=== PATIENT | male | born 1960 | race African-American/Black ===

== ENCOUNTER 2019-10-29 17:43 | Inpatient (IN) | payer OTHER ==
--- NOTE | 2019-10-29 20:21 | HP ---
COWS - Scale Resting Pulse: 1= [place] 81-100 Sweatin= Chills/Flushing Restless Observation: 5= Unable to Sit Still Bone or Joint Aches: 4=Acute Joint/Muscle Pain Runny Nose/ Eye Tearin= Constantly Teary/Runny (runny nose) GI Upset > 30mins: 3= Vomiting/Diarrhea Tremor Observation: 2= Slight Tremor Visible Yawning Observation: 1= 1-2x During Session Anxiety or Irritability: 2=Irritable/Anxious Goose Flesh Skin: 0=Smooth Skin CIWA Score - Admission Criteria OAS Guidelines: Admission for Medically Managed Detox: Requires at least one of the followin. CIWA greater than 12 2. Seizures within the past 24 hours 3. Delirium tremens within the past 24 hours 4. Hallucinations within the past 24 hours 5. Acute intervention needed for co occurring medical disorder 6. Acute intervention needed for co occurring psychiatric disorder 7. Severe withdrawal that cannot be handled at a lower level of care (continued vomiting, continued diarrhea, abnormal vital signs) requiring intravenous medication and/or fluids 8. Admission ROS [facility] Chief Complaint: c/o withdrawal sx's. seeking heroin detox History of Present Illness: HERE FOR HEROIN DETOX. CLIENT IS REFERRED BY HIS HOUSING PROGRAM. FIRST ADMISSION. PRESENTS WITH C/O WITHDRAWAL SX'S. CLIENT REPORTS DAILY HEROIN USE VIA NASAL. HE DENIES IVDU, DRUG OVERDOSE. HE ALSO ABUSES MARIJUANA AND COCAINE. DENIES HX/O SEIZURES, SI/HI/AVH. LONGEST CLEAN TIME 5 YEARS RELAPSING 10 YEARS AGO. DENIES ANY SIGNIFICANT CLEAN TIME IN THE PAST YEAR. THIS IS HIS FIRST TIME SEEKING INPATIENT DRUG TXMENT. HOMELESS- LIVES IN JAIL, UNEMPLOYED, DENIES LEGALS Exam Limitations: No Limitations - Ebola screening Have you traveled outside of the country in the last 21 days: No Have you had contact with anyone from an Ebola affected area: No Have you been sick,other than usual withdrawal symptoms: No Do you have a fever: No - Review of Systems Constitutional: Chills, Loss of Appetite, Malaise, Night Sweats, Changes in sleep, Unintentional Wgt. Loss EENT: reports: Dental Problems (MISSING TEETH), Other (RUNNY NOSE) Respiratory: reports: No Symptoms reported Cardiac: reports: No Symptoms Reported, Edema (FEET) GI: reports: Nausea, Poor Appetite, Poor Fluid Intake, Vomiting : reports: Other (R INGUINAL HERNIA) Musculoskeletal: reports: Back Pain, Joint Pain, Neck Pain Integumentary: reports: Sweating Neuro: reports: Tremors, Unsteady Gait Endocrine: reports: No Symptoms Reported Hematology: reports: No Symptoms Reported Psychiatric: reports: Agitated (IRRITABLE), Anxious, Disorientated (TO DATE) Other Systems: Reviewed and Negative Patient History - Patient Medical History Hx Anemia: No Hx Asthma: No Hx Chronic Obstructive Pulmonary Disease (COPD): No Hx Cancer: No Hx Cardiac Disorders: No Hx Congestive Heart Failure: No Hx Hypertension: No Hx Hypercholesterolemia: No Hx Pacemaker: No HX Cerebrovascular Accident: Yes (STROKE 1.5 YEARS AGO R SIDE WEAKNESS) Hx Seizures: No Hx Dementia: No Hx Diabetes: No Hx Gastrointestinal Disorders: No Hx Liver Disease: No Hx Genitourinary Disorders: No Hx Sexually Transmitted Disorders: No Hx Renal Disease (ESRD): No Hx Thyroid Disease: No Hx Human Immunodeficiency Virus (HIV): Yes (NON COMPLIANT W MEDS/ DX 1984) Hx Hepatitis C: No Hx Depression: No Hx Suicide Attempt: No Hx Bipolar Disorder: No Hx Schizophrenia: No Other Medical History: DENIES - Patient Surgical History Past Surgical History: No Hx Orthopedic Surgery: Yes (1969 R ARM FX) Anesthesia Reaction: No - PPD History Previous Implant?: Yes Documented Results: Negative w/o proof Implanted On Prior [facility] Admission?: No PPD to be Administered?: Yes - Smoking Cessation Smoking history: Current every day smoker Have you smoked in the past 12 months: Yes Aproximately how many cigarettes per day: 10 Cigars Per Day: 0 Hx Chewing Tobacco Use: No Initiated information on smoking cessation: Yes 'Breaking Loose' booklet given: 10/29/19 - Substance & Tx. History Hx Alcohol Use: No Hx Substance Use: Yes Substance Use Type: Cocaine, Heroin, Marijuana Hx Substance Use Treatment: No - Substances abused Heroin Substance route: Inhalation Amount used: 10 BAGS Age of first use: 50 Date of last use: 10/28/19 Cocaine Substance route: Smoking Frequency: Daily Amount used: 2 GMS Age of first use: 18 Date of last use: 10/28/19 Marijuana/Hashish Substance route: Smoking Frequency: 3-6 times per week (5X) Amount used: 4 JOINTS Age of first use: 10 Date of last use: 10/28/19 Admission Physical Exam [facility] - Physical General Appearance: Yes: Cachetic, Tremorous (FELT), Irritable, Anxious, Other (UNKEPT) HEENTM: Yes: EOMI, Normocephalic, Normal Voice, PAUL, Pharynx Normal, Thrush, Other (DENTURES) Respiratory: Yes: Chest Non-Tender, Lungs Clear, Normal Breath Sounds, No Respiratory Distress, No Accessory Muscle Use Neck: Yes: No masses,lesions,Nodules, Supple, Trachea in good position Breast: Yes: Breasts Symetrical Cardiology: Yes: Regular Rhythm, S1, S2, Tachycardia Abdominal: Yes: Non Tender, Flat, Soft, Increased Bowel Sounds Genitourinary: Yes: Within Normal Limits Back: Yes: Normal Inspection Musculoskeletal: Yes: full range of Motion, Muscle weakness (RIGHT SIDE), Other (UNSTEADY AGIT) Extremities: Yes: Normal Capillary Refill, Normal Range of Motion, Non-Tender, Tremors (FELT) Neurological: Yes: Fully Oriented, Alert, Motor Strength 5/5, Depressed Affect Integumentary: Yes: Dry, Warm, Other (ONYCHOMICOSIS OF TOE NAILS) Lymphatic: Yes: Within Normal Limits - Diagnostic (1) Opioid dependence with withdrawal Current Visit: Yes Status: Acute (2) Cocaine dependence, uncomplicated Current Visit: Yes Status: Acute (3) Cannabis dependence, uncomplicated Current Visit: Yes Status: Acute (4) Lives in homeless fpc Current Visit: Yes Status: Chronic (5) HIV (human immunodeficiency virus infection) Current Visit: Yes Status: Chronic Qualifiers: HIV symptom status: unspecified Qualified Code(s): B20 - Human immunodeficiency virus [HIV] disease (6) History of CVA with residual deficit Current Visit: Yes Status: Resolved (7) Right sided weakness Current Visit: Yes Status: Chronic (8) Non compliance w medication regimen Current Visit: Yes Status: Chronic (9) Cachexia associated with AIDS Current Visit: Yes Status: Chronic (10) Candidiasis of mouth Current Visit: Yes Status: Chronic (11) Onychomycosis Current Visit: Yes Status: Chronic Cleared for Admission [facility] - Detox or Rehab [facility] Level of Care: Medically Managed Detox Regimen/Protocol: Methadone Claeared for Rehab Admission: No Inpatient Rehab Admission - Rehab Decision to Admit Inpatient rehab admission?: No
[2019-10-29] MEDS ORDERED: ONDANSETRON *ODT* 4 MG TABLET SL PRN (20:34)
[2019-10-29] MEDS ORDERED: IBUPROFEN 400 MG TABLET (FP) PO PRN (20:34)
[2019-10-29] MEDS ORDERED: MAGNESIUM HYDROX 2400MG/30ML ORAL SUSPENSION 30 ML CUP PO PRN (20:34)
[2019-10-29] MEDS ORDERED: BISMUTH SUBSALICYLATE 524 MG/30 ML UD PO PRN (20:34)
[2019-10-29] MEDS ORDERED: MAGNESIUM CITRATE 300 ML BOTTLE PO PRN (20:34)
[2019-10-29] MEDS ORDERED: NALOXONE HCL 0.4 MG/ML VIAL IM PRN (20:34)
[2019-10-29] MEDS ORDERED: METHOCARBAMOL 500 MG TABLET PO PRN (20:34)
[2019-10-29] MEDS ORDERED: ACETAMINOPHEN 325 MG TABLET (FP) PO PRN ×2 (20:34)
[2019-10-29] MEDS ORDERED: MENTHOL/PHENOL 1 EACH UD MM PRN (20:34)
[2019-10-29] MEDS ORDERED: cloNIDine HCL 0.1 MG TABLET PO PRN (20:34)
[2019-10-29] MEDS ORDERED: P-EPHED 60MG/TRIPROLIDI 2.5MG TABLET PO PRN (20:34)
[2019-10-29] MEDS ORDERED: DICYCLOMINE HCL 10 MG CAPSULE PO PRN (20:34)
[2019-10-29] MEDS ORDERED: NICOTINE POLACRILEX 2 MG GUM BUC PRN (20:34)
[2019-10-29] MEDS ORDERED: MAG HYDROX/AL HYDROX/SIMETH 30 ML UNIT-DOSE CUP PO PRN (20:34)
[2019-10-29 21:52] VITALS: BMI 19.0
[2019-10-29] MEDS ORDERED: METHADONE HCL 10 MG TABLET (FOR DETOX USE ONLY) PO ONE (22:00)
[2019-10-29] MEDS: MELATONIN 5 MG TABLETS PO SCH (22:35)
[2019-10-29] MEDS: THIAMINE HCL 100 MG TABLET (FP) PO SCH (22:35)
[2019-10-29] MEDS: NYSTATIN 500,000 UNITS/5 ML SUSPENSION PO SCH (23:18)
[2019-10-30] MEDS: NYSTATIN 500,000 UNITS/5 ML SUSPENSION PO SCH ×4 (05:18→23:04)
[2019-10-30] MEDS ORDERED: METHADONE HCL 10 MG TABLET (FOR DETOX USE ONLY) PO ONE (10:00)
[2019-10-30 10:11] LABS: HEMATOCRIT 32.4 % (35.4-49); HEMOGLOBIN 10.8 GM/dL (11.7-16.9); MCH 28.7 pg (25.7-33.7); MCHC 33.4 g/dl (32.0-35.9); MEAN CELL VOLUME 85.7 fl (80-96); MEAN PLT VOLUME 8.1 fl (7.5-11.1); PLATELET COUNT 219 K/MM3 (134-434); RBC 3.78 M/mm3 (4.00-5.60); RDW 14.3 % (11.9-15.9); WHITE BLOOD COUNT 7.9 K/mm3 (4.0-10.0)
[2019-10-30 10:27] LABS: ALBUMIN 1.6 g/dl (3.4-5.0); BILIRUBIN,TOTAL 1.1 mg/dL (0.2-1); BLOOD UREA NITROGEN 16.6 mg/dL (7-18); CALCIUM 8.1 mg/dL (8.5-10.1); CREATININE 0.9 mg/dL (0.55-1.3); POTASSIUM 3.6 mmol/L (3.5-5.1)
[2019-10-30] MEDS: PRENATAL VITAMINS W/ FOLIC ACID TABLET (FP) PO SCH (10:52)
[2019-10-30] MEDS: NICOTINE 14 MG/24 HOURS TOPICAL PATCH TD SCH (10:56)
--- NOTE | 2019-10-30 11:56 | PN ---
S COWS - Scale Resting Pulse: 2= [place] 101-120 Sweatin= Beads of Sweat on Face Restless Observation: 1= Difficult to Sit Still Pupil Size: 0= Normal to Room Light Bone or Joint Aches: 2= Severe Diffuse Aches Runny Nose/ Eye Tearin= None GI Upset > 30mins: 0= None Tremor Observation of Outstretched Hands: 0= None Yawning Observation: 1= 1-2x During Session Anxiety or Irritability: 2=Irritable/Anxious Goose Flesh Skin: 0=Smooth Skin COWS Score: 11 [facility] Progress Note (SOAP) Subjective: c/o anxiety, muscle aches, sweats, and irritability. Objective: 10/30/19 11:55 Vital Signs 10/30/19 10/30/19 06:23 09:05 Temperature 98.6 F 98.0 F Pulse Rate 90 102 H Respiratory 16 20 Rate Blood Pressure 106/62 96/53 L O2 Sat by Pulse 96 Oximetry (%) Laboratory Last Values WBC 7.9 K/mm3 (4.0-10.0) 10/30/19 07:25 RBC 3.78 M/mm3 (4.00-5.60) L 10/30/19 07:25 Hgb 10.8 GM/dL (11.7-16.9) L 10/30/19 07:25 Hct 32.4 % (35.4-49) L 10/30/19 07:25 MCV 85.7 fl (80-96) 10/30/19 07:25 MCH 28.7 pg (25.7-33.7) 10/30/19 07:25 MCHC 33.4 g/dl (32.0-35.9) 10/30/19 07:25 RDW 14.3 % (11.9-15.9) 10/30/19 07:25 Plt Count 219 K/MM3 (134-434) 10/30/19 07:25 MPV 8.1 fl (7.5-11.1) 10/30/19 07:25 Sodium 136 mmol/L (136-145) 10/30/19 07:25 Potassium 3.6 mmol/L (3.5-5.1) 10/30/19 07:25 Chloride 102 mmol/L (98-107) 10/30/19 07:25 Carbon Dioxide 27 mmol/L (21-32) 10/30/19 07:25 Anion Gap 7 MMOL/L (8-16) L 10/30/19 07:25 BUN 16.6 mg/dL (7-18) 10/30/19 07:25 Creatinine 0.9 mg/dL (0.55-1.3) 10/30/19 07:25 Est GFR (CKD-EPI)AfAm 107.22 10/30/19 07:25 Est GFR (CKD-EPI)NonAf 92.51 10/30/19 07:25 Random Glucose 90 mg/dL (74-106) 10/30/19 07:25 Calcium 8.1 mg/dL (8.5-10.1) L 10/30/19 07:25 Total Bilirubin 1.1 mg/dL (0.2-1) H 10/30/19 07:25 AST 17 U/L (15-37) 10/30/19 07:25 ALT 7 U/L (13-61) L 10/30/19 07:25 Alkaline Phosphatase 71 U/L (45-117) 10/30/19 07:25 Total Protein 7.0 g/dl (6.4-8.2) 10/30/19 07:25 Albumin 1.6 g/dl (3.4-5.0) L 10/30/19 07:25 Syphilis Serology Reactive (NONREACTIVE) A* 10/30/19 07:25 Labs noted. Assessment: 10/30/19 11:55 AOX3, in no acute respiratory distress. Full ROM, ambulating in the unit. Withdrawal symptoms. Plan: continue detox.
--- NOTE | 2019-10-30 15:00 | EKG ---
Test Reason : Blood Pressure : / mmHG Vent. Rate : 100 BPM Atrial Rate : 100 BPM P-R Int : 160 ms QRS Dur : 082 ms QT Int : 372 ms P-R-T Axes : 081 084 077 degrees QTc Int : 479 ms NORMAL SINUS RHYTHM NORMAL ECG NO PREVIOUS ECGS AVAILABLE Confirmed by Neal Bruner ([id number]) on 10/30/2019 2:59:58 PM Referred By: Confirmed By:Neal Bruner
--- NOTE | 2019-10-30 16:12 | CONSULT ---
[facility] Psychiatric Consult - Data Date of interview: 10/30/19 Admission source: [facility] Identifying data: First visit to [facility] and admission to [address] [place] [address] for this 58 y/o AA male, self-referred for detoxification treatment. CHRISTIE issues : heroin, cocaine, cannabis, nicotine. Patient is , father of five, domiciled (O setting), unemployed and supported on welfare. Substance Abuse History: Discussed with the patient. CHRISTIE profile as follows : Smoking history: Current every day smoker. Have you smoked in the past 12 months: Yes. Approximately how many cigarettes per day: 10. Cigars Per Day: 0. Hx Chewing Tobacco Use: No. Initiated information on smoking cessation: Yes. 'Breaking Loose' booklet given: 10/29/19. - Substance & Tx. History. Hx Alcohol Use: No. Hx Substance Use: Yes. Substance Use Type: Cocaine, Heroin, Marijuana. Hx Substance Use Treatment: No. - Substances abused. Heroin. Substance route: Inhalation. Amount used: 10 BAGS. Age of first use: 50. Date of last use: 10/28/19. Cocaine. Substance route: Smoking. Frequency: Daily. Amount used: 2 GMS. Age of first use: 18. Date of last use: 10/28/19. Marijuana/Hashish. Substance route: Smoking. Frequency: 3-6 times per week (5X). Amount used: 4 JOINTS. Age of first use: 10. Date of last use: 10/28/19. History of multiple CHRISTIE treatment failures. Medical History: Medical profile is remarkable for HIV infection since 1985 (non-adherent to ART medications), cachexia, CVA with right sided weakness since 2019 (uses a walker or cane for ambulation), onychomcosis (toe nails) and history of orthosurgery (fracture of right arm in 1970). Psychiatric History: Patient denies history of psychiatric hospitalizations, OPD care or suicide attempts. Physical/Sexual Abuse/Trauma History: Patient denies history of abuse. Additional Comment: Toxicology results not found for review. Mental Status Exam - Mental Status Exam Alert and Oriented to: Time, Place, Person Cognitive Function: Good Patient Appearance: Unkempt, Disheveled (thin habitus, cachectic frame; tall stature; patient appears much older than his stated age) Mood: Withdrawn, Hopeful Affect: Mood Congruent, Constricted Patient Behavior: Fatigued, Talkative (friendly on approach), Appropriate, Cooperative Speech Pattern: Clear, Appropriate Voice Loudness: Normal Thought Process: Intact, Goal Oriented Thought Disorder: Not Present Hallucinations: Denies Suicidal Ideation: Denies Homicidal Ideation: Denies Insight/Judgement: Poor Sleep: Fair Appetite: Poor, Weight loss Gait/Station: Other (unsteady gait; uses a wheelchair to move around the unit) Psychiatric Findings - Problem List ([place] 1, 2,3) (1) Opioid dependence with withdrawal Current Visit: Yes Status: Acute (2) Cannabis dependence, uncomplicated Current Visit: Yes Status: Chronic (3) Cocaine dependence, uncomplicated Current Visit: Yes Status: Chronic (4) Nicotine dependence Current Visit: Yes Status: Chronic - Initial Treatment Plan Initial Treatment Plan: Psychoeducation. Falls precautions. Sleep hygiene. Support. Motivational counseling. Detoxification in progress. Observation.
[2019-10-30] MEDS ORDERED: PNEUMOC 13-VAL CONJ-DIP CRM/PF 0.5 ML DISP.SYRIN IM ONE ×2 (17:00→18:15)
[2019-10-30 19:33] LABS: EPI CELLS 7 /uL (0-25.1); HYALINE CASTS 0 /uL (0-3.1); URINE APPEARANCE CLEAR; URINE BACTERIA 48 /uL (0-1359); URINE BILIRUBIN NEGATIVE (NEGATIVE); URINE COLOR DK YELLOW; URINE GLUCOSE (UA) NEGATIVE (NEGATIVE); URINE KETONE NEGATIVE (NEGATIVE); URINE LEUK ESTERASE NEGATIVE (NEGATIVE); URINE NITRITE NEGATIVE (NEGATIVE); URINE PROTEIN 1+ (NEGATIVE); URINE RBC 20 /uL (0-23.9); URINE UROBILINOGEN 4.0 E.U/dl mg/dL (0.2-1.0); URINE WBC 4 /uL (0-25.8)
[2019-10-30] MEDS: THIAMINE HCL 100 MG TABLET (FP) PO SCH (23:04)
[2019-10-30] MEDS: MELATONIN 5 MG TABLETS PO SCH (23:04)
[2019-10-31] MEDS: NYSTATIN 500,000 UNITS/5 ML SUSPENSION PO SCH ×4 (05:27→23:24)
--- NOTE | 2019-10-31 09:40 | PN ---
[facility] COWS - Scale Resting Pulse: 2= [place] 101-120 Sweatin= Chills/Flushing Restless Observation: 0= Sits Still Pupil Size: 1= Pupils >than Normal Bone or Joint Aches: 1= Mild Discomfort Runny Nose/ Eye Tearin= None GI Upset > 30mins: 2= Nausea/Diarrhea Tremor Observation of Outstretched Hands: 1= Tremor [place], Not Seen Yawning Observation: 0= None Anxiety or Irritability: 1=Feels Anxious/Irritable Goose Flesh Skin: 0=Smooth Skin COWS Score: 9 S Progress Note (SOAP) Subjective: 58 years old male was admitted on 10/29/19 for opiate withdrawal sx management treating with methadone detox regiment mr lebron states that he lost his walker and use wheelchair assisting ambulation when "I am here" ate breakfast tolerated well continue ensure supplement Objective: 10/31/19 09:39 Vital Signs - 24 hr 10/30/19 10/30/19 10/30/19 12:53 14:39 16:40 Temperature 97.7 F 98 F Pulse Rate 90 95 H Respiratory 20 16 Rate Blood Pressure 96/52 L 96/60 O2 Sat by Pulse 92 L 96 96 Oximetry (%) 10/30/19 10/31/19 10/31/19 20:56 06:13 08:58 Temperature 98.0 F 98.1 F 99.1 F Pulse Rate 92 H 84 102 H Respiratory 16 18 20 Rate Blood Pressure 97/56 L 105/58 L 112/56 L O2 Sat by Pulse 98 96 Oximetry (%) Laboratory Tests 10/29/19 10/30/19 10/30/19 22:15 07:25 07:25 WBC 7.9 RBC 3.78 L Hgb 10.8 L Hct 32.4 L MCV 85.7 MCH 28.7 MCHC 33.4 RDW 14.3 Plt Count 219 MPV 8.1 Sodium Potassium Chloride Carbon Dioxide Anion Gap BUN Creatinine Est GFR (CKD-EPI)AfAm Est GFR (CKD-EPI)NonAf Random Glucose Calcium Total Bilirubin AST ALT Alkaline Phosphatase Total Protein Albumin Urine Color Urine Appearance Urine pH Ur Specific [place] Urine Protein Urine Glucose (UA) Urine Ketones Urine Blood Urine Nitrite Urine Bilirubin Urine Urobilinogen Ur Leukocyte Esterase Urine WBC (Auto) Urine RBC (Auto) Urine Casts (Auto) U Epithel Cells (Auto) Urine Bacteria (Auto) Syphilis Serology Reactive A* RPR Titer COVID-19 (LARY) Not detected 10/30/19 10/30/19 10/30/19 07:25 07:25 17:24 WBC RBC Hgb Hct MCV MCH MCHC RDW Plt Count MPV Sodium 136 Potassium 3.6 Chloride 102 Carbon Dioxide 27 Anion Gap 7 L BUN 16.6 Creatinine 0.9 Est GFR (CKD-EPI)AfAm 107.22 Est GFR (CKD-EPI)NonAf 92.51 Random Glucose 90 Calcium 8.1 L Total Bilirubin 1.1 H AST 17 ALT 7 L Alkaline Phosphatase 71 Total Protein 7.0 Albumin 1.6 L Urine Color Dk yellow Urine Appearance Clear Urine pH 7.0 Ur Specific [place] 1.020 Urine Protein 1+ H Urine Glucose (UA) Negative Urine Ketones Negative Urine Blood Negative Urine Nitrite Negative Urine Bilirubin Negative Urine Urobilinogen 4.0 e.u/dl Ur Leukocyte Esterase Negative Urine WBC (Auto) 4 Urine RBC (Auto) 20 Urine Casts (Auto) 0 U Epithel Cells (Auto) 7 Urine Bacteria (Auto) 48 Syphilis Serology RPR Titer Reactive 1:1 H COVID-19 (LARY) 10/31/19 09:41 syphilis contacted treated Assessment: 10/31/19 09:41 opiate withdrawal Plan: methadone regiment
[2019-10-31] MEDS ORDERED: METHADONE HCL 5 MG TABLET (FOR DETOX USE ONLY) PO ONE (10:00)
[2019-10-31] MEDS: NICOTINE 14 MG/24 HOURS TOPICAL PATCH TD SCH (10:46)
[2019-10-31] MEDS: PRENATAL VITAMINS W/ FOLIC ACID TABLET (FP) PO SCH (10:46)
[2019-10-31] MEDS: guaiFENesin 200 MG/10 ML 10 ML UNIT-DOSE CUPS PO PRN (17:00)
[2019-10-31] MEDS: THIAMINE HCL 100 MG TABLET (FP) PO SCH (22:33)
[2019-10-31] MEDS: MELATONIN 5 MG TABLETS PO SCH (22:34)
[2019-11-01] MEDS: NYSTATIN 500,000 UNITS/5 ML SUSPENSION PO SCH ×4 (06:23→23:03)
[2019-11-01] MEDS ORDERED: METHADONE HCL 5 MG TABLET (FOR DETOX USE ONLY) ONE (09:42)
[2019-11-01] MEDS ORDERED: METHADONE HCL 10 MG TABLET (FOR DETOX USE ONLY) ONE (09:42)
[2019-11-01] MEDS ORDERED: METHADONE (DETOX) 10 MG, METHADONE (DETOX) 5 MG PO ONE (10:00)
[2019-11-01] MEDS: PRENATAL VITAMINS W/ FOLIC ACID TABLET (FP) PO SCH (10:50)
[2019-11-01] MEDS: NICOTINE 14 MG/24 HOURS TOPICAL PATCH TD SCH (11:12)
--- NOTE | 2019-11-01 14:36 | PN ---
BHS COWS - Scale Resting Pulse: 2= [place] 101-120 Sweatin= No chills or Flushing Restless Observation: 0= Sits Still Pupil Size: 0= Normal to Room Light Bone or Joint Aches: 1= Mild Discomfort Runny Nose/ Eye Tearin= Nasal Congestion GI Upset > 30mins: 1= Stomach Cramp Tremor Observation of Outstretched Hands: 1= Tremor [place], Not Seen Yawning Observation: 1= 1-2x During Session Anxiety or Irritability: 1=Feels Anxious/Irritable Goose Flesh Skin: 0=Smooth Skin COWS Score: 8 [facility] Progress Note (SOAP) Subjective: alert,irritable,anxious,interrupted sleep,aching pain Objective: 11/01/19 14:35 Vital Signs Temperature 97.2 F L 11/01/19 12:45 Pulse Rate 101 H 11/01/19 12:45 Respiratory Rate 115 H 11/01/19 12:45 Blood Pressure 92/58 L 11/01/19 08:42 O2 Sat by Pulse Oximetry (%) 95 11/01/19 12:45 Assessment: 11/01/19 14:35 withdrawal symptom Plan: continue detox methadone regimen,fluid
[2019-11-01] MEDS: guaiFENesin 200 MG/10 ML 10 ML UNIT-DOSE CUPS PO PRN ×2 (17:00→22:51)
[2019-11-01] MEDS: MELATONIN 5 MG TABLETS PO SCH (22:51)
[2019-11-01] MEDS: THIAMINE HCL 100 MG TABLET (FP) PO SCH (22:51)
[2019-11-02] MEDS: NYSTATIN 500,000 UNITS/5 ML SUSPENSION PO SCH ×3 (06:28→18:56)
[2019-11-02] MEDS: NICOTINE 14 MG/24 HOURS TOPICAL PATCH TD SCH (09:12)
[2019-11-02] MEDS: PRENATAL VITAMINS W/ FOLIC ACID TABLET (FP) PO SCH (09:12)
[2019-11-02] MEDS ORDERED: METHADONE HCL 10 MG TABLET (FOR DETOX USE ONLY) PO ONE (10:00)
--- NOTE | 2019-11-02 11:13 | PN ---
BHS COWS - Scale Resting Pulse: 1= [place] 81-100 Sweatin= No chills or Flushing Restless Observation: 0= Sits Still Pupil Size: 0= Normal to Room Light Bone or Joint Aches: 1= Mild Discomfort Runny Nose/ Eye Tearin= Nasal Congestion GI Upset > 30mins: 1= Stomach Cramp Tremor Observation of Outstretched Hands: 1= Tremor [place], Not Seen Yawning Observation: 0= None Anxiety or Irritability: 1=Feels Anxious/Irritable Goose Flesh Skin: 0=Smooth Skin COWS Score: 6 BHS Progress Note (SOAP) Subjective: alert,irritable,interrupted sleep,constipation,feel weak,using the wheelchair Objective: 11/02/19 11:11 Vital Signs Temperature 97.3 F L 11/02/19 08:50 Pulse Rate 100 H 11/02/19 08:50 Respiratory Rate 20 11/02/19 08:50 Blood Pressure 83/53 L 11/02/19 08:50 O2 Sat by Pulse Oximetry (%) 95 11/02/19 05:10 Assessment: 11/02/19 11:12 withdrawal symptom but much less Plan: continue detox methadone regimen,discharge in am
[2019-11-02] MEDS: THIAMINE HCL 100 MG TABLET (FP) PO SCH (22:56)
[2019-11-02] MEDS: MELATONIN 5 MG TABLETS PO SCH (22:56)
[2019-11-03] MEDS: NYSTATIN 500,000 UNITS/5 ML SUSPENSION PO SCH ×3 (03:42→11:22)
[2019-11-03] MEDS ORDERED: METHADONE HCL 5 MG TABLET (FOR DETOX USE ONLY) PO ONE (06:00)
--- NOTE | 2019-11-03 09:19 | PN ---
[facility] CIWA - CIWA Score Nausea/Vomitin-No Nausea/No Vomiting Muscle Tremors: None Anxiety: 1-Mildly Anxious Agitation: 0-Normal Activity Paroxysmal Sweats: No Perspiration Orientation: 0-Oriented Tacttile Disturbances: 0-None Auditory Disturbances: 0-None Visual Disturbances: 0-None Headache: 0-None Present CIWA-Ar Total Score: 1 S Progress Note (SOAP) Subjective: alert,no complaint Objective: 11/03/19 09:18 Vital Signs Temperature 98.1 F 11/03/19 06:25 Pulse Rate 92 H 11/03/19 06:25 Respiratory Rate 92 H 11/03/19 06:25 Blood Pressure 110/64 11/03/19 06:25 O2 Sat by Pulse Oximetry (%) 95 11/03/19 06:25 Assessment: 11/03/19 09:18 detox completed,no withdrawal symptom Plan: stable for discharge today,follow up with after care program [facility] arrangement
--- NOTE | 2019-11-03 09:25 | DS ---
[facility] Detox Discharge Summary Admission Date: 10/29/19 Discharge Date: 11/03/19 - History Present History: Cannabis Dependence, Cocaine Dependence, Opioid Dependence Additional Comments: alert,oriented x 3 lung clear on auscultation bilaterally abdomen soft,no pain,no tenderness no swelling of legs detox completed,no withdrawal symptom stable for discharge today follow up with after care program [facility] arrangement follow up with after care program [facility] as arrangement total time of discharge spending 35 minutes Pertinent Past History: history of old cva with right side weakness oropharyngeal candidiasis onychomycosis weight loss ambulation with walker but loss the walker history of syphilis treated - Physical Exam Results Vital Signs: Vital Signs Temperature 98.1 F 11/03/19 06:25 Pulse Rate 92 H 11/03/19 06:25 Respiratory Rate 92 H 11/03/19 06:25 Blood Pressure 110/64 11/03/19 06:25 O2 Sat by Pulse Oximetry (%) 95 11/03/19 06:25 Pertinent Admission Physical Exam Findings: withdrawal signs and symptom Vital Signs Temperature 98.1 F 11/03/19 06:25 Pulse Rate 92 H 11/03/19 06:25 Respiratory Rate 92 H 11/03/19 06:25 Blood Pressure 110/64 11/03/19 06:25 O2 Sat by Pulse Oximetry (%) 95 11/03/19 06:25 Laboratory Last Values WBC 7.9 K/mm3 (4.0-10.0) 10/30/19 07:25 RBC 3.78 M/mm3 (4.00-5.60) L 10/30/19 07:25 Hgb 10.8 GM/dL (11.7-16.9) L 10/30/19 07:25 Hct 32.4 % (35.4-49) L 10/30/19 07:25 MCV 85.7 fl (80-96) 10/30/19 07:25 MCH 28.7 pg (25.7-33.7) 10/30/19 07:25 MCHC 33.4 g/dl (32.0-35.9) 10/30/19 07:25 RDW 14.3 % (11.9-15.9) 10/30/19 07:25 Plt Count 219 K/MM3 (134-434) 10/30/19 07:25 MPV 8.1 fl (7.5-11.1) 10/30/19 07:25 Sodium 136 mmol/L (136-145) 10/30/19 07:25 Potassium 3.6 mmol/L (3.5-5.1) 10/30/19 07:25 Chloride 102 mmol/L (98-107) 10/30/19 07:25 Carbon Dioxide 27 mmol/L (21-32) 10/30/19 07:25 Anion Gap 7 MMOL/L (8-16) L 10/30/19 07:25 BUN 16.6 mg/dL (7-18) 10/30/19 07:25 Creatinine 0.9 mg/dL (0.55-1.3) 10/30/19 07:25 Est GFR (CKD-EPI)AfAm 107.22 10/30/19 07:25 Est GFR (CKD-EPI)NonAf 92.51 10/30/19 07:25 Random Glucose 90 mg/dL (74-106) 10/30/19 07:25 Calcium 8.1 mg/dL (8.5-10.1) L 10/30/19 07:25 Total Bilirubin 1.1 mg/dL (0.2-1) H 10/30/19 07:25 AST 17 U/L (15-37) 10/30/19 07:25 ALT 7 U/L (13-61) L 10/30/19 07:25 Alkaline Phosphatase 71 U/L (45-117) 10/30/19 07:25 Total Protein 7.0 g/dl (6.4-8.2) 10/30/19 07:25 Albumin 1.6 g/dl (3.4-5.0) L 10/30/19 07:25 Urine Color Dk yellow 10/30/19 17:24 Urine Appearance Clear 10/30/19 17:24 Urine pH 7.0 (5.0-8.0) 10/30/19 17:24 Ur Specific [place] 1.020 (1.010-1.035) 10/30/19 17:24 Urine Protein 1+ (NEGATIVE) H 10/30/19 17:24 Urine Glucose (UA) Negative (NEGATIVE) 10/30/19 17:24 Urine Ketones Negative (NEGATIVE) 10/30/19 17:24 Urine Blood Negative (NEGATIVE) 10/30/19 17:24 Urine Nitrite Negative (NEGATIVE) 10/30/19 17:24 Urine Bilirubin Negative (NEGATIVE) 10/30/19 17:24 Urine Urobilinogen 4.0 e.u/dl mg/dL (0.2-1.0) 10/30/19 17:24 Ur Leukocyte Esterase Negative (NEGATIVE) 10/30/19 17:24 Urine WBC (Auto) 4 /uL (0-25.8) 10/30/19 17:24 Urine RBC (Auto) 20 /uL (0-23.9) 10/30/19 17:24 Urine Casts (Auto) 0 /uL (0-3.1) 10/30/19 17:24 U Epithel Cells (Auto) 7 /uL (0-25.1) 10/30/19 17:24 Urine Bacteria (Auto) 48 /uL (0-1359) 10/30/19 17:24 Syphilis Serology Reactive (NONREACTIVE) A* 10/30/19 07:25 RPR Titer Reactive 1:1 (NONREACTIVE) H 10/30/19 07:25 COVID-19 (LARY) Not detected (Not Detected) 10/29/19 22:15 history of syphilis treated - Treatment Hospital Course: Detox Protocol Followed, Detoxed Safely, Responded well, Discharged Condition Good, Rehab Referral Accepted Patient has Accepted a Rehab Referral to: [facility] - Medication Discharge Medications: Ambulatory Orders NK [No Known Home Medication] 10/29/19 - Diagnosis (1) Opioid dependence with withdrawal Current Visit: Yes Status: Acute (2) Syphilis contact, treated Current Visit: Yes Status: Acute (3) Cachexia associated with AIDS Current Visit: Yes Status: Chronic (4) Cannabis dependence, uncomplicated Current Visit: Yes Status: Chronic (5) Cocaine dependence, uncomplicated Current Visit: Yes Status: Chronic (6) HIV (human immunodeficiency virus infection) Current Visit: Yes Status: Chronic Qualifiers: HIV symptom status: unspecified Qualified Code(s): B20 - Human immunodeficiency virus [HIV] disease (7) Nicotine dependence Current Visit: Yes Status: Chronic (8) Onychomycosis Current Visit: Yes Status: Chronic (9) Right sided weakness Current Visit: Yes Status: Chronic (10) CVA (cerebral vascular accident) Current Visit: Yes Status: Chronic (11) Weight loss Current Visit: Yes Status: Acute (12) Walker as ambulation aid Current Visit: Yes Status: Acute
[2019-11-03 09:46] VITALS: BP 100/66; PULSE 104; TEMP 99.3
[2019-11-03] MEDS: PRENATAL VITAMINS W/ FOLIC ACID TABLET (FP) PO SCH (11:20)
[2019-11-03] MEDS: NICOTINE 14 MG/24 HOURS TOPICAL PATCH TD SCH (11:24)
== END 2019-11-03 11:22 | disposition other institution (70) | DRG 773 ==
LOC: YASAS 17:43 → Y3N 20:59
PROVIDERS: ADMIT Allergy & Immunology; ATTEND Allergy & Immunology
PROC: HZ2ZZZZ Detoxification Services for Substance Abuse Treatment (ICD-10-PCS; principal; 2019-10-29)
DX: F11.23 Opioid dependence with withdrawal (principal); F14.20 Cocaine dependence, uncomplicated; F12.20 Cannabis dependence, uncomplicated; B20 Human immunodeficiency virus [HIV] disease; R64 Cachexia; B37.0 Candidal stomatitis; I69.851 Hemiplegia and hemiparesis following other cerebrovascular disease affecting right dominant side; B35.1 Tinea unguium; R26.89 Other abnormalities of gait and mobility; Z68.1 Body mass index [BMI] 19.9 or less, adult; Z99.89 Dependence on other enabling machines and devices; Z56.0 Unemployment, unspecified; Z59.0 Homelessness; Z86.19 Personal history of other infectious and parasitic diseases
CPT/HCPCS: 36415; 80053; 81003; 85027; 86593; 86780; 90670; 93005; 93010; Q0162; U0003

== ENCOUNTER 2019-11-03 11:28 | Inpatient (IN) | payer OTHER ==
[2019-11-03] MEDS ORDERED: hydrOXYzine PAMOATE 25 MG CAPSULE (FP) PO PRN (13:25)
[2019-11-03] MEDS ORDERED: MAG HYDROX/AL HYDROX/SIMETH 30 ML UNIT-DOSE CUP PO PRN (13:25)
[2019-11-03] MEDS ORDERED: MAGNESIUM HYDROX 2400MG/30ML ORAL SUSPENSION 30 ML CUP PO PRN (13:25)
[2019-11-03] MEDS ORDERED: LOPERAMIDE HCL 2 MG CAPSULE PO PRN (13:25)
[2019-11-03] MEDS ORDERED: NICOTINE POLACRILEX 2 MG GUM BUC PRN (13:25)
[2019-11-03] MEDS ORDERED: P-EPHED 60MG/TRIPROLIDI 2.5MG TABLET PO PRN (13:25)
[2019-11-03] MEDS ORDERED: MENTHOL/PHENOL 1 EACH UD MM PRN (13:25)
[2019-11-03] MEDS ORDERED: guaiFENesin 200 MG/10 ML 10 ML UNIT-DOSE CUPS PO PRN (13:25)
[2019-11-03] MEDS ORDERED: ACETAMINOPHEN 325 MG TABLET (FP) PO PRN (13:25)
[2019-11-03] MEDS ORDERED: IBUPROFEN 400 MG TABLET (FP) PO PRN (13:25)
[2019-11-03] MEDS ORDERED: MAGNESIUM CITRATE 300 ML BOTTLE PO PRN (13:25)
--- NOTE | 2019-11-03 13:27 | HP ---
[facility] Rehab Assess/Revision - Admission History Admitted to Rehab from: [facility] [place] - Vital signs Vital Signs: Vital Signs Period Temp Pulse Resp BP Sys/Carrera Pulse Ox Last 24 Hr 98.4 F 108 18 98/63 - Findings Detox History & Physical reviewed: Yes Concur with findings: Yes Comments/Additional Findings: Physical. General Appearance: No apparent distress. HEENTM:EOMI, Normocephalic, Thrush, DENTURES. Respiratory: No Respiratory Distress, No Accessory Muscle Use. Neck: Supple,. Cardiology: Regular Rhythm. Abdominal: +Bowel Sounds. Musculoskeletal: full range of Motion, Inpatient Rehab Admission - Rehab Decision to Admit Inpatient rehab admission?: Yes - Initial Determination Are CD services needed?: Yes Free of communicable disease: Yes Not in need of hospitalization: Yes - Rehab Admission Criteria Previous failed treatment: Yes Poor recovery environment: Yes Comorbidities: Yes Lacks judgement: Yes Patient is meeting Inpatient Rehab admission criteria:: Yes
[2019-11-03] MEDS: NYSTATIN 500,000 UNITS/5 ML SUSPENSION PO SCH ×2 (17:49→23:08)
[2019-11-03] MEDS: MELATONIN 5 MG TABLETS PO SCH (21:55)
[2019-11-03] MEDS: THIAMINE HCL 100 MG TABLET (FP) PO SCH (21:55)
[2019-11-04] MEDS: NYSTATIN 500,000 UNITS/5 ML SUSPENSION PO SCH ×4 (06:42→23:30)
[2019-11-04] MEDS: PRENATAL VITAMINS W/ FOLIC ACID TABLET (FP) PO SCH (10:35)
[2019-11-04] MEDS: NICOTINE 7 MG/24 HOURS TOPICAL PATCH TD SCH (10:36)
[2019-11-04] MEDS: MELATONIN 5 MG TABLETS PO SCH (21:41)
[2019-11-04] MEDS: THIAMINE HCL 100 MG TABLET (FP) PO SCH (21:41)
[2019-11-05] MEDS: NYSTATIN 500,000 UNITS/5 ML SUSPENSION PO SCH ×4 (07:16→23:39)
[2019-11-05] MEDS: NICOTINE 7 MG/24 HOURS TOPICAL PATCH TD SCH (10:45)
[2019-11-05] MEDS: PRENATAL VITAMINS W/ FOLIC ACID TABLET (FP) PO SCH (10:47)
[2019-11-05] MEDS: MELATONIN 5 MG TABLETS PO SCH (22:32)
[2019-11-05] MEDS: THIAMINE HCL 100 MG TABLET (FP) PO SCH (22:32)
[2019-11-06] MEDS: NYSTATIN 500,000 UNITS/5 ML SUSPENSION PO SCH ×2 (06:30→13:19)
--- NOTE | 2019-11-06 07:49 | PN ---
PELON Progress Note Note: Patient's has fever and nurse reports that he is coughing. He is also hypotensive and tachycardic. Patient is being transferred to ER for further evaluation. Endorsed to Dr. Reagan Vital Signs Temperature 102 F H 11/06/19 06:25 Pulse Rate 120 H 11/06/19 06:25 Respiratory Rate 11/06/19 06:25 Blood Pressure 95/56 L 11/06/19 06:25 O2 Sat by Pulse Oximetry (%) 91 L 11/06/19 06:25 Action: Transfer patient to ER
[2019-11-06 08:07] VITALS: BP 88/58; PULSE 118; TEMP 101.4
[2019-11-06] MEDS: NICOTINE 7 MG/24 HOURS TOPICAL PATCH TD SCH (10:08)
[2019-11-06] MEDS: PRENATAL VITAMINS W/ FOLIC ACID TABLET (FP) PO SCH (10:08)
== END 2019-11-06 14:50 | disposition short-term general hospital (02) | DRG 772 ==
LOC: YASAS 11:28 → Y3W 11:42
PROVIDERS: ADMIT Allergy & Immunology; ATTEND Internal Medicine
PROC: HZ42ZZZ Group Counseling for Substance Abuse Treatment, Cognitive-Behavioral (ICD-10-PCS; principal; 2019-11-03)
DX: F11.20 Opioid dependence, uncomplicated (principal); F14.20 Cocaine dependence, uncomplicated; F12.20 Cannabis dependence, uncomplicated; F17.210 Nicotine dependence, cigarettes, uncomplicated; B20 Human immunodeficiency virus [HIV] disease; R64 Cachexia; Z68.1 Body mass index [BMI] 19.9 or less, adult; B37.0 Candidal stomatitis; B35.1 Tinea unguium; I69.851 Hemiplegia and hemiparesis following other cerebrovascular disease affecting right dominant side; Z56.0 Unemployment, unspecified; Z59.0 Homelessness; R50.9 Fever, unspecified; R05 Cough; R00.0 Tachycardia, unspecified; I95.9 Hypotension, unspecified

== ENCOUNTER 2019-11-06 08:54 | Inpatient (IN) | payer OTHER ==
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
[2019-11-06] MEDS ORDERED: SODIUM CHLORIDE 0.9% 500 ML INFUS.BAG IV ONE (09:39)
[2019-11-06 09:56] LABS: BASO % 1.3 % (0-2.0); EOS % 0.1 % (0-4.5); HEMATOCRIT 34.7 % (35.4-49); HEMOGLOBIN 11.2 GM/dL (11.7-16.9); LYMPH % 4.3 % (8-40); MCH 27.4 pg (25.7-33.7); MCHC 32.2 g/dl (32.0-35.9); MEAN PLT VOLUME 7.3 fl (7.5-11.1); MONO % 4.8 % (3.8-10.2); NEUT % 89.5 % (42.8-82.8); PLATELET COUNT 401 K/MM3 (134-434); RBC 4.09 M/mm3 (4.00-5.60); RDW 14.7 % (11.9-15.9); WHITE BLOOD COUNT 10.4 K/mm3 (4.0-10.0)
[2019-11-06 10:03] LABS: INR 1.77 (0.83-1.09)
[2019-11-06 10:06] LABS: ACTIVATED PTT 31.6 SECONDS (25.2-36.5)
[2019-11-06 10:27] LABS: ALBUMIN 1.6 g/dl (3.4-5.0); ALK PHOS 92 U/L (45-117); ANION GAP 5 MMOL/L (8-16); BILIRUBIN,TOTAL 0.4 mg/dL (0.2-1); CALCIUM 8.4 mg/dL (8.5-10.1); CHLORIDE 99 mmol/L (98-107); CO2 28 mmol/L (21-32); GLUCOSE,RANDOM 154 mg/dL (74-106); POTASSIUM 4.2 mmol/L (3.5-5.1); SGOT/AST 18 U/L (15-37); SODIUM 133 mmol/L (136-145); TOT PROT 8.3 g/dl (6.4-8.2)
[2019-11-06 10:33] LABS: SGPT/ALT 8 U/L (13-61)
--- NOTE | 2019-11-06 11:12 | PDOC ---
Documentation entered by Angelic Apple SCRIBE, acting as scribe for Clint Reagan MD. Clint Reagan MD: This documentation has been prepared by the scribe, Angelic Apple SCRIBE, under my direction and personally reviewed by me in its entirety. I confirm that the documentation accurately reflects all work, treatment, procedures, and medical decision making performed by me. Attending Attestation - Resident Resident Name: AdrielLudwin - ED Attending Attestation I have performed the following: I have examined & evaluated the patient, The case was reviewed & discussed with the resident, I agree w/resident's findings & plan, Exceptions are as noted - HPI HPI: 11/06/19 09:14 Patient is a 58 year old male with a significant past medical history of HIV (off medications x10 months due to homelessness), smoking, and substance abuse (cocain and heroin), who presents to the ED, from [facility], with a fever of 102. Patient received Tylenol prior to ED arrival. Patient endorses: mild cough with sputum Patient denies: nausea, vomiting, runny nose, SOB, sore throat, chest pain, abdominal pain, dysuria, diarrhea, or any other related symptoms. Allergies: NKDA - Physicial Exam PE: 11/06/19 11:09 GENERAL: The patient is awake, alert, and fully oriented, Nontoxic - in no acute distress. HEAD: Normocephalic, atraumatic. EYES: extraocular movements intact, sclera anicteric, conjunctiva clear. ENT: Normal voice, Moist mucous membranes. NECK: Normal range of motion, supple LUNGS: scattered rales, L lower lobe, R base, no acute respiratory distress HEART: Regular rate and rhythm, normal S1 and S2 without murmur, rub or gallop. ABDOMEN: Soft, nontender, No guarding, no rebound. No CVA tenderness EXTREMITIES: Normal range of motion, no edema. NEUROLOGICAL: No facial assymetry, Normal speech, PSYCH: Normal mood, normal affect. SKIN: Warm, Dry, normal turgor, - Medical Decision Making 11/06/19 11:10 58-year-old polysubstance abuse, HIV of heart unclear AIDS status sent in for care for evaluation of fever and mild cough without any associated chest pain, dyspnea exertion, hemoptysis, leg swelling. Suspect possible pneumonia, blood work reviewed Chest x-ray noted for right upper lobe pneumonia possible atelectasis versus pneumonia in the left lower lobe We will treat the patient for community-acquired pneumonia patient is borderline hypoxic also as the patient has been homeless, is a drug user, with HIV consider possible TB for his right upper lobe infiltrate. Will admit for further management Heart Score/ECG Review - ECG Impressions Comment:: 11/06/19 11:11 Twelve-lead EKG was performed and reviewed by me. There is normal sinus rhythm with a normal rate. Rate of 92 The axis is normal. The intervals are normal. There is normal R wave progression There are no ST or T wave abnormalities. Impression: Normal twelve-lead EKG Discharge - Discharge Information Problems reviewed: Yes Clinical Impression/Diagnosis: HIV (human immunodeficiency virus infection) Qualifiers: HIV symptom status: unspecified Qualified Code(s): B20 - Human immunodeficiency virus [HIV] disease Pneumonia Qualifiers: Pneumonia type: due to unspecified organism Laterality: right Lung location: upper lobe of lung Qualified Code(s): J18.9 - Pneumonia, unspecified organism Condition: Guarded Disposition: AGAINST MEDICAL ADVICE - Follow up/Referral - Patient Discharge Instructions - Post Discharge Activity
[2019-11-06 11:23] LABS: ANISOCYTOSIS 0; MACROCYTOSIS 0; PLATELET ESTIMATE NORMAL
[2019-11-06] MEDS ORDERED: AZITHROMYCIN IVPB 500 MG in DEXTROSE 5%-WATER - 250 ML IVPB ONE (11:24)
[2019-11-06] MEDS ORDERED: CEFTRIAXONE 1 GM in DEXTROSE 5%-WATER - 100 ML IVPB ONE (11:24)
[2019-11-06] MEDS ORDERED: CEFTRIAXONE 1 GM/50 ML BAG ONE (11:31)
[2019-11-06] MEDS ORDERED: AZITHROMYCIN IVPB 500 MG/250 ML BAG IVPB ONE (11:31)
--- NOTE | 2019-11-06 12:27 | HP ---
CHIEF COMPLAINT: fever PCP: none HISTORY OF PRESENT ILLNESS: 58 yo m w/ PMH HIV (not on HAART, last CD4+ unknown), polysubstance abuse [facility]. Patient endorses worsening cough over the past 3 days, but denies other ssx. He [facility]. He endorses being homeless for the past 2 years and has been unable to take his HAART because of this. He states that he was treated for tuberculosis in the past (doesn't remember when) and completed treatment. Patient states that [facility]. ER course was notable for: (1) ceftriaxone, azithro (2) IVF (3) CXR w/ patchy RUL infiltrate Recent Travel: none PAST MEDICAL HISTORY: see HPI PAST SURGICAL HISTORY: Social History: Smokin/2 pack per week since 2014 Alcohol: drinks henessy several times per year Drugs: Crack (smokes ~$100 daily) Heroin (Sniffs ~ 10-12 bags daily) last use ~12 days ago Allergies No Known Allergies Allergy (Verified 11/06/19 08:57) HOME MEDICATIONS: Home Medications Medication Instructions Recorded Nystatin Oral Suspension - 500,000 units PO Q6HPO cup 11/03/19 [Nystatin Oral Susp 552594 Units/5 ML -] REVIEW OF SYSTEMS negative except for HPI PHYSICAL EXAMINATION Vital Signs - 24 hr 11/06/19 09:00 Temperature 98.5 F Pulse Rate 79 Respiratory 17 Rate Blood Pressure 102/59 L O2 Sat by Pulse 95 Oximetry (%) GENERAL: Awake, alert, and fully oriented, in no acute distress. HEAD: Normal with no signs of trauma. EYES: Pupils equal, round and reactive to light, extraocular movements intact, sclera anicteric, conjunctiva clear. No lid lag. LUNGS: Breath sounds equal, mild wheezing heard bilaterally. no crackles. No accessory muscle use. HEART: Regular rate and rhythm, normal S1 and S2 without murmur, rub or gallop. ABDOMEN: Soft, nontender, not distended, normoactive bowel sounds, no guarding, no rebound, no masses. No hepatomegaly or splenomegaly. LOWER EXTREMITIES: 2+ pulses, warm, well-perfused. No calf tenderness. No p eripheral edema. NEUROLOGICAL: Cranial nerves II-X intact. Normal speech. Laboratory Results - last 24 hr 11/06/19 11/06/19 11/06/19 09:15 09:15 09:15 WBC 10.4 H RBC 4.09 Hgb 11.2 L Hct 34.7 L MCV 85.0 MCH 27.4 MCHC 32.2 RDW 14.7 Plt Count 401 D MPV 7.3 L Absolute Neuts (auto) 9.3 H Neutrophils % 89.5 H Neutrophils % (Manual) 90.7 H Band Neutrophils % 1.0 Lymphocytes % 4.3 L Lymphocytes % (Manual) 3.1 L Monocytes % 4.8 Monocytes % (Manual) 5 Eosinophils % 0.1 Eosinophils % (Manual) 0.0 Basophils % 1.3 Basophils % (Manual) 0.0 Myelocytes % (Man) 0 Promyelocytes % (Man) 0 Blast Cells % (Manual) 0 Nucleated RBC % 0 Metamyelocytes 0 Hypochromia 0 Platelet Estimate Normal Polychromasia 0 Poikilocytosis 0 Anisocytosis 0 Microcytosis 0 Macrocytosis 0 PT with INR 21.00 H INR 1.77 H PTT (Actin FS) 31.6 Sodium 133 L Potassium 4.2 Chloride 99 Carbon Dioxide 28 Anion Gap 5 L BUN 18.0 Creatinine 1.0 Est GFR (CKD-EPI)AfAm 94.39 Est GFR (CKD-EPI)NonAf 81.44 Random Glucose 154 H Lactic Acid Calcium 8.4 L Total Bilirubin 0.4 AST 18 ALT 8 L Alkaline Phosphatase 92 Creatine Kinase 14 L Troponin I < 0.02 Total Protein 8.3 H Albumin 1.6 L 11/06/19 09:15 WBC RBC Hgb Hct MCV MCH MCHC RDW Plt Count MPV Absolute Neuts (auto) Neutrophils % Neutrophils % (Manual) Band Neutrophils % Lymphocytes % Lymphocytes % (Manual) Monocytes % Monocytes % (Manual) Eosinophils % Eosinophils % (Manual) Basophils % Basophils % (Manual) Myelocytes % (Man) Promyelocytes % (Man) Blast Cells % (Manual) Nucleated RBC % Metamyelocytes Hypochromia Platelet Estimate Polychromasia Poikilocytosis Anisocytosis Microcytosis Macrocytosis PT with INR INR PTT (Actin FS) Sodium Potassium Chloride Carbon Dioxide Anion Gap BUN Creatinine Est GFR (CKD-EPI)AfAm Est GFR (CKD-EPI)NonAf Random Glucose Lactic Acid 2.2 H* Calcium Total Bilirubin AST ALT Alkaline Phosphatase Creatine Kinase Troponin I Total Protein Albumin ASSESSMENT/PLAN: 58 yo m w/ PMH HIV (not on HAART, last CD4+ unknown), polysubstance abuse [facility]. #Cough and fever in the setting of untreated HIV/AIDS, possible CAP, r/o PCP, COVID-19 -CXR shows patchy infiltrates in the RUL and the left base -Patient [facility] and [facility] -ceftriaxone and azithromycin given in the ED; will continue -added Bactrim DS daily to treat possible PCP -Will obtain sputum culture -sputum for AFB to r/o TB given possible history of treatment and homeless status -No cavitations seen on CXR -possible remote history of TB treatement -[facility] patient -airborne precautions for TB and possible COVID -will send CD4 and viral load -ID consult for further ABX and HAART guidance -will benefit from f/u at the [facility] on discharge #polysubstance abuse -patient last used ~ 12 days ago -withdrawal syndromes unlikely, will monitor #Prophy -lovenox 40mg SQ #Dispo -med-surg Family Medical History Family History: Denies Visit type - Emergency Visit Emergency Visit: Yes ED Registration Date: 11/06/19 Care time: The patient presented to the Emergency Department on the above date and was hospitalized for further evaluation of their emergent condition. - New Patient This patient is new to me today: Yes Date on this admission: 11/06/19 - Critical Care Critical Care patient: No
[2019-11-06] MEDS: SODIUM CHLORIDE 1,000 ML IV SCH (17:54)
[2019-11-07] MEDS: NYSTATIN 500,000 UNITS/5 ML SUSPENSION PO SCH ×6 (00:07→23:03)
[2019-11-07 00:50] LABS: EPI CELLS 4 /uL (0-25.1); HYALINE CASTS 0 /uL (0-3.1); URINE APPEARANCE CLEAR; URINE BACTERIA 5 /uL (0-1359); URINE BILIRUBIN NEGATIVE (NEGATIVE); URINE COLOR YELLOW; URINE GLUCOSE (UA) NEGATIVE (NEGATIVE); URINE KETONE NEGATIVE (NEGATIVE); URINE LEUK ESTERASE NEGATIVE (NEGATIVE); URINE NITRITE NEGATIVE (NEGATIVE); URINE PROTEIN TRACE (NEGATIVE); URINE RBC 434 /uL (0-23.9); URINE WBC 2 /uL (0-25.8)
[2019-11-07 03:03] VITALS: BMI 16.0
--- NOTE | 2019-11-07 08:04 | PN ---
Progress Note (short form) - Note Progress Note: S: Patient feels improved with ongoing productive cough. Patient feels his breathing is better. Feels cold at times. Ate breakfast fully. No difficulty with swallowing Vital Signs Temperature 100.0 F H 11/06/19 22:00 Pulse Rate 89 11/06/19 22:00 Respiratory Rate 22 H 11/06/19 22:00 Blood Pressure 127/72 11/06/19 22:00 O2 Sat by Pulse Oximetry (%) 91 L 11/06/19 22:00 PE: Gen: Thin appearing, NAD, sitting up in bed HEENT: NC/AT, EOMI, sclera anicteric, SARAH, resolving thrush of oropharynx LUNG: Diminished R middle lobe with some coarse sounds, no wheezing appreciated. CARD: RRR no murmurs appreciated ABD: soft, thin, NT/ND, + BS EXT: No rashes or lesions, no edema, strong pulses CBC, BMP 11/07/19 07:40 11/07/19 07:40 Active Medications Enoxaparin Sodium (Lovenox -) 40 mg SQ DAILY [facility] Ceftriaxone Sodium 1 gm/ (Dextrose) 50 mls @ 100 mls/hr IVPB DAILY [facility] Azithromycin (Zithromax 500mg Ivpb (Pre-Docked)) 500 mg in 250 mls @ 250 mls/hr IVPB DAILY [facility] Sodium Chloride (Normal Saline -) 1,000 mls @ 50 mls/hr IV ASDIR [facility] Stop: 11/08/19 13:29 Last Admin: 11/06/19 17:54 Dose: 50 mls/hr Documented by: Nystatin (Nystatin Oral Suspension -) 500,000 units PO Q6HPO [facility] Last Admin: 11/07/19 06:59 Dose: 500,000 units Documented by: Trimethoprim/Sulfamethoxazole (Bactrim Ds -) 1 each PO DAILY [facility] Assessment and Plan: Severe sepsis 2/2 Community Acquired Pneumonia R/O Opportunisitic infection Thrush Lactic Acidosis Hypoalbuminemia likely malnutrition HIV infection Normocytic Anemia History of Polysubstance abuse requiring detox --Continue Rocephin, Zithromax --Continue Bactrim PPX for PCP; low suspicion of PCP pna due to findings of CXR --F/u sputum cultures --F/u Blood and Ucx --Awaiting CD4 count results --Will likely need to stay on daily Bactrim PPX --Hold off on HAART therapy at this time unless specified by ID --ID consulted --RPR 1:1 titre noted; likely related to previous infection and reportedly treated in S notes, however unknown time --Continue nystatin oral suspension --Ensure supplementation Dispo: Continue monitoring DO Zak Lomeli IM
[2019-11-07 08:22] LABS: HEMATOCRIT 34.5 % (35.4-49); HEMOGLOBIN 11.2 GM/dL (11.7-16.9); MCH 27.4 pg (25.7-33.7); MCHC 32.4 g/dl (32.0-35.9); MEAN CELL VOLUME 84.6 fl (80-96); MEAN PLT VOLUME 7.2 fl (7.5-11.1); PLATELET COUNT 398 K/MM3 (134-434); RBC 4.07 M/mm3 (4.00-5.60); RDW 14.7 % (11.9-15.9); WHITE BLOOD COUNT 9.4 K/mm3 (4.0-10.0)
[2019-11-07 08:49] LABS: ALBUMIN 1.4 g/dl (3.4-5.0); BILIRUBIN,TOTAL 0.7 mg/dL (0.2-1); BLOOD UREA NITROGEN 18.4 mg/dL (7-18); CALCIUM 8.3 mg/dL (8.5-10.1); CREATININE 0.9 mg/dL (0.55-1.3); MAGNESIUM 2.1 mg/dL (1.8-2.4); PHOSPHOROUS 3.1 mg/dL (2.5-4.9); POTASSIUM 4.8 mmol/L (3.5-5.1); TOT PROT 8.1 g/dl (6.4-8.2)
[2019-11-07] MEDS ORDERED: DEXTROSE 5%-WATER - 50 ML IVPB ONE (10:15)
[2019-11-07] MEDS ORDERED: cefTRIAXone SODIUM 1 GM VIAL ONE (10:15)
[2019-11-07] MEDS: CEFTRIAXONE 1 GM in DEXTROSE 5%-WATER - 50 ML IVPB SCH (10:27)
[2019-11-07] MEDS: ENOXAPARIN NA (PORCINE) 40 MG/0.4 ML DISP.SYRIN SQ SCH (10:27)
[2019-11-07] MEDS: SULFAMETHOXAZOLE/TRIMETHOPRIM 800MG/160MG D.S. TABLET PO SCH (10:27)
[2019-11-07] MEDS: AZITHROMYCIN IVPB 500 MG/250 ML BAG IVPB SCH (11:46)
[2019-11-07] MEDS: ACETAMINOPHEN 325 MG TABLET (FP) PO PRN (13:12)
--- NOTE | 2019-11-07 20:22 | PN ---
Progress Note (short form) - Note Progress Note: ID CONSULT DICTATED R/O COMMUNITY ACQUIRED V. ATYPICAL PNEUMONIA ? AFB DISEASE HIV R/O AIDS AWAIT WORK UP OBTAIN QUANTIFERON SPUTUM AFB X 3 SPUTUM C/S, URINE LEGIONELLA AG CHECK CD4 CT CHEST CONTINUE ZITHROMAX/CEFTRIAXONE REFERRAL TO [facility] POST DISCHARGE
[2019-11-08] MEDS ORDERED: guaiFENesin 200 MG/10 ML 10 ML UNIT-DOSE CUPS PO ONE (01:36)
[2019-11-08] MEDS: NYSTATIN 500,000 UNITS/5 ML SUSPENSION PO SCH ×4 (05:14→23:00)
[2019-11-08] MEDS: SODIUM CHLORIDE 1,000 ML IV SCH ×2 (05:15→18:51)
[2019-11-08] MEDS: ACETAMINOPHEN 325 MG TABLET (FP) PO PRN (06:08)
[2019-11-08 07:59] LABS: POTASSIUM 4.5 mmol/L (3.5-5.1)
[2019-11-08 08:17] LABS: BLOOD UREA NITROGEN 15.6 mg/dL (7-18); CALCIUM 8.1 mg/dL (8.5-10.1); CREATININE 1.1 mg/dL (0.55-1.3)
[2019-11-08] MEDS ORDERED: cefTRIAXone SODIUM 1 GM VIAL ONE (08:48)
[2019-11-08] MEDS ORDERED: DEXTROSE 5%-WATER - 50 ML IVPB ONE (08:48)
[2019-11-08] MEDS: SULFAMETHOXAZOLE/TRIMETHOPRIM 800MG/160MG D.S. TABLET PO SCH (09:03)
[2019-11-08] MEDS: CEFTRIAXONE 1 GM in DEXTROSE 5%-WATER - 50 ML IVPB SCH (09:03)
[2019-11-08] MEDS: ENOXAPARIN NA (PORCINE) 40 MG/0.4 ML DISP.SYRIN SQ SCH (09:03)
--- NOTE | 2019-11-08 11:06 | EKG ---
Test Reason : Blood Pressure : / mmHG Vent. Rate : 092 BPM Atrial Rate : 092 BPM P-R Int : 134 ms QRS Dur : 080 ms QT Int : 362 ms P-R-T Axes : 073 083 064 degrees QTc Int : 447 ms NORMAL SINUS RHYTHM POSSIBLE LEFT ATRIAL ENLARGEMENT BORDERLINE ECG WHEN COMPARED WITH ECG OF 29-OCT-2019 21:06, NO SIGNIFICANT CHANGE WAS FOUND Confirmed by DEMETRIUS MARTINEZ MD ([id number]) on 11/08/2019 11:05:15 AM Referred By: Confirmed By:DEMETRIUS MARTINEZ MD
--- NOTE | 2019-11-08 11:37 | CONS ---
INFECTIOUS DISEASE CONSULTATION DATE OF CONSULTATION: DATE OF DICTATION: 11/08/2019 HISTORY: The patient is a 58-year-old male who is evaluated for pneumonia. He was admitted to [facility] on November 06, 2019, for detox. He has a history of polysubstance abuse. He had apparently been there for several days. He was transferred to the hospital after he was noted to have fever of 102. Chest x-ray showed a right upper lobe infiltrate. He was placed on respiratory isolation because of a history of homelessness and concern for possible tuberculosis. He also has a history of HIV disease which is not presently being treated. Patient reports cough which is described as dry. He denies any chest pain or hemoptysis, denies any known TB exposure. He reports having a negative PPD at [facility]. The patient was diagnosed with HIV several years ago. He has not been on antiretroviral therapy for at least the past 10 months because of his homelessness. He is unaware of his most recent CD4 count and viral load. PAST MEDICAL HISTORY: Positive for HIV infection, possible AIDS. ALLERGIES: No known allergies. MEDICATIONS: Include Zithromax, ceftriaxone, Bactrim, Lovenox. SOCIAL HISTORY: Positive for polysubstance abuse. Positive for tobacco use. He is apparently homeless. SYSTEMS REVIEW: Neurologic: No loss of consciousness, seizure activity, focal weakness. Cardiac: Negative chest pain or palpitations. Respiratory: As per HPI. Gastrointestinal: Negative vomiting or diarrhea. Genitourinary: Negative for urinary tract infection. LABORATORY DATA: White count 9.4, neutrophils 90, band 1, lymphocytes 4, monocytes 4, hematocrit 34.5, platelet count 398. BUN 15, creatinine 1.1. Liver enzymes normal, lactic acid 1.5. Urine analysis 2 white cells. CD4 lymphocyte count pending. COVID-19 not detected. Blood culture is pending. Sputum AFB x1 pending. Chest x-ray shows a somewhat dense-appearing right upper lobe infiltrate. No clear cavitation. PHYSICAL EXAMINATION: General: He is chronically ill-appearing. Vital Signs: Temperature 98.3, T-max 100, blood pressure 103/62, pulse 95 regular, respirations 18 per minute. HEENT: Sclerae are anicteric. Positive oral candidiasis. Heart: Sounds S1, S2. Lungs: Rhonchi bilaterally. Abdomen: Soft and nontender. Extremities: Negative for edema. IMPRESSION: 1. Rule out community-acquired versus atypical pneumonia. 2. Rule out acid-fast bacillus disease. 3. Human immunodeficiency virus positive, rule out acquired immunodeficiency syndrome. Await workup. Obtain QuantiFERON. Sputum AFB x3. Sputum culture. Urine legionella antigen. Check CD4 lymphocyte count. CAT scan of the chest to further assess right upper lobe infiltrate. Continue empiric Zithromax and ceftriaxone. Outpatient referral to the [facility] for followup pending discharge. Thank you for the kind referral. OZZY MARX M.D. [id number]
[2019-11-08] MEDS: AZITHROMYCIN IVPB 500 MG/250 ML BAG IVPB SCH (12:13)
--- NOTE | 2019-11-08 13:57 | PN ---
Teaching Attending Note Name of Resident: Ludwin De La Cruz ATTENDING PHYSICIAN STATEMENT I saw and evaluated the patient. I reviewed the resident's note and discussed the case with the resident. I agree with the resident's findings and plan as documented. SUBJECTIVE: Seen and examined at bedside. Patient had temperature of 100.1 overnight. Sti ll complaining of mild cough and sore throat. OBJECTIVE Last Vital Signs Temp Pulse Resp BP Pulse Ox 98.0 F 87 18 99/59 L 95 11/08/19 09:04 11/08/19 09:04 11/08/19 09:04 11/08/19 09:04 11/08/19 10:00 PE: Per resident note Labs/Imaging: reviewed ASSESSMENT/PLAN 4-year-old male past medical history of HIV for 30+ years, not currently on HAART, last CD4 count unknown, polysubstance abuse, history of TB, presents from [facility] for fever and cough. #Pneumonia in the setting of untreated HIV, history of TB ID on board: Appreciate recommendations Pending CT chest Pending QuantiFERON Patient requires rule out TB: AFB x3 Follow-up sputum cultures, urine Legionella Continue ceftriaxone azithromycin #HIV V off heart Patient reports was diagnosed with HIV in the late 80s, has been on HIV meds in the past, off for the last year Follow-up CD4 count Discussed with ID: We will not restart on HAART now but will refer to the [facility] on discharge
--- NOTE | 2019-11-08 15:14 | PN ---
Progress Note, Physician History of Present Illness: AWAKE IN BED C/O FEELING THIRSTY NO C/O CHEST PAIN/ DYSPNEA/ COUGH NO C/O SPUTUM/ HEMOPTYSIS NO C/O FEVER/ CHILLS LOW GRADE TEMP CT SHOWS DENSE RUL CONSOLIDATION WITH CAVITATION - Current Medication List Current Medications: Active Medications Acetaminophen (Tylenol -) 650 mg PO Q6H PRN PRN Reason: PAIN LEVEL 4 - 6 Last Admin: 11/08/19 06:08 Dose: 650 mg Documented by: Enoxaparin Sodium (Lovenox -) 40 mg SQ DAILY [facility] Last Admin: 11/08/19 09:03 Dose: 40 mg Documented by: Ceftriaxone Sodium 1 gm/ (Dextrose) 50 mls @ 100 mls/hr IVPB DAILY [facility] Last Admin: 11/08/19 09:03 Dose: 100 mls/hr Documented by: Azithromycin (Zithromax 500mg Ivpb (Pre-Docked)) 500 mg in 250 mls @ 250 mls/hr IVPB DAILY [facility] Last Admin: 11/08/19 12:13 Dose: Not Given Documented by: Nystatin (Nystatin Oral Suspension -) 500,000 units PO Q6HPO [facility] OF [facility] Last Admin: 11/08/19 12:13 Dose: 500,000 units Documented by: Trimethoprim/Sulfamethoxazole (Bactrim Ds -) 1 each PO DAILY [facility] Last Admin: 11/08/19 09:03 Dose: 1 each Documented by: - Objective Vital Signs: Vital Signs Temperature 98.0 F 11/08/19 09:04 Pulse Rate 87 11/08/19 09:04 Respiratory Rate 18 11/08/19 09:04 Blood Pressure 99/59 L 11/08/19 09:04 O2 Sat by Pulse Oximetry (%) 95 11/08/19 10:00 Constitutional: Yes: No Distress Eyes: Yes: Conjunctiva Clear Cardiovascular: Yes: Regular Rate and Rhythm, S1, S2 Respiratory: Yes: Diminished Gastrointestinal: Yes: Normal Bowel Sounds, Soft. No: Tenderness Edema: No Labs: CBC, BMP 11/07/19 07:40 11/08/19 06:13 INR, PTT INR 1.77 (0.83-1.09) H 11/06/19 09:15 Assessment/Plan CAVITARY PNEUMONIA IN HOMELESS PT WITH HIV ? AFB DZ ? NECROTIZING PNEUMONIA ? CAVITARY CARCINOMA ? ASPERGILLUS HIV, PROBABLE AIDS AWAIT SPUTUM AFB, QUANTIFERON SPUTUM C/S CONTINUE CEFTRIAXONE/ ZITHROMAX
[2019-11-08] MEDS: AZITHROMYCIN 500 MG TABLET PO SCH (18:51)
--- NOTE | 2019-11-08 19:32 | PN ---
Physical Exam: SUBJECTIVE: Patient seen and examined. Pt. states that he has lino scant production with his cough. Pt. denies any acute complaints currently . Pt. states that he has had over 50 lb. weight loss and had night sweats starting last night. OBJECTIVE: Vital Signs Period Temp Pulse Resp BP Sys/Carrera Pulse Ox Last 24 Hr 98.0 F-100.1 F 82-90 18-18 99-107/59-62 95-95 GENERAL: The patient is awake, alert, in no acute distress, thin, cachetic. HEAD: Normal with no signs of trauma. EYES: Sclera anicteric, conjunctiva clear. ENT: moist mucous membranes. NECK: Trachea midline, full range of motion, supple. LUNGS: Diffuse crackles, no accessory muscle use. HEART: Regular rate and rhythm, S1, S2 ABDOMEN: Soft, nontender, nondistended, normoactive bowel sounds, no guarding, no rebound EXTREMITIES: 2+ dorsal pedal pulses, warm, no calf tenderness, well-perfused, no edema. NEUROLOGICAL: Normal speech, gait not observed. PSYCH: Normal mood, normal affect. SKIN: Warm, dry, normal turgor Laboratory Results - last 24 hr 11/08/19 06:13 Sodium 132 L Potassium 4.5 Chloride 102 Carbon Dioxide 25 Anion Gap 6 L BUN 15.6 Creatinine 1.1 Est GFR (CKD-EPI)AfAm 84.12 Est GFR (CKD-EPI)NonAf 72.58 Random Glucose 100 Calcium 8.1 L Active Medications Generic Name Dose Route Start Last Admin Trade Name Freq PRN Reason Stop Dose Admin Acetaminophen 650 mg 11/07/19 12:55 11/08/19 06:08 Tylenol - PO 650 mg Q6H PRN Administration PAIN LEVEL 4 - 6 Azithromycin 500 mg 11/08/19 18:30 11/08/19 18:51 Zithromax PO 11/10/19 10:01 500 mg DAILY RONIT Administration Enoxaparin Sodium 40 mg 11/07/19 10:00 11/08/19 09:03 Lovenox - SQ 40 mg DAILY RONIT Administration Ceftriaxone Sodium 1 gm/ 50 mls @ 100 mls/hr 11/07/19 10:00 11/08/19 09:03 Dextrose IVPB 100 mls/hr DAILY RONIT Administration Nystatin 500,000 units 11/06/19 18:00 11/08/19 17:08 Nystatin Oral Suspension - PO 500,000 units Q6HPO RONIT Administration Trimethoprim/Sulfamethoxazole 1 each 11/07/19 10:00 11/08/19 09:03 Bactrim Ds - PO 1 each DAILY RONIT Administration ASSESSMENT/PLAN: Pt. is a 58 y.o. M w/ PMHx. of HIV for (ddx. in , has been off HAART for last year, last CD4 count unknown), polysubstance abuse,Hx. of TB, presents from [facility] for fever and cough. #Pneumonia in the setting of untreated HIV, history of TB ID on board: Appreciate recommendations CT chest: shows dense RUL consolidation with cavitation, scattered infiltrates and bibasilar atelectasis/consolidations, moderate COPD f/u QuantiFERON Patient requires rule out TB: AFB x3 Follow-up sputum cultures, urine Legionella Continue ceftriaxone azithromycin -ruling out TB vs. Aspergillus vs. a necrotic PNA vs. atypical PNA given CT findings -PPD may not be reliable as Pt. may be anergic given non-adherence to HAART #HIV Patient reports was diagnosed with HIV in the late 80s, has been on HIV meds in the past, off for the last year Follow-up CD4 count Discussed with ID: We will not restart on HAART now but will refer to the [facility] on discharge, this will prevent reconstitution syndrome while fighting off pneumonia -c/w Nystatin for oral thrush -c/w Bactrim #FEN no IVF, encourage PO intake monitor electrolytes and replete as needed Regular Diet, Dietary consult appreciated for Malnutrition, BMI:16, will require supplemenatation #DVT PPx. Lovenox 40 #Dispo observe in isolation until 3 negative AFBs. Pt. will require hospitalization for at least 7-10 days per [place] Public quidelines, d/w ID Visit type - Emergency Visit Emergency Visit: Yes ED Registration Date: 11/06/19 Care time: The patient presented to the Emergency Department on the above date and was hospitalized for further evaluation of their emergent condition. - New Patient This patient is new to me today: Yes Date on this admission: 11/08/19 - Critical Care Critical Care patient: No - Discharge Referral Referred to [facility] Med P.C.: No ATTENDING PHYSICIAN STATEMENT I saw and evaluated the patient. I reviewed the resident's note and discussed the case with the resident. I agree with the resident's findings and plan as documented. SUBJECTIVE: OBJECTIVE: ASSESSMENT AND PLAN:
[2019-11-09 06:51] LABS: BASO % 0.9 % (0-2.0); EOS % 1.7 % (0-4.5); HEMATOCRIT 35.6 % (35.4-49); HEMOGLOBIN 11.5 GM/dL (11.7-16.9); LYMPH % 10.1 % (8-40); MCH 27.3 pg (25.7-33.7); MCHC 32.3 g/dl (32.0-35.9); MEAN CELL VOLUME 84.4 fl (80-96); MEAN PLT VOLUME 7.4 fl (7.5-11.1); MONO % 6.5 % (3.8-10.2); NEUT % 80.8 % (42.8-82.8); PLATELET COUNT 408 K/MM3 (134-434); RBC 4.22 M/mm3 (4.00-5.60); RDW 14.8 % (11.9-15.9); WHITE BLOOD COUNT 7.3 K/mm3 (4.0-10.0)
[2019-11-09] MEDS: NYSTATIN 500,000 UNITS/5 ML SUSPENSION PO SCH ×4 (06:58→23:08)
[2019-11-09 07:19] LABS: ALBUMIN 1.5 g/dl (3.4-5.0); BILIRUBIN,TOTAL 0.7 mg/dL (0.2-1); BLOOD UREA NITROGEN 16.2 mg/dL (7-18); CALCIUM 8.4 mg/dL (8.5-10.1); CREATININE 0.9 mg/dL (0.55-1.3); MAGNESIUM 2.1 mg/dL (1.8-2.4); PHOSPHOROUS 3.1 mg/dL (2.5-4.9); POTASSIUM 5.2 mmol/L (3.5-5.1); TOT PROT 8.6 g/dl (6.4-8.2)
[2019-11-09 09:17] LABS: ANISOCYTOSIS 0; MACROCYTOSIS 0; PLATELET ESTIMATE NORMAL
[2019-11-09] MEDS ORDERED: DEXTROSE 5%-WATER - 50 ML IVPB ONE (10:55)
[2019-11-09] MEDS ORDERED: PT OWN MED DRAWER 7, Y5N ONE (10:55)
[2019-11-09] MEDS ORDERED: cefTRIAXone SODIUM 1 GM VIAL ONE (10:55)
[2019-11-09] MEDS: SULFAMETHOXAZOLE/TRIMETHOPRIM 800MG/160MG D.S. TABLET PO SCH (10:59)
[2019-11-09] MEDS: ENOXAPARIN NA (PORCINE) 40 MG/0.4 ML DISP.SYRIN SQ SCH (10:59)
[2019-11-09] MEDS: AZITHROMYCIN 500 MG TABLET PO SCH (10:59)
[2019-11-09] MEDS: CEFTRIAXONE 1 GM in DEXTROSE 5%-WATER - 50 ML IVPB SCH (10:59)
--- NOTE | 2019-11-09 12:30 | PN ---
Physical Exam: SUBJECTIVE: Patient seen and examined at bedside. No acute events overnight. Pt states his breathing is better. OBJECTIVE: Vital Signs Period Temp Pulse Resp BP Sys/Carrera Pulse Ox Last 24 Hr 97.6 F-98.8 F 90-93 18-18 100-112/65-73 94-97 GENERAL: The patient is awake, alert, in no acute distress, thin, cachetic. HEAD: Normal with no signs of trauma. EYES: Sclera anicteric, conjunctiva clear. ENT: moist mucous membranes. NECK: Trachea midline, full range of motion, supple. LUNGS: Diffuse crackles, no accessory muscle use. HEART: Regular rate and rhythm, S1, S2 ABDOMEN: Soft, nontender, nondistended, normoactive bowel sounds, no guarding, no rebound EXTREMITIES: 2+ dorsal pedal pulses, warm, no calf tenderness, well-perfused, no edema. NEUROLOGICAL: Normal speech, gait not observed. PSYCH: Normal mood, normal affect. SKIN: Warm, dry, normal turgor Laboratory Results - last 24 hr 11/07/19 11/09/19 11/09/19 07:40 05:25 05:25 WBC 9.7 7.3 RBC 4.22 Hgb 11.5 L Hct 35.6 MCV 84.4 MCH 27.3 MCHC 32.3 RDW 14.8 Plt Count 408 MPV 7.4 L Absolute Neuts (auto) 5.9 Absolute Lymphs (auto) 0.7 Neutrophils % 80.8 Neutrophils % (Manual) 81.7 Band Neutrophils % 0.0 Lymphocytes % 10.1 D Lymphocytes % (Manual) 11.5 D Monocytes % 6.5 Monocytes % (Manual) 3 L Eosinophils % 1.7 D Eosinophils % (Manual) 1.0 D Basophils % 0.9 Basophils % (Manual) 1.0 D Myelocytes % (Man) 2 D Promyelocytes % (Man) 0 Blast Cells % (Manual) 0 Nucleated RBC % 0 Lymphocytes 7 Metamyelocytes 0 Nucleated RBCs TNP Hypochromia 1+ Platelet Estimate Normal Polychromasia 1+ Poikilocytosis 1+ Anisocytosis 0 Microcytosis 0 Macrocytosis 0 Stomatocytes 1+ Sodium 133 L Potassium 5.2 H Chloride 102 Carbon Dioxide 28 Anion Gap 4 L BUN 16.2 Creatinine 0.9 Est GFR (CKD-EPI)AfAm 107.22 Est GFR (CKD-EPI)NonAf 92.51 Random Glucose 72 L Calcium 8.4 L Phosphorus 3.1 Magnesium 2.1 Total Bilirubin 0.7 AST 16 ALT 6 L Alkaline Phosphatase 94 Total Protein 8.6 H Albumin 1.5 L Absolute CD3 Count 505 L % CD3+ Lymphocytes 72.[address] 6 L % CD4+ Lymphocyte 0.9 L CD4/CD8 Ratio 0.01 L % CD8+ Lymphocyte 68.1 H Absolute CD8 Count 477 Active Medications Generic Name Dose Route Start Last Admin Trade Name Freq PRN Reason Stop Dose Admin Acetaminophen 650 mg 11/07/19 12:55 11/08/19 06:08 Tylenol - PO 650 mg Q6H PRN Administration PAIN LEVEL 4 - 6 Azithromycin 500 mg 11/08/19 18:30 11/09/19 10:59 Zithromax PO 11/10/19 10:01 500 mg DAILY RONIT Administration Enoxaparin Sodium 40 mg 11/07/19 10:00 11/09/19 10:59 Lovenox - SQ 40 mg DAILY RONIT Administration Ceftriaxone Sodium 1 gm/ 50 mls @ 100 mls/hr 11/07/19 10:00 11/09/19 10:59 Dextrose IVPB 100 mls/hr DAILY RONIT Administration Nystatin 500,000 units 11/06/19 18:00 11/09/19 06:58 Nystatin Oral Suspension - PO 500,000 units Q6HPO RONIT Administration Trimethoprim/Sulfamethoxazole 1 each 11/07/19 10:00 11/09/19 10:59 Bactrim Ds - PO 1 each DAILY RONIT Administration ASSESSMENT/PLAN: 58M w/ PMHx. of HIV for (ddx. in , has been off HAART for last year, last CD4 count unknown), polysubstance abuse, Hx. of TB, presents from [facility] for fever and cough. #Pneumonia w/ cavitary lesion; in the setting of untreated HIV, history of TB. Rule out TB vs. Aspergillus vs. a necrotic PNA vs. atypical PNA given CT findings ID on board: Appreciate recommendations CT chest +RUL consolidation with cavitation, scattered infiltrates and bibasilar atelectasis/consolidations, moderate COPD QuantiFERON pending, HIV-1 RNA PCR pending Patient requires rule out TB: AFB x3 SpCx +LFGNB, Urine Ag +Strep pneumo/neg for Leg Continue Ceftriaxone 1gm QD (started 11/06), and Azithromycin 500 PO QD -Pulm consulted #HIV Patient reports was diagnosed with HIV in the late 80s, has been on HIV meds in the past, off for the last year CD4 count 6 Discussed with ID: We will not restart on HAART now but will refer to the [facility] on discharge, this will prevent reconstitution syndrome while fighting off pneumonia -AFB pending; will need 3 negative tests -c/w Nystatin for oral thrush -c/w Bactrim 1 mg PO QD #Malnutrition; BMI 16 -add Magic Cup/Ensure #FEN -PO hydration -monitor electrolytes and replete as needed -Regular Diet + Magic Cup/Ensure per dietary recs, BMI:16, will require supplemenatation #DVT PPx DVT: Lovenox 40 Dispo -observe in isolation until 3 negative AFBs. Pt will require hospitalization for at least 7-10 days per [place] Public guidelines, d/w ID Visit type - Emergency Visit Emergency Visit: Yes ED Registration Date: 11/06/19 Care time: The patient presented to the Emergency Department on the above date and was hospitalized for further evaluation of their emergent condition. - New Patient This patient is new to me today: Yes Date on this admission: 11/09/19 - Critical Care Critical Care patient: No - Discharge Referral Referred to [facility] Med P.C.: No ATTENDING PHYSICIAN STATEMENT I saw and evaluated the patient. I reviewed the resident's note and discussed the case with the resident. I agree with the resident's findings and plan as documented. SUBJECTIVE: OBJECTIVE: ASSESSMENT AND PLAN:
--- NOTE | 2019-11-09 13:10 | PN ---
Teaching Attending Note Name of Resident: Arina Leigh ATTENDING PHYSICIAN STATEMENT I saw and evaluated the patient. I reviewed the resident's note and discussed the case with the resident. I agree with the resident's findings and plan as documented. SUBJECTIVE: Seen and examined at bedside. Found to have cavetary pneumonia, Sputum cultures positive for lactose fermenting gram-negative bacilli, CD4 count of 6 OBJECTIVE Last Vital Signs Temp Pulse Resp BP Pulse Ox 97.6 F 93 H 18 100/66 94 L 11/09/19 09:06 11/09/19 09:06 11/09/19 09:06 11/09/19 09:06 11/09/19 09:06 PE: Per resident note Labs/Imaging: reviewed ASSESSMENT/PLAN 4-year-old male past medical history of HIV for 30+ years, not currently on HAART, last CD4 count unknown, polysubstance abuse, history of TB, presents from [facility] for fever and cough. #Cavitary Pneumonia in the setting of untreated HIV, history of TB ID on board: Appreciate recommendations Pending QuantiFERON Patient requires rule out TB: AFB x3 Follow-up sputum cultures, urine Legionella Continue ceftriaxone azithromycin #HIV/AIDS CD4 count of 6. Patient reports was diagnosed with HIV in the late 80s, has been on HIV meds in the past, off for the last year -currently on bactrim and azithromycin -further recs per ID Discussed with ID: We will not restart on HAART now but will refer to the [facility] on discharge
--- NOTE | 2019-11-09 15:19 | PN ---
Progress Note (short form) - Note Progress Note: PULMONARY CONSULTATION DICTATED 11/09/19 IMP CAVITARY PNEUMONIA ? TB,BACTERIAL HIV/AIDS NOT ON HAART H/O LATENT TB TREATED WITH INH X 6 MONTHS SUBSTANCE ABUSE TOBACCO ABUSE PLAN SUPPLEMENTAL O2 INHALED BRONCHODILATORS ABX PER ID SPUTUM FOR AFB,CULTURES, ECHO COVID PCR NEGATIVE DR LOVE Problem List - Problems (1) Pneumonia Code(s): J18.9 - PNEUMONIA, UNSPECIFIED ORGANISM Qualifiers: Pneumonia type: due to unspecified organism Laterality: right Lung location: upper lobe of lung Qualified Code(s): J18.9 - Pneumonia, unspecified organism (2) HIV (human immunodeficiency virus infection) Code(s): B20 - HUMAN IMMUNODEFICIENCY VIRUS [HIV] DISEASE Qualifiers: HIV symptom status: unspecified Qualified Code(s): B20 - Human immunodeficiency virus [HIV] disease (3) Opioid dependence with withdrawal Code(s): F11.23 - OPIOID DEPENDENCE WITH WITHDRAWAL (4) CVA (cerebral vascular accident) Code(s): I63.9 - CEREBRAL INFARCTION, UNSPECIFIED (5) Cachexia associated with AIDS Code(s): B20 - HUMAN IMMUNODEFICIENCY VIRUS [HIV] DISEASE; R64 - CACHEXIA (6) Lives in homeless residential Code(s): Z59.0 - HOMELESSNESS (7) Nicotine dependence Code(s): F17.200 - NICOTINE DEPENDENCE, UNSPECIFIED, UNCOMPLICATED (8) Cavitary pneumonia Code(s): J18.9 - PNEUMONIA, UNSPECIFIED ORGANISM; J98.4 - OTHER DISORDERS OF LUNG
--- NOTE | 2019-11-09 21:36 | PN ---
Progress Note, Physician History of Present Illness: AWAKE IN BED NO C/O CHEST PAIN/ DYSPNEA/ COUGH NO C/O SPUTUM/ HEMOPTYSIS NO C/O FEVER/ CHILLS LOW GRADE TEMP CT SHOWS DENSE RUL CONSOLIDATION WITH CAVITATION AFB PENDING CD4 6 - Current Medication List Current Medications: Active Medications Acetaminophen (Tylenol -) 650 mg PO Q6H PRN PRN Reason: PAIN LEVEL 4 - 6 Last Admin: 11/08/19 06:08 Dose: 650 mg Documented by: Azithromycin (Zithromax) 500 mg PO DAILY [facility] Stop: 11/10/19 10:01 Last Admin: 11/09/19 10:59 Dose: 500 mg Documented by: Enoxaparin Sodium (Lovenox -) 40 mg SQ DAILY [facility] Last Admin: 11/09/19 10:59 Dose: 40 mg Documented by: Ceftriaxone Sodium 1 gm/ (Dextrose) 50 mls @ 100 mls/hr IVPB DAILY [facility] Last Admin: 11/09/19 10:59 Dose: 100 mls/hr Documented by: Nystatin (Nystatin Oral Suspension -) 500,000 units PO Q6HPO [facility] Last Admin: 11/09/19 17:14 Dose: 500,000 units Documented by: Trimethoprim/Sulfamethoxazole (Bactrim Ds -) 1 each PO DAILY [facility] Last Admin: 11/09/19 10:59 Dose: 1 each Documented by: - Objective Vital Signs: Vital Signs Temperature 98.0 F 11/09/19 18:00 Pulse Rate 89 11/09/19 18:00 Respiratory Rate 18 11/09/19 18:00 Blood Pressure 103/52 L 11/09/19 18:00 O2 Sat by Pulse Oximetry (%) 96 11/09/19 18:00 Constitutional: Yes: No Distress Eyes: Yes: Conjunctiva Clear Cardiovascular: Yes: Regular Rate and Rhythm, S1, S2 Respiratory: Yes: CTA Bilaterally Gastrointestinal: Yes: Normal Bowel Sounds, Soft Edema: No Labs: CBC, BMP 11/09/19 05:25 11/09/19 05:25 INR, PTT INR 1.77 (0.83-1.09) H 11/06/19 09:15 Assessment/Plan CAVITARY PNEUMONIA IN HOMELESS PT WITH HIV ? AFB DZ ? NECROTIZING PNEUMONIA ? CAVITARY CARCINOMA ? ASPERGILLUS HIV/AIDS AWAIT SPUTUM AFB, QUANTIFERON SPUTUM C/S CONTINUE CEFTRIAXONE/ ZITHROMAX
[2019-11-10] MEDS: NYSTATIN 500,000 UNITS/5 ML SUSPENSION PO SCH ×4 (06:24→23:41)
--- NOTE | 2019-11-10 07:25 | CONS ---
DATE OF CONSULTATION: 11/09/2019 PULMONARY CONSULTATION REFERRING PHYSICIAN: Randy Madrigal MD HISTORY OF PRESENT ILLNESS: The patient is a 58-year-old male with past medical history of HIV currently not on HAART therapy, polysubstance abuse, snorts cocaine and heroin, no IVDA, history of tobacco use, half pack per week since 2014, positive PPD treated with INH the last 6 months, admitted to [facility] secondary to fever and cough. Patient states that the cough and fever were over the past 3 days. He denies any chest pain, denies any shortness of breath. Apparently, he has been at [facility] for approximately 12 days for detoxification. He states that he is homeless for the past 2 years, unable to take his HAART because of that. He states again he was treated for latent TB in the past for 6 months. He denies history of recent travel. There is no history of occupational exposure to chemicals or fumes. On admission, the patient had a chest x-ray performed, subsequently had a CAT scan of the chest performed which revealed large right upper lobe dense consolidation with cavitations and scattered bilateral infiltrates throughout both lungs. He was evaluated by infectious disease and placed on broad-spectrum antibiotics, COVID and AFB are pending. Patient states he has had a 50-pound weight loss over the past few months. Denies any night sweats. PAST MEDICAL HISTORY: Again includes HIV currently not on HAART, polysubstance abuse, history of tobacco use and latent TB. CURRENT MEDICATIONS: Include Tylenol, Zithromax, Ceftriaxone, Bactrim, Lovenox and Nystatin. PHYSICAL EXAMINATION: General: The patient is a cachectic male, awake, alert, comfortable, in no acute distress. Vital Signs: He is afebrile, blood pressure 100/62, respiratory rate 17, O2 saturation 94% on room air. HEENT: Normocephalic, atraumatic. Neck: Supple. Heart: Regular S1, S2. Chest: A few scattered rhonchi. Abdomen: Soft, bowel sounds positive. Extremities: No cyanosis, edema. LABORATORY: WBC is 7.3, hemoglobin is 11.5, hematocrit 35.6, platelet count of 408,000. BUN is 16, creatinine 0.9. CD4 count is 0.9, absolute CD4 helper is 6, CD4/CD8 ratio is 0.01. Sodium is 133, potassium 5.2. Chest CT as noted earlier. IMPRESSION: 1. Cavitary pneumonia rule out tuberculosis, patient with history of positive PPD in the past, history of latent tuberculosis in the past, rule out possible bacterial. 2. Human immunodeficiency virus/acquired immunodeficiency syndrome, currently not on highly active antiretroviral therapy. 3. History of latent tuberculosis, treated with INH for 6 months. 4. Substance abuse. 5. Tobacco abuse. PLAN: Supplemental O2. Inhaled bronchodilators. Antibiotics as per infectious disease. Obtain cultures. Echo if culture is positive for staphylococcus. COVID PCR negative. SHIRIN LOVE M.D. GLENNA/[id number]
[2019-11-10 07:50] LABS: BASO % 0.9 % (0-2.0); EOS % 1.6 % (0-4.5); HEMATOCRIT 36.7 % (35.4-49); HEMOGLOBIN 11.9 GM/dL (11.7-16.9); LYMPH % 9.7 % (8-40); MCH 27.4 pg (25.7-33.7); MCHC 32.5 g/dl (32.0-35.9); MEAN CELL VOLUME 84.2 fl (80-96); MEAN PLT VOLUME 7.2 fl (7.5-11.1); NEUT % 81.8 % (42.8-82.8); PLATELET COUNT 428 K/MM3 (134-434); RBC 4.36 M/mm3 (4.00-5.60); RDW 14.9 % (11.9-15.9); WHITE BLOOD COUNT 6.5 K/mm3 (4.0-10.0)
[2019-11-10 08:11] LABS: ALBUMIN 1.6 g/dl (3.4-5.0); CALCIUM 8.3 mg/dL (8.5-10.1); MAGNESIUM 2.3 mg/dL (1.8-2.4); PHOSPHOROUS 3.4 mg/dL (2.5-4.9); POTASSIUM 5.6 mmol/L (3.5-5.1)
[2019-11-10 08:13] LABS: BILIRUBIN,TOTAL 1.3 mg/dL (0.2-1); BLOOD UREA NITROGEN 23.2 mg/dL (7-18); TOT PROT 9.2 g/dl (6.4-8.2)
--- NOTE | 2019-11-10 10:04 | PN ---
Progress Note, Physician History of Present Illness: PULMONARY ALERT,COMFORTABLE,-SOB,+ COUGH - Current Medication List Current Medications: Active Medications Acetaminophen (Tylenol -) 650 mg PO Q6H PRN PRN Reason: PAIN LEVEL 4 - 6 Last Admin: 11/08/19 06:08 Dose: 650 mg Documented by: Enoxaparin Sodium (Lovenox -) 40 mg SQ DAILY [facility] Last Admin: 11/09/19 10:59 Dose: 40 mg Documented by: Ceftriaxone Sodium 1 gm/ (Dextrose) 50 mls @ 100 mls/hr IVPB DAILY [facility] Last Admin: 11/09/19 10:59 Dose: 100 mls/hr Documented by: Nystatin (Nystatin Oral Suspension -) 500,000 units PO Q6HPO [facility] Last Admin: 11/10/19 06:24 Dose: 500,000 units Documented by: Trimethoprim/Sulfamethoxazole (Bactrim Ds -) 1 each PO DAILY [facility] Last Admin: 11/09/19 10:59 Dose: 1 each Documented by: - Objective Vital Signs: Vital Signs Temperature 98.3 F 11/10/19 06:00 Pulse Rate 85 11/10/19 06:00 Respiratory Rate 18 11/10/19 06:00 Blood Pressure 100/63 11/10/19 06:00 O2 Sat by Pulse Oximetry (%) 96 11/10/19 06:00 Constitutional: Yes: Calm, Cachectic Eyes: Yes: WNL HENT: Yes: WNL Neck: Yes: WNL Cardiovascular: Yes: Regular Rate and Rhythm, S1, S2 Respiratory: Yes: Diminished Gastrointestinal: Yes: Normal Bowel Sounds, Soft Extremities: Yes: WNL Edema: No Labs: CBC, BMP 11/10/19 06:17 11/10/19 06:17 INR, PTT INR 1.77 (0.83-1.09) H 11/06/19 09:15 Problem List - Problems (1) Pneumonia Code(s): J18.9 - PNEUMONIA, UNSPECIFIED ORGANISM Qualifiers: Pneumonia type: due to unspecified organism Laterality: right Lung location: upper lobe of lung Qualified Code(s): J18.9 - Pneumonia, unspecified organism (2) HIV (human immunodeficiency virus infection) Code(s): B20 - HUMAN IMMUNODEFICIENCY VIRUS [HIV] DISEASE Qualifiers: HIV symptom status: unspecified Qualified Code(s): B20 - Human immunode ficiency virus [HIV] disease (3) Opioid dependence with withdrawal Code(s): F11.23 - OPIOID DEPENDENCE WITH WITHDRAWAL (4) CVA (cerebral vascular accident) Code(s): I63.9 - CEREBRAL INFARCTION, UNSPECIFIED (5) Cachexia associated with AIDS Code(s): B20 - HUMAN IMMUNODEFICIENCY VIRUS [HIV] DISEASE; R64 - CACHEXIA (6) Lives in homeless group home Code(s): Z59.0 - HOMELESSNESS (7) Nicotine dependence Code(s): F17.200 - NICOTINE DEPENDENCE, UNSPECIFIED, UNCOMPLICATED (8) Cavitary pneumonia Code(s): J18.9 - PNEUMONIA, UNSPECIFIED ORGANISM; J98.4 - OTHER DISORDERS OF LUNG Assessment/Plan IMP CAVITARY PNEUMONIA ? TB,BACTERIAL HIV/AIDS NOT ON HAART H/O LATENT TB TREATED WITH INH X 6 MONTHS SUBSTANCE ABUSE TOBACCO ABUSE PLAN SUPPLEMENTAL O2 INHALED BRONCHODILATORS ABX PER ID SPUTUM FOR AFB,CULTURES, COVID PCR NEGATIVE F/U CHEST X-RAYS DR LOVE Problem List - Problems (1) Pneumonia Code(s): J18.9 - PNEUMONIA, UNSPECIFIED ORGANISM Qualifiers: Pneumonia type: due to unspecified organism Laterality: right Lung location: upper lobe of lung Qualified Code(s): J18.9 - Pneumonia, unspecified organism (2) HIV (human immunodeficiency virus infection) Code(s): B20 - HUMAN IMMUNODEFICIENCY VIRUS [HIV] DISEASE Qualifiers: HIV symptom status: unspecified Qualified Code(s): B20 - Human immunodeficiency virus [HIV] disease (3) Opioid dependence with withdrawal Code(s): F11.23 - OPIOID DEPENDENCE WITH WITHDRAWAL (4) CVA (cerebral vascular accident) Code(s): I63.9 - CEREBRAL INFARCTION, UNSPECIFIED (5) Cachexia associated with AIDS Code(s): B20 - HUMAN IMMUNODEFICIENCY VIRUS [HIV] DISEASE; R64 - CACHEXIA (6) Lives in homeless group home Code(s): Z59.0 - HOMELESSNESS (7) Nicotine dependence Code(s): F17.200 - NICOTINE DEPENDENCE, UNSPECIFIED, UNCOMPLICATED (8) Cavitary pneumonia Code(s): J18.9 - PNEUMONIA, UNSPECIFIED ORGANISM; J98.4 - OTHER DISORDERS OF LUNG
[2019-11-10] MEDS ORDERED: DEXTROSE 5%-WATER - 50 ML IVPB ONE (10:47)
[2019-11-10] MEDS ORDERED: cefTRIAXone SODIUM 1 GM VIAL ONE (10:47)
[2019-11-10] MEDS ORDERED: PT OWN MED DRAWER 7, Y5N ONE (10:48)
[2019-11-10] MEDS: ENOXAPARIN NA (PORCINE) 40 MG/0.4 ML DISP.SYRIN SQ SCH (10:51)
[2019-11-10] MEDS: AZITHROMYCIN 500 MG TABLET PO SCH (10:52)
[2019-11-10] MEDS: SULFAMETHOXAZOLE/TRIMETHOPRIM 800MG/160MG D.S. TABLET PO SCH (10:52)
[2019-11-10] MEDS: CEFTRIAXONE 1 GM in DEXTROSE 5%-WATER - 50 ML IVPB SCH (10:52)
[2019-11-10 10:53] LABS: ANISOCYTOSIS 0; MACROCYTOSIS 0; PLATELET ESTIMATE NORMAL
--- NOTE | 2019-11-10 13:03 | PN ---
Teaching Attending Note Name of Resident: Anne-Marie Castañeda ATTENDING PHYSICIAN STATEMENT I saw and evaluated the patient. I reviewed the resident's note and discussed the case with the resident. I agree with the resident's findings and plan as documented. SUBJECTIVE: Seen and examined at bedside. Sputum cx show pansensitive klebsiella. Awaiting additional serologies OBJECTIVE Last Vital Signs Temp Pulse Resp BP Pulse Ox 98.3 F 85 18 100/63 96 11/10/19 06:00 11/10/19 06:00 11/10/19 06:00 11/10/19 06:00 11/10/19 06:00 PE: Per resident note Labs/Imaging: reviewed ASSESSMENT/PLAN 4-year-old male past medical history of HIV for 30+ years, not currently on HAART, last CD4 count unknown, polysubstance abuse, history of TB, presents from [facility] for fever and cough. #Cavitary Pneumonia in the setting of untreated HIV, history of TB -sputum cx show pansensitive klebsilla ID on board: Appreciate recommendations Pending QuantiFERON Patient requires rule out TB: AFB x3 Follow-up sputum cultures, urine Legionella Continue ceftriaxone azithromycin #HIV/AIDS CD4 count of 6. Patient reports was diagnosed with HIV in the late 80s, has been on HIV meds in the past, off for the last year -currently on bactrim and azithromycin -further recs per ID Discussed with ID: We will not restart on HAART now but will refer to the [facility] on discharge
--- NOTE | 2019-11-10 13:17 | PN ---
Physical Exam: SUBJECTIVE: Patient seen and examined at bedside no acute events overnight patient states that he is feeling better and that his breathing is improving though he is still having a cough- yesterday he states that he tried to get up out of bed but he felt too dizzy OBJECTIVE: Vital Signs Period Temp Pulse Resp BP Sys/Carrera Pulse Ox Last 24 Hr 98.0 F-98.3 F 85-98 17-18 100-106/52-74 94-97 GENERAL: The patient is awake, alert, and fully oriented, in no acute distress. EYES: PEERLA: EOMI no scleral icterus . NECK: no JVD; no lymphadenopathy LUNGS:slight rhonchi at the RUL HEART: Regular rate and rhythm, S1, S2 without murmur, rub or gallop. ABDOMEN: Soft, NT ND +BS in all 4 quadrants EXTREMITIES: 2+ pulses, warm, well-perfused, no edema. PSYCH: Normal mood, normal affect. SKIN: Warm, dry, normal turgor, no rashes or lesions noted Laboratory Results - last 24 hr 11/07/19 11/10/19 11/10/19 07:40 06:17 06:17 WBC 6.5 RBC 4.36 Hgb 11.9 Hct 36.7 MCV 84.2 MCH 27.4 MCHC 32.5 RDW 14.9 Plt Count 428 MPV 7.2 L Absolute Neuts (auto) 5.3 Neutrophils % 81.8 Neutrophils % (Manual) 89.9 H Band Neutrophils % 1.0 Lymphocytes % 9.7 Lymphocytes % (Manual) 7.1 L D Monocytes % 6.0 Monocytes % (Manual) 1 L Eosinophils % 1.6 Eosinophils % (Manual) 0.0 D Basophils % 0.9 Basophils % (Manual) 0.0 Myelocytes % (Man) 0 D Promyelocytes % (Man) 0 Blast Cells % (Manual) 0 Nucleated RBC % 0 Metamyelocytes 1 D Hypochromia 0 Platelet Estimate Normal Polychromasia 0 Anisocytosis 0 Microcytosis 0 Macrocytosis 0 Sodium 129 L Potassium 5.6 H Chloride 98 Carbon Dioxide 25 Anion Gap 6 L BUN 23.2 H Creatinine 1.0 Est GFR (CKD-EPI)AfAm 94.39 Est GFR (CKD-EPI)NonAf 81.44 Random Glucose 73 L Calcium 8.3 L Phosphorus 3.4 Magnesium 2.3 Total Bilirubin 1.3 H AST 23 ALT 10 L Alkaline Phosphatase 102 Total Protein 9.2 H Albumin 1.6 L HIV-1 RNA (PCR) 04174 HIV-1 RNA (PCR) log10 4.913 Active Medications Generic Name Dose Route Start Last Admin Trade Name Freq PRN Reason Stop Dose Admin Acetaminophen 650 mg 11/07/19 12:55 11/08/19 06:08 Tylenol - PO 650 mg Q6H PRN Administration PAIN LEVEL 4 - 6 Enoxaparin Sodium 40 mg 11/07/19 10:00 11/10/19 10:51 Lovenox - SQ 40 mg DAILY RONIT Administration Ceftriaxone Sodium 1 gm/ 50 mls @ 100 mls/hr 11/07/19 10:00 11/10/19 10:52 Dextrose IVPB 100 mls/hr DAILY RONIT Administration Nystatin 500,000 units 11/06/19 18:00 11/10/19 06:24 Nystatin Oral Suspension - PO 500,000 units Q6HPO RONIT Administration Trimethoprim/Sulfamethoxazole 1 each 11/07/19 10:00 11/10/19 10:52 Bactrim Ds - PO 1 each DAILY RONIT Administration ASSESSMENT/PLAN: 58M w/ PMHx. of HIV for (ddx. in , has been off HAART for last year, last CD4 count unknown), polysubstance abuse, Hx. of TB, presents from [facility] for fever and cough. #Pneumonia w/ cavitary lesion; in the setting of untreated HIV, history of TB. Rule out TB vs. Aspergillus vs. a necrotic PNA vs. atypical PNA given CT findings ID on board: Appreciate recommendations CT chest +RUL consolidation with cavitation, scattered infiltrates and bibasilar atelectasis/consolidations, moderate COPD QuantiFERON pending, HIV-1 RNA PCR pending -Sputum growing Klebsiella PNA Patient requires rule out TB: AFB x3 SpCx +LFGNB, Urine Ag +Strep pneumo/neg for Leg Continue Ceftriaxone 1gm QD (started 11/06), and Azithromycin 500 PO QD -Pulm consulted #HIV Patient reports was diagnosed with HIV in the late 80s, has been on HIV meds in the past, off for the last year CD4 count 6 Discussed with ID: We will not restart on HAART now but will refer to the [facility] on discharge, this will prevent reconstitution syndrome while fighting off pneumonia -AFB pending; will need 3 negative tests -c/w Nystatin for oral thrush -c/w Bactrim 1 mg PO QD #Malnutrition; BMI 16 -add Magic Cup/Ensure #FEN -PO hydration -monitor electrolytes and replete as needed -Regular Diet + Magic Cup/Ensure per dietary recs, BMI:16, will require supplemenatation #DVT PPx DVT: Lovenox 40 Dispo -observe in isolation until 3 negative AFBs. Pt will require hospitalization for at least 7-10 days per [place] Public guidelines, d/w ID Problem List - Problems (1) Cavitary pneumonia Code(s): J18.9 - PNEUMONIA, UNSPECIFIED ORGANISM; J98.4 - OTHER DISORDERS OF LUNG (2) Pneumonia Code(s): J18.9 - PNEUMONIA, UNSPECIFIED ORGANISM Qualifiers: Pneumonia type: due to unspecified organism Laterality: right Lung location: upper lobe of lung Qualified Code(s): J18.9 - Pneumonia, unspecified organism (3) HIV (human immunodeficiency virus infection) Code(s): B20 - HUMAN IMMUNODEFICIENCY VIRUS [HIV] DISEASE Qualifiers: HIV symptom status: unspecified Qualified Code(s): B20 - Human immunodeficiency virus [HIV] disease (4) Opioid dependence with withdrawal Code(s): F11.23 - OPIOID DEPENDENCE WITH WITHDRAWAL Visit type - Emergency Visit Emergency Visit: Yes ED Registration Date: 11/06/19 Care time: The patient presented to the Emergency Department on the above date and was hospitalized for further evaluation of their emergent condition. - New Patient This patient is new to me today: Yes Date on this admission: 11/10/19 - Critical Care Critical Care patient: No ATTENDING PHYSICIAN STATEMENT I saw and evaluated the patient. I reviewed the resident's note and discussed the case with the resident. I agree with the resident's findings and plan as documented. SUBJECTIVE: OBJECTIVE: ASSESSMENT AND PLAN:
[2019-11-10] MEDS ORDERED: SODIUM CHLORIDE 1,000 ML IV SCH (16:30)
[2019-11-10 18:24] LABS: BLOOD UREA NITROGEN 29.1 mg/dL (7-18); CALCIUM 8.7 mg/dL (8.5-10.1); CREATININE 1.2 mg/dL (0.55-1.3); POTASSIUM 4.4 mmol/L (3.5-5.1)
[2019-11-11] MEDS: NYSTATIN 500,000 UNITS/5 ML SUSPENSION PO SCH ×3 (05:34→17:04)
[2019-11-11 07:54] LABS: BASO % 1.4 % (0-2.0); EOS % 2.4 % (0-4.5); HEMATOCRIT 37.2 % (35.4-49); HEMOGLOBIN 11.8 GM/dL (11.7-16.9); LYMPH % 12.8 % (8-40); MCHC 31.9 g/dl (32.0-35.9); MEAN CELL VOLUME 84.7 fl (80-96); MEAN PLT VOLUME 7.3 fl (7.5-11.1); MONO % 8.6 % (3.8-10.2); NEUT % 74.8 % (42.8-82.8); PLATELET COUNT 372 K/MM3 (134-434); RBC 4.39 M/mm3 (4.00-5.60); RDW 15.1 % (11.9-15.9); WHITE BLOOD COUNT 5.8 K/mm3 (4.0-10.0)
[2019-11-11 08:38] LABS: POTASSIUM 5.7 mmol/L (3.5-5.1)
[2019-11-11] MEDS ORDERED: INSULIN REGULAR HUMAN 100 UNITS/ML *VIAL IVPUSH ONE ×2 (09:06→10:00)
[2019-11-11] MEDS ORDERED: DEXTROSE 50%-WATER - 25 GM/50 ML VIAL IVPUSH ONE (09:06)
[2019-11-11 09:22] LABS: ALBUMIN 1.7 g/dl (3.4-5.0); BILIRUBIN,TOTAL 0.6 mg/dL (0.2-1); BLOOD UREA NITROGEN 25.6 mg/dL (7-18); CALCIUM 8.6 mg/dL (8.5-10.1); CREATININE 1.1 mg/dL (0.55-1.3); MAGNESIUM 2.1 mg/dL (1.8-2.4); PHOSPHOROUS 3.1 mg/dL (2.5-4.9); TOT PROT 9.4 g/dl (6.4-8.2)
--- NOTE | 2019-11-11 09:37 | PN ---
Physical Exam: SUBJECTIVE: Patient seen and examined at bedside- no acute events overnight- patient states he didnt really sleep well; he states his breathing is better though he still feels slightly weak; he denies any CP/SOB/N/V OBJECTIVE: Vital Signs Period Temp Pulse Resp BP Sys/Carrera Pulse Ox Last 24 Hr 98.5 F-99.3 F 87-100 18-18 93-96/61-64 94-96 GENERAL: The patient is awake, alert, and fully oriented, in no acute distress. EYES: PEERLA: EOMI no scleral icterus NECK: no JVD; no lymphadenopathy LUNGS: CTA B/L no rales, rhonchi or wheezing HEART: Regular rate and rhythm, S1, S2 without murmur, rub or gallop. ABDOMEN: Soft,NT ND +BS in all 4 quadrants. EXTREMITIES: 2+ pulses, warm, well-perfused, no edema. PSYCH: Normal mood, normal affect. SKIN: Warm, dry, normal turgor, no rashes or lesions noted Laboratory Results - last 24 hr 11/10/19 11/10/19 11/11/19 06:17 17:35 06:12 WBC 5.8 RBC 4.39 Hgb 11.8 Hct 37.2 MCV 84.7 MCH 27.0 MCHC 31.9 L RDW 15.1 Plt Count 372 MPV 7.3 L Absolute Neuts (auto) 4.4 Neutrophils % 74.8 Neutrophils % (Manual) 89.9 H Band Neutrophils % 1.0 Lymphocytes % 12.8 D Lymphocytes % (Manual) 7.1 L D Monocytes % 8.6 Monocytes % (Manual) 1 L Eosinophils % 2.4 Eosinophils % (Manual) 0.0 D Basophils % 1.4 Basophils % (Manual) 0.0 Myelocytes % (Man) 0 D Promyelocytes % (Man) 0 Blast Cells % (Manual) 0 Nucleated RBC % 0 0 Metamyelocytes 1 D Hypochromia 0 Platelet Estimate Normal Polychromasia 0 Anisocytosis 0 Microcytosis 0 Macrocytosis 0 Sodium 130 L Potassium 4.4 Chloride 98 Carbon Dioxide 26 Anion Gap 6 L BUN 29.1 H Creatinine 1.2 Est GFR (CKD-EPI)AfAm 75.72 Est GFR (CKD-EPI)NonAf 65.33 Random Glucose 92 Calcium 8.7 Phosphorus Magnesium Total Bilirubin AST ALT Alkaline Phosphatase Total Protein Albumin 11/11/19 06:12 WBC RBC Hgb Hct MCV MCH MCHC RDW Plt Count MPV Absolute Neuts (auto) Neutrophils % Neutrophils % (Manual) Band Neutrophils % Lymphocytes % Lymphocytes % (Manual) Monocytes % Monocytes % (Manual) Eosinophils % Eosinophils % (Manual) Basophils % Basophils % (Manual) Myelocytes % (Man) Promyelocytes % (Man) Blast Cells % (Manual) Nucleated RBC % Metamyelocytes Hypochromia Platelet Estimate Polychromasia Anisocytosis Microcytosis Macrocytosis Sodium 129 L Potassium 5.7 H Chloride 98 Carbon Dioxide 26 Anion Gap 5 L BUN 25.6 H Creatinine 1.1 Est GFR (CKD-EPI)AfAm 84.12 Est GFR (CKD-EPI)NonAf 72.58 Random Glucose 84 Calcium 8.6 Phosphorus 3.1 Magnesium 2.1 Total Bilirubin 0.6 AST 21 ALT 10 L Alkaline Phosphatase 97 Total Protein 9.4 H Albumin 1.7 L Active Medications Generic Name Dose Route Start Last Admin Trade Name Freq PRN Reason Stop Dose Admin Acetaminophen 650 mg 11/07/19 12:55 11/08/19 06:08 Tylenol - PO 650 mg Q6H PRN Administration PAIN LEVEL 4 - 6 Calcium Gluconate 1,000 mg 11/11/19 09:06 Calcium Gluconate 10% - IVPUSH 11/11/19 09:07 ONCE ONE Enoxaparin Sodium 40 mg 11/07/19 10:00 11/10/19 10:51 Lovenox - SQ 40 mg DAILY RONIT Administration Ceftriaxone Sodium 1 gm/ 50 mls @ 100 mls/hr 11/07/19 10:00 11/10/19 10:52 Dextrose IVPB 100 mls/hr DAILY RONIT Administration Sodium Chloride 1,000 mls @ 50 mls/hr 11/10/19 16:30 11/10/19 18:23 Normal Saline - IV 11/11/19 12:29 50 mls/hr ASDIR RONIT Administration Insulin Human Regular 6 units 11/11/19 09:06 Novolin R Vial *For Ivpush Or Iv Drip Only* IVPUSH 11/11/19 09:07 ONCE ONE Nystatin 500,000 units 11/06/19 18:00 11/11/19 05:34 Nystatin Oral Suspension - PO 500,000 units Q6HPO RONIT Administration Trimethoprim/Sulfamethoxazole 1 each 11/07/19 10:00 11/10/19 10:52 Bactrim Ds - PO 1 each DAILY RONIT Administration ASSESSMENT/PLAN: 1M w/ PMHx. of HIV for (ddx. in , has been off HAART for last year, last CD4 count unknown), polysubstance abuse, Hx. of TB, presents from [facility] for fever and cough. #Pneumonia w/ cavitary lesion; in the setting of untreated HIV, history of TB. Rule out TB vs. Aspergillus vs. a necrotic PNA vs. atypical PNA given CT findings ID on board: Appreciate recommendations CT chest +RUL consolidation with cavitation, scattered infiltrates and bibasilar atelectasis/consolidations, moderate COPD QuantiFERON negative, HIV-1 RNA PCR pending -Sputum growing Klebsiella PNA Patient requires rule out TB: AFB x3 SpCx +LFGNB, Urine Ag +Strep pneumo/neg for Leg Continue Ceftriaxone 1gm QD (started 11/06), and Azithromycin 500 PO QD -Pulm consulted -will repeat CXR in AM #Hyperkalemia patient has been persistently hyperkalemic -will medically treat and repeat BMP in the afternoon #HIV Patient reports was diagnosed with HIV in the late 80s, has been on HIV meds in the past, off for the last year CD4 count 6 -AFB pending; will need 3 negative tests -c/w Nystatin for oral thrush -c/w Bactrim 1 mg PO QD #Malnutrition; BMI 16 -add Magic Cup/Ensure #FEN -PO hydration -monitor electrolytes and replete as needed -Regular Diet + Magic Cup/Ensure per dietary recs, BMI:16, will require supplemenatation #DVT PPx DVT: Lovenox 40 Problem List - Problems (1) Cavitary pneumonia Code(s): J18.9 - PNEUMONIA, UNSPECIFIED ORGANISM; J98.4 - OTHER DISORDERS OF LUNG (2) Pneumonia Code(s): J18.9 - PNEUMONIA, UNSPECIFIED ORGANISM Qualifiers: Pneumonia type: due to unspecified organism Laterality: right Lung location: upper lobe of lung Qualified Code(s): J18.9 - Pneumonia, unspecified organism (3) HIV (human immunodeficiency virus infection) Code(s): B20 - HUMAN IMMUNODEFICIENCY VIRUS [HIV] DISEASE Qualifiers: HIV symptom status: unspecified Qualified Code(s): B20 - Human immunodeficiency virus [HIV] disease (4) Opioid dependence with withdrawal Code(s): F11.23 - OPIOID DEPENDENCE WITH WITHDRAWAL Visit type - Emergency Visit Emergency Visit: Yes ED Registration Date: 11/06/19 Care time: The patient presented to the Emergency Department on the above date and was hospitalized for further evaluation of their emergent condition. - New Patient This patient is new to me today: No - Critical Care Critical Care patient: No ATTENDING PHYSICIAN STATEMENT I saw and evaluated the patient. I reviewed the resident's note and discussed the case with the resident. I agree with the resident's findings and plan as documented. SUBJECTIVE: OBJECTIVE: ASSESSMENT AND PLAN:
[2019-11-11] MEDS ORDERED: CALCIUM GLUCONATE 10% - 1,000 MG/10 ML VIAL IVPB ONE (09:45)
[2019-11-11] MEDS ORDERED: DEXTROSE 50%-WATER - 25 GM/50 ML VIAL ONE (10:28)
[2019-11-11] MEDS: ENOXAPARIN NA (PORCINE) 40 MG/0.4 ML DISP.SYRIN SQ SCH (10:41)
[2019-11-11] MEDS: SULFAMETHOXAZOLE/TRIMETHOPRIM 800MG/160MG D.S. TABLET PO SCH (10:41)
--- NOTE | 2019-11-11 11:13 | PN ---
Teaching Attending Note Name of Resident: Anne-Marie Castañeda ATTENDING PHYSICIAN STATEMENT I saw and evaluated the patient. I reviewed the resident's note and discussed the case with the resident. I agree with the resident's findings and plan as documented. SUBJECTIVE: OBJECTIVE: ASSESSMENT AND PLAN: 58 year old Male with a PMHx. notable for HIV for (ddx. in , has been off HAART for last year, last CD4 count unknown), polysubstance abuse, History of TB, who presents from [facility] for PNA rule out TB #Pneumonia with cavitary lesion; in the setting of untreated HIV, history of TB. Rule out TB vs given CT findings ID on board: Appreciate recommendations Patient requires rule out TB: AFB x3 Continue with antibiotics #Hyperkalemia patient has been persistently hyperkalemic -will medically treat #HIV Patient reports was diagnosed with HIV in the late 80s, has been on HIV meds in the past, off for the last year CD4 count 6 -AFB pending; will need 3 negative tests -c/w Nystatin for oral thrush -c/w Bactrim 1 mg PO QD #Malnutrition; Nutrition follow-up #FEN -PO hydration -monitor electrolytes and replete as needed -Regular Diet + Magic Cup/Ensure per dietary recs, BMI:16, will require sup plemenatation #DVT Prophylaxsis DVT: SQ Lovenox
[2019-11-11] MEDS ORDERED: cefTRIAXone SODIUM 1 GM VIAL ONE (11:33)
[2019-11-11] MEDS ORDERED: DEXTROSE 5%-WATER - 50 ML IVPB ONE (11:33)
[2019-11-11] MEDS: CEFTRIAXONE 1 GM in DEXTROSE 5%-WATER - 50 ML IVPB SCH (11:43)
[2019-11-11] MEDS: ACETAMINOPHEN 325 MG TABLET (FP) PO PRN (11:43)
[2019-11-11 12:06] LABS: ANISOCYTOSIS 1+; MACROCYTOSIS 0; PLATELET ESTIMATE NORMAL
--- NOTE | 2019-11-11 13:13 | PN ---
Progress Note (short form) - Note Progress Note: Breathing is improving. Generalized fatigue. Insomnia. No acute events overnight. Intake & Output 11/08/19 11/09/19 11/10/19 11/11/19 23:59 23:59 23:59 23:59 Intake Total 1330 1410 1610 1210 Output Total 1400 1900 1350 825 Balance -70 -490 260 385 Weight 118 lb Last Vital Signs Temp Pulse Resp BP Pulse Ox 98.9 F 90 18 103/66 95 11/11/19 09:45 11/11/19 09:45 11/11/19 09:45 11/11/19 09:45 11/11/19 09:45 Active Medications Acetaminophen (Tylenol -) 650 mg PO Q6H PRN PRN Reason: PAIN LEVEL 4 - 6 Last Admin: 11/11/19 11:43 Dose: 650 mg Documented by: Enoxaparin Sodium (Lovenox -) 40 mg SQ DAILY [facility] Last Admin: 11/11/19 10:41 Dose: 40 mg Documented by: Ceftriaxone Sodium 1 gm/ (Dextrose) 50 mls @ 100 mls/hr IVPB DAILY [facility] Last Admin: 11/11/19 11:43 Dose: 100 mls/hr Documented by: Nystatin (Nystatin Oral Suspension -) 500,000 units PO Q6HPO [facility] Last Admin: 11/11/19 11:45 Dose: 500,000 units Documented by: Trimethoprim/Sulfamethoxazole (Bactrim Ds -) 1 each PO DAILY [facility] Last Admin: 11/11/19 10:41 Dose: 1 each Documented by: Constitutional: Yes: NAD, Cachectic Eyes: Yes: WNL HENT: Yes: WNL Neck: Yes: WNL Cardiovascular: Yes: Regular Rate and Rhythm, S1, S2 Respiratory: Yes: Diminished, few scattered rhonchi, no wheeze Gastrointestinal: Yes: Normal Bowel Sounds, Soft Extremities: Yes: WNL Edema: No Labs: Laboratory Results - last 24 hr 11/08/19 11/10/19 11/11/19 13:30 17:35 06:12 WBC 5.8 RBC 4.39 Hgb 11.8 Hct 37.2 MCV 84.7 MCH 27.0 MCHC 31.9 L RDW 15.1 Plt Count 372 MPV 7.3 L Absolute Neuts (auto) 4.4 Neutrophils % 74.8 Neutrophils % (Manual) 84.9 H Band Neutrophils % 0.0 Lymphocytes % 12.8 D Lymphocytes % (Manual) 9.7 D Monocytes % 8.6 Monocytes % (Manual) 2 L D Eosinophils % 2.4 Eosinophils % (Manual) 2.1 D Basophils % 1.4 Basophils % (Manual) 1.1 D Myelocytes % (Man) 0 Promyelocytes % (Man) 0 Blast Cells % (Manual) 0 Nucleated RBC % 0 Metamyelocytes 0 D Hypochromia 0 Platelet Estimate Normal Polychromasia 0 Poikilocytosis 0 Anisocytosis 1+ Microcytosis 1+ Macrocytosis 0 Sodium 130 L Potassium 4.4 Chloride 98 Carbon Dioxide 26 Anion Gap 6 L BUN 29.1 H Creatinine 1.2 Est GFR (CKD-EPI)AfAm 75.72 Est GFR (CKD-EPI)NonAf 65.33 Random Glucose 92 Calcium 8.7 Phosphorus Magnesium Total Bilirubin AST ALT Alkaline Phosphatase Total Protein Albumin TB Test (QFT) Nil 0.02 TB Test (QFT) Mitogen 3.36 TB Test (QFT) Ag 1 0.02 TB Test (QFT) Ag 2 0.02 TB Test (QFT) Negative TB Positive Criteria 11/11/19 06:12 WBC RBC Hgb Hct MCV MCH MCHC RDW Plt Count MPV Absolute Neuts (auto) Neutrophils % Neutrophils % (Manual) Band Neutrophils % Lymphocytes % Lymphocytes % (Manual) Monocytes % Monocytes % (Manual) Eosinophils % Eosinophils % (Manual) Basophils % Basophils % (Manual) Myelocytes % (Man) Promyelocytes % (Man) Blast Cells % (Manual) Nucleated RBC % Metamyelocytes Hypochromia Platelet Estimate Polychromasia Poikilocytosis Anisocytosis Microcytosis Macrocytosis Sodium 129 L Potassium 5.7 H Chloride 98 Carbon Dioxide 26 Anion Gap 5 L BUN 25.6 H Creatinine 1.1 Est GFR (CKD-EPI)AfAm 84.12 Est GFR (CKD-EPI)NonAf 72.58 Random Glucose 84 Calcium 8.6 Phosphorus 3.1 Magnesium 2.1 Total Bilirubin 0.6 AST 21 ALT 10 L Alkaline Phosphatase 97 Total Protein 9.4 H Albumin 1.7 L TB Test (QFT) Nil TB Test (QFT) Mitogen TB Test (QFT) Ag 1 TB Test (QFT) Ag 2 TB Test (QFT) TB Positive Criteria Problem List - Problems (1) Pneumonia Code(s): J18.9 - PNEUMONIA, UNSPECIFIED ORGANISM Qualifiers: Pneumonia type: due to unspecified organism Laterality: right Lung location: upper lobe of lung Qualified Code(s): J18.9 - Pneumonia, unspecified organism (2) HIV (human immunodeficiency virus infection) Code(s): B20 - HUMAN IMMUNODEFICIENCY VIRUS [HIV] DISEASE Qualifiers: HIV symptom status: unspecified Qualified Code(s): B20 - Human immunodeficiency virus [HIV] disease (3) Opioid dependence with withdrawal Code(s): F11.23 - OPIOID DEPENDENCE WITH WITHDRAWAL (4) CVA (cerebral vascular accident) Code(s): I63.9 - CEREBRAL INFARCTION, UNSPECIFIED (5) Cachexia associated with AIDS Code(s): B20 - HUMAN IMMUNODEFICIENCY VIRUS [HIV] DISEASE; R64 - CACHEXIA (6) Lives in homeless retirement Code(s): Z59.0 - HOMELESSNESS (7) Nicotine dependence Code(s): F17.200 - NICOTINE DEPENDENCE, UNSPECIFIED, UNCOMPLICATED (8) Cavitary pneumonia Code(s): J18.9 - PNEUMONIA, UNSPECIFIED ORGANISM; J98.4 - OTHER DISORDERS OF LUNG Assessment/Plan IMP CAVITARY PNEUMONIA ? TB,BACTERIAL HIV/AIDS NOT ON HAART H/O LATENT TB TREATED WITH INH X 6 MONTHS SUBSTANCE ABUSE TOBACCO ABUSE PLAN SUPPLEMENTAL O2 NEEDED INHALED BRONCHODILATORS ABX PER ID SPUTUM FOR AFB,CULTURES, COVID PCR NEGATIVE DR OTOOLE
[2019-11-11 19:41] LABS: BLOOD UREA NITROGEN 31.8 mg/dL (7-18); CALCIUM 8.3 mg/dL (8.5-10.1); CREATININE 1.3 mg/dL (0.55-1.3); POTASSIUM 4.6 mmol/L (3.5-5.1)
[2019-11-12] MEDS: NYSTATIN 500,000 UNITS/5 ML SUSPENSION PO SCH ×4 (00:17→17:07)
[2019-11-12 08:13] LABS: BASO % 1.2 % (0-2.0); EOS % 4.9 % (0-4.5); HEMATOCRIT 37.5 % (35.4-49); HEMOGLOBIN 12.1 GM/dL (11.7-16.9); LYMPH % 15.1 % (8-40); MCH 27.3 pg (25.7-33.7); MCHC 32.3 g/dl (32.0-35.9); MEAN CELL VOLUME 84.5 fl (80-96); MEAN PLT VOLUME 7.4 fl (7.5-11.1); MONO % 9.5 % (3.8-10.2); NEUT % 69.3 % (42.8-82.8); PLATELET COUNT 364 K/MM3 (134-434); RBC 4.44 M/mm3 (4.00-5.60); RDW 15.2 % (11.9-15.9)
[2019-11-12 08:50] LABS: ALBUMIN 1.8 g/dl (3.4-5.0); BILIRUBIN,TOTAL 0.5 mg/dL (0.2-1); BLOOD UREA NITROGEN 28.2 mg/dL (7-18); CALCIUM 8.7 mg/dL (8.5-10.1); MAGNESIUM 2.1 mg/dL (1.8-2.4); TOT PROT 9.8 g/dl (6.4-8.2)
[2019-11-12 08:51] LABS: CREATININE 1.1 mg/dL (0.55-1.3)
[2019-11-12] MEDS ORDERED: DEXTROSE 5%-WATER - 50 ML IVPB ONE (09:04)
[2019-11-12] MEDS ORDERED: cefTRIAXone SODIUM 1 GM VIAL ONE (09:04)
[2019-11-12] MEDS: SULFAMETHOXAZOLE/TRIMETHOPRIM 800MG/160MG D.S. TABLET PO SCH (09:16)
[2019-11-12 09:17] LABS: POTASSIUM 6.3 mmol/L (3.5-5.1)
[2019-11-12] MEDS: ENOXAPARIN NA (PORCINE) 40 MG/0.4 ML DISP.SYRIN SQ SCH (09:17)
[2019-11-12] MEDS: CEFTRIAXONE 1 GM in DEXTROSE 5%-WATER - 50 ML IVPB SCH (09:17)
[2019-11-12 09:58] LABS: ANISOCYTOSIS 0; MACROCYTOSIS 0; PLATELET ESTIMATE NORMAL
[2019-11-12] MEDS ORDERED: DEXTROSE 50%-WATER - 25 GM/50 ML VIAL IVPUSH ONE (10:34)
[2019-11-12] MEDS ORDERED: INSULIN REGULAR HUMAN 100 UNITS/ML *VIAL IVPUSH ONE (10:34)
[2019-11-12] MEDS ORDERED: CALCIUM GLUCONATE 10% - 1,000 MG/10 ML VIAL IVPUSH ONE (10:34)
[2019-11-12] MEDS ORDERED: SODIUM ZIRCONIUM CYCLOSILICATE (LOKELMA) 5 GM PACKET PO ONE (10:36)
[2019-11-12] MEDS ORDERED: DEXTROSE 50%-WATER 25 GM/50 ML DISP.SYRIN ONE (11:46)
--- NOTE | 2019-11-12 12:26 | PN ---
Progress Note (short form) - Note Progress Note: PULMONARY NO ACUTE EVENTS OVERNIGHT B/L LEG DISCOMFORT VSS/AFEBRILE Constitutional: Yes: NAD, Cachectic Eyes: Yes: WNL HENT: Yes: WNL Neck: Yes: WNL Cardiovascular: Yes: Regular Rate and Rhythm, S1, S2 Respiratory: Yes: Diminished, few scattered rhonchi, no wheeze Gastrointestinal: Yes: Normal Bowel Sounds, Soft Extremities: Yes: WNL Edema: No AFB NEGATIVE X2 STREP ANTIGEN POSITIVE KLEBSIELLA IN SPUTUM QUANTIFERON GOLD NEGATIVE HIV + CD4 :6 CT CHEST NOTED IMP CAVITARY PNEUMONIA LIKELY BACTERIAL HIV/AIDS NOT ON HAART H/O LATENT TB TREATED WITH INH X 6 MONTHS SUBSTANCE ABUSE TOBACCO ABUSE PLAN SUPPLEMENTAL O2 NEEDED INHALED BRONCHODILATORS ABX PER ID CHECK 3RD AFB COVID PCR NEGATIVE Kevin HILL MD
[2019-11-12 14:12] LABS: BLOOD UREA NITROGEN 30.3 mg/dL (7-18); CALCIUM 9.3 mg/dL (8.5-10.1); CREATININE 1.2 mg/dL (0.55-1.3); POTASSIUM 4.5 mmol/L (3.5-5.1)
--- NOTE | 2019-11-12 14:43 | PN ---
Physical Exam: SUBJECTIVE: Patient seen and examined this AM. No new complaints, no acute overnight events. OBJECTIVE: Vital Signs Period Temp Pulse Resp BP Sys/Carrera Pulse Ox Last 24 Hr 98.0 F-99.1 F 94-111 18-20 93-128/60-78 94-97 GENERAL: A&Ox3, NAD EYES: EOMI NECK: Supple, no JVD LUNGS: CTA B/L no wheezing HEART: Regular rate and rhythm, S1, S2 without murmur ABDOMEN: Soft, NT ND +BS EXTREMITIES: no edema. SKIN: Warm, dry Laboratory Last Values WBC 6.0 K/mm3 (4.0-10.0) 11/12/19 05:30 RBC 4.44 M/mm3 (4.00-5.60) 11/12/19 05:30 Hgb 12.1 GM/dL (11.7-16.9) 11/12/19 05:30 Hct 37.5 % (35.4-49) 11/12/19 05:30 MCV 84.5 fl (80-96) 11/12/19 05:30 MCH 27.3 pg (25.7-33.7) 11/12/19 05:30 MCHC 32.3 g/dl (32.0-35.9) 11/12/19 05:30 RDW 15.2 % (11.9-15.9) 11/12/19 05:30 Plt Count 364 K/MM3 (134-434) 11/12/19 05:30 MPV 7.4 fl (7.5-11.1) L 11/12/19 05:30 Absolute Neuts (auto) 4.2 K/mm3 (1.5-8.0) 11/12/19 05:30 Absolute Lymphs (auto) 0.7 x10E3/uL (0.7-3.1) 11/07/19 07:40 Neutrophils % 69.3 % (42.8-82.8) 11/12/19 05:30 Neutrophils % (Manual) 80.6 % (42.8-82.8) 11/12/19 05:30 Band Neutrophils % 0.0 % 11/12/19 05:30 Lymphocytes % 15.1 % (8-40) 11/12/19 05:30 Lymphocytes % (Manual) 12.3 % (8-40) D 11/12/19 05:30 Monocytes % 9.5 % (3.8-10.2) 11/12/19 05:30 Monocytes % (Manual) 2 % (3.8-10.2) L 11/12/19 05:30 Eosinophils % 4.9 % (0-4.5) H D 11/12/19 05:30 Eosinophils % (Manual) 3.1 % (0-4.5) 11/12/19 05:30 Basophils % 1.2 % (0-2.0) 11/12/19 05:30 Basophils % (Manual) 0.0 % (0-2.0) 11/12/19 05:30 Myelocytes % (Man) 0 % (0-2) 11/12/19 05:30 Promyelocytes % (Man) 0 % (0-2) 11/12/19 05:30 Blast Cells % (Manual) 0 % (0-0) 11/12/19 05:30 Nucleated RBC % 0 % (0-0) 11/12/19 05:30 Lymphocytes 7 % (Not Estab.) 11/07/19 07:40 Metamyelocytes 0 % (0-2) 11/12/19 05:30 Nucleated RBCs TNP 11/07/19 07:40 Hypochromia 0 11/12/19 05:30 Platelet Estimate Normal 11/12/19 05:30 Platelet Comment Present 11/12/19 05:30 Polychromasia 0 11/12/19 05:30 Poikilocytosis 0 11/12/19 05:30 Anisocytosis 0 11/12/19 05:30 Microcytosis 0 11/12/19 05:30 Macrocytosis 0 11/12/19 05:30 Stomatocytes 1+ 11/09/19 05:25 PT with INR 21.00 SEC (9.7-13.0) H 11/06/19 09:15 INR 1.77 (0.83-1.09) H 11/06/19 09:15 PTT (Actin FS) 31.6 SECONDS (25.2-36.5) 11/06/19 09:15 Sodium 130 mmol/L (136-145) L 11/12/19 13:05 Potassium 4.5 mmol/L (3.5-5.1) 11/12/19 13:05 Chloride 100 mmol/L (98-107) 11/12/19 13:05 Carbon Dioxide 23 mmol/L (21-32) 11/12/19 13:05 Anion Gap 7 MMOL/L (8-16) L 11/12/19 13:05 BUN 30.3 mg/dL (7-18) H 11/12/19 13:05 Creatinine 1.2 mg/dL (0.55-1.3) 11/12/19 13:05 Est GFR (CKD-EPI)AfAm 75.72 11/12/19 13:05 Est GFR (CKD-EPI)NonAf 65.33 11/12/19 13:05 Random Glucose 33 mg/dL (74-106) L* 11/12/19 13:05 Lactic Acid 1.5 mmol/L (0.4-2.0) 11/06/19 15:00 Calcium 9.3 mg/dL (8.5-10.1) 11/12/19 13:05 Phosphorus 3.0 mg/dL (2.5-4.9) 11/12/19 05:30 Magnesium 2.1 mg/dL (1.8-2.4) 11/12/19 05:30 Total Bilirubin 0.5 mg/dL (0.2-1) 11/12/19 05:30 AST 25 U/L (15-37) 11/12/19 05:30 ALT 12 U/L (13-61) L 11/12/19 05:30 Alkaline Phosphatase 121 U/L (45-117) H 11/12/19 05:30 Creatine Kinase 14 U/L (26-308) L 11/06/19 09:15 Troponin I < 0.02 ng/ml (0.00-0.05) 11/06/19 09:15 Total Protein 9.8 g/dl (6.4-8.2) H 11/12/19 05:30 Albumin 1.8 g/dl (3.4-5.0) L 11/12/19 05:30 Urine Color Yellow 11/06/19 21:20 Urine Appearance Clear 11/06/19 21:20 Urine pH 7.0 (5.0-8.0) 11/06/19 21:20 Ur Specific Fults 1.017 (1.010-1.035) 11/06/19 21:20 Urine Protein Trace (NEGATIVE) 11/06/19 21:20 Urine Glucose (UA) Negative (NEGATIVE) 11/06/19 21:20 Urine Ketones Negative (NEGATIVE) 11/06/19 21:20 Urine Blood 2+ (NEGATIVE) H 11/06/19 21:20 Urine Nitrite Negative (NEGATIVE) 11/06/19 21:20 Urine Bilirubin Negative (NEGATIVE) 11/06/19 21:20 Urine Urobilinogen 1.0 mg/dL (0.2-1.0) 11/06/19 21:20 Ur Leukocyte Esterase Negative (NEGATIVE) 11/06/19 21:20 Urine WBC (Auto) 2 /uL (0-25.8) 11/06/19 21:20 Urine RBC (Auto) 434 /uL (0-23.9) 11/06/19 21:20 Urine Casts (Auto) 0 /uL (0-3.1) 11/06/19 21:20 U Epithel Cells (Auto) 4 /uL (0-25.1) 11/06/19 21:20 Urine Bacteria (Auto) 5 /uL (0-1359) 11/06/19 21:20 Absolute CD3 Count 505 /uL (622-2402) L 11/07/19 07:40 % CD3+ Lymphocytes 72.1 % (57.5-86.2) 11/07/19 07:40 Absolute CD4 [place] 6 /uL (359-1519) L 11/07/19 07:40 % CD4+ Lymphocyte 0.9 % (30.8-58.5) L 11/07/19 07:40 CD4/CD8 Ratio 0.01 (0.92-3.72) L 11/07/19 07:40 % CD8+ Lymphocyte 68.1 % (12.0-35.5) H 11/07/19 07:40 Absolute CD8 Count 477 /uL (109-897) 11/07/19 07:40 COVID-19 ([facility]) Not detected (Not Detected) 11/06/19 15:00 HIV-1 RNA (PCR) 39753 copies/mL (.) 11/07/19 07:40 HIV-1 RNA (PCR) log10 4.913 (.) 11/07/19 07:40 TB Test (QFT) Nil 0.02 IU/mL (.) 11/08/19 13:30 TB Test (QFT) Mitogen 3.36 IU/mL (.) 11/08/19 13:30 TB Test (QFT) Ag 1 0.02 IU/mL (.) 11/08/19 13:30 TB Test (QFT) Ag 2 0.02 IU/mL (.) 11/08/19 13:30 TB Test (QFT) Negative (Negative) 11/08/19 13:30 TB Positive Criteria (.) 11/08/19 13:30 Microbiology 11/09/19 13:20 Sputum - Expectorated AFB Smear Concentration - Final 11/09/19 13:20 Sputum - Expectorated Mycobacterial Culture - Preliminary 11/09/19 07:00 Sputum - Expectorated AFB Smear Concentration - Final 11/09/19 07:00 Sputum - Expectorated Mycobacterial Culture - Preliminary 11/06/19 09:15 Blood - Peripheral Venous Blood Culture - Final NO GROWTH AFTER 5 DAYS INCUBATION 11/06/19 09:15 Blood - Peripheral Venous Blood Culture - Final NO GROWTH AFTER 5 DAYS INCUBATION 11/08/19 12:00 Sputum - Expectorated Gram Stain - Final 11/08/19 12:00 Sputum - Expectorated Sputum Culture - Final Klebsiella Pneumoniae 11/09/19 07:00 Urine For Antigen Detection Legionella Antigen - Final 11/09/19 07:00 Urine For Antigen Detection Streptococcus pneumoniae Antigen (M - Final 11/06/19 06:30 Sputum - Expectorated AFB Smear Concentration - Preliminary 11/06/19 06:30 Sputum - Expectorated Mycobacterial Culture - Preliminary 11/06/19 21:30 Urine - Urine Clean Catch Urine Culture - Final NO GROWTH OBTAINED Active Medications Acetaminophen (Tylenol -) 650 mg PO Q6H PRN PRN Reason: PAIN LEVEL 4 - 6 Last Admin: 11/11/19 11:43 Dose: 650 mg Documented by: Enoxaparin Sodium (Lovenox -) 40 mg SQ DAILY [facility] Last Admin: 11/12/19 09:17 Dose: 40 mg Documented by: Ceftriaxone Sodium 1 gm/ (Dextrose) 50 mls @ 100 mls/hr IVPB DAILY [facility] Last Admin: 11/12/19 09:17 Dose: 100 mls/hr Documented by: Nystatin (Nystatin Oral Suspension -) 500,000 units PO Q6HPO [facility] Last Admin: 11/12/19 14:05 Dose: 500,000 units Documented by: Trimethoprim/Sulfamethoxazole (Bactrim Ds -) 1 each PO DAILY [facility] Last Admin: 11/12/19 09:16 Dose: 1 each Documented by: ASSESSMENT/PLAN: 58 y/o M PMHx of HIV (Not on HAART therapy, Unknown viral load and CD4 count), polysubstance abuse, Hx of TB, presents with fever and cough concerning for Pneumonia. #Pneumonia w/ cavitary lesion; in the setting of untreated HIV, history of TB. Rule out TB vs. Aspergillus vs. a necrotic PNA vs. atypical PNA given CT findings ID on board: Appreciate recommendations CT chest +RUL consolidation with cavitation, scattered infiltrates and bibasilar atelectasis/consolidations, moderate COPD QuantiFERON negative, HIV-1 RNA PCR pending -Sputum cx growing Klebsiella PNA Patient requires rule out TB: AFB x3; Thus far negative x 2 Urine Ag +Strep pneumo/neg for Leg -Completed course of Azithromycin and Ceftriaxone -Pulm consulted #Hyperkalemia, Resolved -Treated medically this AM #HIV CD4 count 6 -c/w Nystatin for oral thrush, Bactrim, Azithromycin -Referral to [facility] upon DC #Malnutrition; BMI 16 -add Magic Cup/Ensure #FEN -PO hydration -monitor electrolytes and replete as needed -Regular Diet + Magic Cup/Ensure per dietary recs, BMI:16, will require supplemenatation #DVT PPx DVT: Lovenox 40 Dispo: Pending 3rd negative AFB, refer to [place] [facility] on DC Visit type - Emergency Visit Emergency Visit: Yes ED Registration Date: 11/06/19 Care time: The patient presented to the Emergency Department on the above date and was hospitalized for further evaluation of their emergent condition. - New Patient This patient is new to me today: Yes Date on this admission: 11/12/19 - Critical Care Critical Care patient: No - Discharge Referral [facility]erred [facility] Med P.C.: No ATTENDING PHYSICIAN STATEMENT I saw and evaluated the patient. I reviewed the resident's note and discussed the case with the resident. I agree with the resident's findings and plan as documented. SUBJECTIVE: OBJECTIVE: ASSESSMENT AND PLAN:
--- NOTE | 2019-11-12 15:12 | PN ---
Teaching Attending Note Name of Resident: Sujatha Harris ATTENDING PHYSICIAN STATEMENT I saw and evaluated the patient. I reviewed the resident's note and discussed the case with the resident. I agree with the resident's findings and plan as documented. SUBJECTIVE: No acute events. No complaints today OBJECTIVE: Vital Signs Temperature 98.9 F 11/12/19 14:21 Pulse Rate 111 H 11/12/19 14:21 Respiratory Rate 11/12/19 14:21 Blood Pressure 128/78 11/12/19 14:21 O2 Sat by Pulse Oximetry (%) 94 L 11/12/19 14:21 PE: Gen: Thin appearing, NAD, sitting up in bed HEENT: NC/AT, sclera anicteric, SARAH, MMM, no thrush noted LUNG: Improved rhonchi R middle lobe, no wheezing appreciated. CARD: RRR no murmurs appreciated ABD: soft, thin, NT/ND, + BS EXT: No rashes or lesions, no edema CBC, BMP 11/12/19 05:30 11/12/19 13:05 Active Medications Acetaminophen (Tylenol -) 650 mg PO Q6H PRN PRN Reason: PAIN LEVEL 4 - 6 Last Admin: 11/11/19 11:43 Dose: 650 mg Documented by: Enoxaparin Sodium (Lovenox -) 40 mg SQ DAILY [facility] Last Admin: 11/12/19 09:17 Dose: 40 mg Documented by: Nystatin (Nystatin Oral Suspension -) 500,000 units PO Q6HPO [facility] Last Admin: 11/12/19 14:05 Dose: 500,000 units Documented by: Trimethoprim/Sulfamethoxazole (Bactrim Ds -) 1 each PO DAILY [facility] Last Admin: 11/12/19 09:16 Dose: 1 each Documented by: ASSESSMENT AND PLAN: Community-Acquired Pneumonia RUL Cavitary Lesion HIV with AIDS Thrush (resolving) Hyperkalemia --Patient completed antibiotic therapy for community-acquired pneumonia --Continue opportunistic prophylaxis daily --Patient to follow with HIV clinic ([facility] vs. [facility]) --Sputum AFP negative x3 required prior to discharge --Continue DVT PPX --Can discontinue nystatin after today's dose --Hyperkalemia treated with cocktail (hypoglycemia recorded results after Insulin 10U given; D50 given with improvement) Dispo: Placement pending; AFP negative x3 awaiting [place], - IM
--- NOTE | 2019-11-12 16:45 | PN ---
Progress Note, Physician History of Present Illness: AWAKE IN BED NO C/O CHEST PAIN/ DYSPNEA LESS COUGH LESS SPUTUM/ NO HEMOPTYSIS NO C/O FEVER/ CHILLS AFEBRILE CT SHOWS DENSE RUL CONSOLIDATION WITH CAVITATION AFB SMEAR NEG PCR PENDING QUANTIFERON REPORTED NEGATIVE ? ANERGIC CD4 6 - Current Medication List Current Medications: Active Medications Acetaminophen (Tylenol -) 650 mg PO Q6H PRN PRN Reason: PAIN LEVEL 4 - 6 Last Admin: 11/11/19 11:43 Dose: 650 mg Documented by: Enoxaparin Sodium (Lovenox -) 40 mg SQ DAILY [facility] Last Admin: 11/12/19 09:17 Dose: 40 mg Documented by: Ceftriaxone Sodium 2 gm/ (Dextrose) 100 mls @ 100 mls/hr IVPB DAILY [facility]; Protocol Nystatin (Nystatin Oral Suspension -) 500,000 units PO Q6HPO [facility] Last Admin: 11/12/19 14:05 Dose: 500,000 units Documented by: Trimethoprim/Sulfamethoxazole (Bactrim Ds -) 1 each PO DAILY [facility] Last Admin: 11/12/19 09:16 Dose: 1 each Documented by: - Objective Vital Signs: Vital Signs Temperature 98.9 F 11/12/19 14:21 Pulse Rate 111 H 11/12/19 14:21 Respiratory Rate 20 11/12/19 14:21 Blood Pressure 128/78 11/12/19 14:21 O2 Sat by Pulse Oximetry (%) 94 L 11/12/19 14:21 Constitutional: Yes: No Distress, Cachectic Cardiovascular: Yes: Regular Rate and Rhythm, S1, S2 Respiratory: Yes: Rhonchi Gastrointestinal: Yes: Normal Bowel Sounds, Soft. No: Tenderness Edema: No Labs: CBC, BMP 11/12/19 05:30 11/12/19 13:05 INR, PTT INR 1.77 (0.83-1.09) H 11/06/19 09:15 Assessment/Plan CAVITARY PNEUMONIA IN HOMELESS PT WITH HIV ? AFB DZ ? NECROTIZING PNEUMONIA ? CAVITARY CARCINOMA ? ASPERGILLUS + PNEUMOCOCCAL AG ? PNEUMOCOCCAL PNEUMONIA HIV/AIDS CD4 6 AWAIT SPUTUM AFB PCR CONTINUE CEFTRIAXONE MAINTAIN AFB ISOLATION
[2019-11-13] MEDS: NYSTATIN 500,000 UNITS/5 ML SUSPENSION PO SCH ×5 (01:00→23:04)
[2019-11-13 07:18] LABS: BASO % 1.5 % (0-2.0); EOS % 4.5 % (0-4.5); HEMATOCRIT 36.9 % (35.4-49); HEMOGLOBIN 12.1 GM/dL (11.7-16.9); MCH 27.4 pg (25.7-33.7); MCHC 32.8 g/dl (32.0-35.9); MEAN CELL VOLUME 83.5 fl (80-96); MEAN PLT VOLUME 7.2 fl (7.5-11.1); MONO % 7.6 % (3.8-10.2); NEUT % 75.4 % (42.8-82.8); PLATELET COUNT 349 K/MM3 (134-434); RBC 4.42 M/mm3 (4.00-5.60); RDW 15.2 % (11.9-15.9); WHITE BLOOD COUNT 6.1 K/mm3 (4.0-10.0)
[2019-11-13 07:35] LABS: ALBUMIN 1.8 g/dl (3.4-5.0); BILIRUBIN,TOTAL 0.9 mg/dL (0.2-1); BLOOD UREA NITROGEN 28.3 mg/dL (7-18); CALCIUM 8.3 mg/dL (8.5-10.1); CREATININE 1.2 mg/dL (0.55-1.3); MAGNESIUM 1.9 mg/dL (1.8-2.4); PHOSPHOROUS 2.7 mg/dL (2.5-4.9); POTASSIUM 5.5 mmol/L (3.5-5.1); TOT PROT 9.9 g/dl (6.4-8.2)
[2019-11-13] MEDS ORDERED: DEXTROSE 5%-WATER 100 ML IVPB ONE (08:48)
[2019-11-13] MEDS: CEFTRIAXONE 2 GM in DEXTROSE 5%-WATER 100 ML IVPB SCH (08:59)
[2019-11-13] MEDS: ENOXAPARIN NA (PORCINE) 40 MG/0.4 ML DISP.SYRIN SQ SCH ×2 (09:09→09:22)
[2019-11-13] MEDS: SULFAMETHOXAZOLE/TRIMETHOPRIM 800MG/160MG D.S. TABLET PO SCH (09:09)
[2019-11-13] MEDS: ACETAMINOPHEN 325 MG TABLET (FP) PO PRN ×2 (09:09→17:28)
[2019-11-13 10:00] LABS: URINE APPEARANCE CLEAR; URINE COLOR YELLOW
[2019-11-13 10:01] LABS: PH,URINE 6.5 (5.0-8.0); URINE BILIRUBIN NEGATIVE (NEGATIVE); URINE GLUCOSE (UA) NEGATIVE (NEGATIVE); URINE KETONE NEGATIVE (NEGATIVE)
[2019-11-13 10:02] LABS: URINE LEUK ESTERASE NEGATIVE (NEGATIVE); URINE NITRITE NEGATIVE (NEGATIVE); URINE PROTEIN NEGATIVE (NEGATIVE); URINE UROBILINOGEN 0.2 mg/dL (0.2-1.0)
--- NOTE | 2019-11-13 11:21 | PN ---
Progress Note (short form) - Note Progress Note: PULMONARY NO ACUTE EVENTS OVERNIGHT VSS/AFEBRILE Constitutional: Yes: NAD, Cachectic Eyes: Yes: WNL HENT: Yes: WNL Neck: Yes: WNL Cardiovascular: Yes: Regular Rate and Rhythm, S1, S2 Respiratory: Yes: Diminished, few scattered rhonchi, no wheeze Gastrointestinal: Yes: Normal Bowel Sounds, Soft Extremities: Yes: WNL Edema: No AFB NEGATIVE X2/PCR PENDING STREP ANTIGEN POSITIVE KLEBSIELLA IN SPUTUM QUANTIFERON GOLD NEGATIVE HIV + CD4 :6 CT CHEST NOTED IMP CAVITARY PNEUMONIA LIKELY BACTERIAL HIV/AIDS NOT ON HAART H/O LATENT TB TREATED WITH INH X 6 MONTHS SUBSTANCE ABUSE TOBACCO ABUSE PLAN SUPPLEMENTAL O2 NEEDED INHALED BRONCHODILATORS ABX PER ID CHECK 3RD AFB/PCR COVID PCR NEGATIVE Kevin HILL MD
--- NOTE | 2019-11-13 11:40 | PN ---
Progress Note (short form) - Note Progress Note: SUBJECTIVE: Seen and examined at bedside. no complaints. AFB smear negx3, pending PCR OBJECTIVE PE: GEN: NAD Last Vital Signs Temp Pulse Resp BP Pulse Ox 99.5 F 99 H 18 96/73 95 11/13/19 08:58 11/13/19 08:58 11/13/19 08:58 11/13/19 08:58 11/13/19 09:00 HEENT: NC/AT [facility] RESP: CTAB CARDS: RRR, -MRG ABD: soft, nt/nd +BS EXT: No swelling/Edema Neuro: Non-focal, A&OX3 Labs/Imaging: reviewed ASSESSMENT/PLAN 58-year-old male past medical history of HIV for 30+ years, not currently on HAART, last CD4 count unknown, polysubstance abuse, history of TB, presents from [facility] for fever and cough. #Cavitary Pneumonia in the setting of untreated HIV, history of TB -sputum cx show pansensitive klebsilla ID on board: Appreciate recommendations QuantiFERON negitve AFB neg x3, pending PCR Continue ceftriaxone #HIV/AIDS CD4 count of 6. Patient reports was diagnosed with HIV in the late 80s, has been on HIV meds in the past, off for the last year -currently on bactrim and azithromycin -further recs per ID Discussed with ID: We will not restart on HAART now but will refer to the [facility] on discharge Visit type - Emergency Visit Emergency Visit: Yes ED Registration Date: 11/06/19 Care time: The patient presented to the Emergency Department on the above date and was hospitalized for further evaluation of their emergent condition. - New Patient This patient is new to me today: No - Critical Care Critical Care patient: No
[2019-11-13 13:13] LABS: ANISOCYTOSIS 0; MACROCYTOSIS 0; PLATELET ESTIMATE NORMAL
[2019-11-14] MEDS: NYSTATIN 500,000 UNITS/5 ML SUSPENSION PO SCH ×4 (06:28→23:46)
[2019-11-14] MEDS ORDERED: DEXTROSE 5%-WATER 100 ML IVPB ONE (09:28)
[2019-11-14 09:59] LABS: BASO % 0.9 % (0-2.0); EOS % 4.3 % (0-4.5); HEMOGLOBIN 12.8 GM/dL (11.7-16.9); LYMPH % 9.3 % (8-40); MCH 26.9 pg (25.7-33.7); MCHC 32.1 g/dl (32.0-35.9); MEAN CELL VOLUME 83.9 fl (80-96); MEAN PLT VOLUME 7.5 fl (7.5-11.1); MONO % 5.4 % (3.8-10.2); NEUT % 80.1 % (42.8-82.8); PLATELET COUNT 338 K/MM3 (134-434); RBC 4.77 M/mm3 (4.00-5.60); RDW 15.1 % (11.9-15.9); WHITE BLOOD COUNT 4.9 K/mm3 (4.0-10.0)
[2019-11-14 10:03] LABS: BLOOD UREA NITROGEN 29.2 mg/dL (7-18); CALCIUM 8.7 mg/dL (8.5-10.1); CREATININE 1.3 mg/dL (0.55-1.3); PHOSPHOROUS 3.1 mg/dL (2.5-4.9); POTASSIUM 5.2 mmol/L (3.5-5.1)
[2019-11-14] MEDS: SULFAMETHOXAZOLE/TRIMETHOPRIM 800MG/160MG D.S. TABLET PO SCH (10:14)
[2019-11-14] MEDS: CEFTRIAXONE 2 GM in DEXTROSE 5%-WATER 100 ML IVPB SCH (10:16)
[2019-11-14] MEDS: ENOXAPARIN NA (PORCINE) 40 MG/0.4 ML DISP.SYRIN SQ SCH (10:16)
--- NOTE | 2019-11-14 11:55 | PN ---
Progress Note (short form) - Note Progress Note: SUBJECTIVE: Seen and examined at bedside. no complaints. Urine studies consistent with SIADH. Patient placed on fluid restriction OBJECTIVE Last Vital Signs Temp Pulse Resp BP Pulse Ox 98.5 F 101 H 18 110/73 98 11/14/19 07:00 11/14/19 07:00 11/14/19 07:00 11/14/19 07:00 11/14/19 07:00 PE: GEN: NAD HEENT: NC/AT [place] RESP: CTAB CARDS: RRR, -MRG ABD: soft, nt/nd +BS EXT: No swelling/Edema Neuro: Non-focal, A&OX3 Labs/Imaging: reviewed ASSESSMENT/PLAN 58-year-old male past medical history of HIV for 30+ years, not currently on HAART, last CD4 count unknown, polysubstance abuse, history of TB, presents from [facility] for fever and cough. #Cavitary Pneumonia in the setting of untreated HIV, history of TB -fungitell positive: sent sputum fungal culture -sputum cx show pansensitive klebsilla ID on board: Appreciate recommendations QuantiFERON negitve AFB neg x3, pending PCR Continue ceftriaxone #HIV/AIDS CD4 count of 6. Patient reports was diagnosed with HIV in the late 80s, has been on HIV meds in the past, off for the last year -currently on bactrim -further recs per ID Discussed with ID: We will not restart on HAART now but will refer to the [facility] on discharge #SIADH Trend sodium every 12 1 L fluid restriction Visit type - Emergency Visit Emergency Visit: Yes ED Registration Date: 11/06/19 Care time: The patient presented to the Emergency Department on the above date and was hospitalized for further evaluation of their emergent condition. - New Patient This patient is new to me today: No - Critical Care Critical Care patient: No
--- NOTE | 2019-11-14 12:01 | PN ---
Progress Note (short form) - Note Progress Note: PULMONARY NO ACUTE EVENTS OVERNIGHT VSS/AFEBRILE Constitutional: Yes: NAD, Cachectic Eyes: Yes: WNL HENT: Yes: WNL Neck: Yes: WNL Cardiovascular: Yes: Regular Rate and Rhythm, S1, S2 Respiratory: Yes: Diminished, few scattered rhonchi, no wheeze Gastrointestinal: Yes: Normal Bowel Sounds, Soft Extremities: Yes: WNL Edema: No AFB NEGATIVE X3/PCR PENDING STREP ANTIGEN POSITIVE KLEBSIELLA IN SPUTUM QUANTIFERON GOLD NEGATIVE HIV + CD4 :6 CT CHEST NOTED IMP CAVITARY PNEUMONIA LIKELY BACTERIAL HIV/AIDS NOT ON HAART H/O LATENT TB TREATED WITH INH X 6 MONTHS FUNGITELL + (?SIGNIFICANCE) SUBSTANCE ABUSE TOBACCO ABUSE PLAN SUPPLEMENTAL O2 NEEDED INHALED BRONCHODILATORS ABX PER ID CHECK AFB/PCR COVID PCR NEGATIVE Kevin HILL MD
[2019-11-14 13:05] LABS: ANISOCYTOSIS 0; MACROCYTOSIS 0; PLATELET ESTIMATE NORMAL
[2019-11-15] MEDS: NYSTATIN 500,000 UNITS/5 ML SUSPENSION PO SCH ×3 (05:57→17:43)
[2019-11-15 08:13] LABS: BASO % 1.2 % (0-2.0); EOS % 7.9 % (0-4.5); HEMATOCRIT 36.5 % (35.4-49); MCH 27.4 pg (25.7-33.7); MEAN CELL VOLUME 82.9 fl (80-96); MEAN PLT VOLUME 7.7 fl (7.5-11.1); MONO % 7.6 % (3.8-10.2); NEUT % 69.3 % (42.8-82.8); PLATELET COUNT 285 K/MM3 (134-434); RDW 15.3 % (11.9-15.9); WHITE BLOOD COUNT 6.1 K/mm3 (4.0-10.0)
[2019-11-15 08:50] LABS: BLOOD UREA NITROGEN 27.7 mg/dL (7-18); CALCIUM 7.9 mg/dL (8.5-10.1); CREATININE 1.3 mg/dL (0.55-1.3); POTASSIUM 5.4 mmol/L (3.5-5.1)
[2019-11-15] MEDS ORDERED: DEXTROSE 5%-WATER 100 ML IVPB ONE (09:14)
[2019-11-15] MEDS: ENOXAPARIN NA (PORCINE) 40 MG/0.4 ML DISP.SYRIN SQ SCH (09:20)
[2019-11-15] MEDS: CEFTRIAXONE 2 GM in DEXTROSE 5%-WATER 100 ML IVPB SCH (09:20)
[2019-11-15] MEDS: SULFAMETHOXAZOLE/TRIMETHOPRIM 800MG/160MG D.S. TABLET PO SCH (09:20)
[2019-11-15 10:08] LABS: ANISOCYTOSIS 0; MACROCYTOSIS 0; PLATELET ESTIMATE NORMAL
--- NOTE | 2019-11-15 12:44 | PN ---
Teaching Attending Note Name of Resident: Octavio Croft ATTENDING PHYSICIAN STATEMENT I saw and evaluated the patient. I reviewed the resident's note and discussed the case with the resident. I agree with the resident's findings and plan as documented. SUBJECTIVE: Seen and examined at bedside. no complaints. Urine studies consistent with SIAD H. Patient placed on fluid restriction OBJECTIVE Last Vital Signs Temp Pulse Resp BP Pulse Ox 99 F 961 H 19 102/73 95 11/15/19 09:18 11/15/19 09:18 11/15/19 09:18 11/15/19 09:18 11/15/19 09:18 PE: per resident note Labs/Imaging: reviewed ASSESSMENT/PLAN 58-year-old male past medical history of HIV for 30+ years, not currently on HAART, last CD4 count unknown, polysubstance abuse, history of TB, presents from [facility] for fever and cough. #Cavitary Pneumonia in the setting of untreated HIV, history of TB -fungitell positive: sent sputum fungal culture -sputum cx show pansensitive klebsilla ID on board: Appreciate recommendations QuantiFERON negitve AFB neg x3, pending PCR Continue ceftriaxone #HIV/AIDS CD4 count of 6. Patient reports was diagnosed with HIV in the late 80s, has been on HIV meds in the past, off for the last year -currently on bactrim -further recs per ID Discussed with ID: We will not restart on HAART now but will refer to the [facility] on discharge #SIADH Trend sodium every 12 1 L fluid restriction
--- NOTE | 2019-11-15 12:47 | PN ---
Teaching Attending Note Name of Resident: Octavio Croft ATTENDING PHYSICIAN STATEMENT I saw and evaluated the patient. I reviewed the resident's note and discussed the case with the resident. I agree with the resident's findings and plan as documented. SUBJECTIVE: Seen and examined at bedside. no complaints. Sodium continues to remain depress ed, potassium increasing. Nephrology consulted OBJECTIVE Last Vital Signs Temp Pulse Resp BP Pulse Ox 99 F 961 H 19 102/73 95 11/15/19 09:18 11/15/19 09:18 11/15/19 09:18 11/15/19 09:18 11/15/19 09:18 PE: per resident note Labs/Imaging: reviewed ASSESSMENT/PLAN 58-year-old male past medical history of HIV for 30+ years, not currently on HAART, last CD4 count unknown, polysubstance abuse, history of TB, presents from [facility] for fever and cough. #Cavitary Pneumonia in the setting of untreated HIV, history of TB -fungitell positive: sent sputum fungal culture -sputum cx show pansensitive klebsilla ID on board: Appreciate recommendations QuantiFERON negitve AFB neg x3, pending PCR Continue ceftriaxone #HIV/AIDS CD4 count of 6. Patient reports was diagnosed with HIV in the late 80s, has been on HIV meds in the past, off for the last year -currently on bactrim -further recs per ID Discussed with ID: We will not restart on HAART now but will refer to the 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 Pt is asymptomatic Trend sodium daily 1 L fluid restriction -Dr. Chris consulted #Hyperkalemia Possibly secondary to Bactrim. Will consult nephrology and discuss switching to alternate prophylactic medication with ID
--- NOTE | 2019-11-15 12:55 | PN ---
Progress Note (short form) - Note Progress Note: PULMONARY Denies shortness of breath, cough. No fevers recorded. Vital Signs Period Temp Pulse Resp BP Sys/Carrera Pulse Ox Last 24 Hr 98.8 F-99.0 F 96-961 - 102-104/68-75 95-98 Gen: NAD at rest Heart: RRR Lung: decreased breath sounds at the bases Abd: soft, nontender Ext: no edema CBC, BMP 11/15/19 05:30 11/15/19 05:30 Active Medications Acetaminophen (Tylenol -) 650 mg PO Q6H PRN PRN Reason: PAIN LEVEL 4 - 6 Last Admin: 11/13/19 17:28 Dose: 650 mg Documented by: Enoxaparin Sodium (Lovenox -) 40 mg SQ DAILY [facility] Last Admin: 11/15/19 09:20 Dose: 40 mg Documented by: Ceftriaxone Sodium 2 gm/ (Dextrose) 100 mls @ 100 mls/hr IVPB DAILY [facility]; Protocol Last Admin: 11/15/19 09:20 Dose: 100 mls/hr Documented by: Nystatin (Nystatin Oral Suspension -) 500,000 units PO Q6HPO [facility] Last Admin: 11/15/19 12:50 Dose: 500,000 units Documented by: Trimethoprim/Sulfamethoxazole (Bactrim Ds -) 1 each PO DAILY [facility] Last Admin: 11/15/19 09:20 Dose: 1 each Documented by: A/P Cavitary Pneumonia HIV/AIDS h/o Latent TB Smoker - continue antibiotics - O2 to keep SpO2 >90% - will need outpt f/u of chest imaging to ensure resolution of cavitary infiltrates - DVT prophylaxis
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
[2019-11-15] MEDS ORDERED: SODIUM CHLORIDE 1,000 ML IV SCH (15:15)
[2019-11-15] MEDS ORDERED: SODIUM ZIRCONIUM CYCLOSILICATE (LOKELMA) 5 GM PACKET PO ONE (15:15)
--- NOTE | 2019-11-15 15:24 | PN ---
Progress Note, Physician History of Present Illness: AWAKE IN BED NO C/O CHEST PAIN/ DYSPNEA REPORTS MINIMAL COUGH LESS SPUTUM/ NO HEMOPTYSIS NO C/O FEVER/ CHILLS AFEBRILE CT SHOWS DENSE RUL CONSOLIDATION WITH CAVITATION AFB SMEAR NEG PCR PENDING QUANTIFERON REPORTED NEGATIVE ? ANERGIC CD4 6 - Current Medication List Current Medications: Active Medications Acetaminophen (Tylenol -) 650 mg PO Q6H PRN PRN Reason: PAIN LEVEL 4 - 6 Last Admin: 11/13/19 17:28 Dose: 650 mg Documented by: Enoxaparin Sodium (Lovenox -) 40 mg SQ DAILY RONIT Last Admin: 11/15/19 09:20 Dose: 40 mg Documented by: Ceftriaxone Sodium 2 gm/ (Dextrose) 100 mls @ 100 mls/hr IVPB DAILY [facility]; Protocol Last Admin: 11/15/19 09:20 Dose: 100 mls/hr Documented by: Sodium Chloride (Normal Saline -) 1,000 mls @ 75 mls/hr IV ASDIR RONIT Stop: 11/16/19 04:34 Nystatin (Nystatin Oral Suspension -) 500,000 units PO Q6HPO RONIT Last Admin: 11/15/19 12:50 Dose: 500,000 units Documented by: Trimethoprim/Sulfamethoxazole (Bactrim Ds -) 1 each PO DAILY RONIT Last Admin: 11/15/19 09:20 Dose: 1 each Documented by: - Objective Vital Signs: Vital Signs Temperature 99.5 F 11/15/19 13:34 Pulse Rate 111 H 11/15/19 13:34 Respiratory Rate 19 11/15/19 13:34 Blood Pressure 104/60 11/15/19 13:34 O2 Sat by Pulse Oximetry (%) 96 11/15/19 13:34 Constitutional: Yes: No Distress Eyes: Yes: Conjunctiva Clear Cardiovascular: Yes: Regular Rate and Rhythm, S1, S2 Respiratory: Yes: CTA Bilaterally Gastrointestinal: Yes: Normal Bowel Sounds, Soft. No: Tenderness Edema: No Labs: CBC, BMP 11/15/19 05:30 11/15/19 05:30 INR, PTT INR 1.77 (0.83-1.09) H 11/06/19 09:15 Assessment/Plan CAVITARY PNEUMONIA IN HOMELESS PT WITH HIV ? AFB DZ ? NECROTIZING PNEUMONIA ? CAVITARY CARCINOMA ? ASPERGILLUS + PNEUMOCOCCAL AG ? PNEUMOCOCCAL PNEUMONIA HIV/AIDS CD4 6 AWAIT SPUTUM AFB PCR CONTINUE CEFTRIAXONE FOLLOW UP CXR MAINTAIN AFB ISOLATION
--- NOTE | 2019-11-15 15:39 | PN ---
Teaching Attending Note Name of Resident: Richar Aggarwal (Nephrology) ATTENDING PHYSICIAN STATEMENT I saw and evaluated the patient. I reviewed the resident's note and discussed the case with the resident. I agree with the resident's findings and plan as documented. Renal Pt is a 58 year old male with pmhx of hiv and polysubstance abuse. He presented with worsening cough. He was found to have a cavitary lesion on the ct scan. He was also found to be hyperkalemic and hyponatremic. He has been pn bactrim. He denies dysuria or hematuria. He denies excess water intake. He also had a 30 pound weight loss. pmhx hiv soc heroin and cocain family hx mother had breast cancer nkda Laboratory Tests 11/12/19 11/13/19 11/14/19 13:05 06:05 08:34 Sodium 130 L 125 L 127 L Potassium Serum Osmolality 11/15/19 05:30 Sodium 126 L Potassium 5.4 H Serum Osmolality 274 L Last Vital Signs Temp Pulse Resp BP Pulse Ox 99.5 F 111 H 19 104/60 96 11/15/19 13:34 11/15/19 13:34 11/15/19 13:34 11/15/19 13:34 11/15/19 13:34 Current Medications Generic Name Dose Route Start Last Admin Trade Name Freq PRN Reason Stop Dose Admin Acetaminophen 650 mg 11/07/19 12:55 11/13/19 17:28 Tylenol - PO 650 mg Q6H PRN Administration PAIN LEVEL 4 - 6 Enoxaparin Sodium 40 mg 11/07/19 10:00 11/15/19 09:20 Lovenox - SQ 40 mg DAILY RONIT Administration Ceftriaxone Sodium 2 gm/ 100 mls @ 100 mls/hr 11/13/19 10:00 11/15/19 09:20 Dextrose IVPB 100 mls/hr DAILY RONIT Administration Protocol Sodium Chloride 1,000 mls @ 75 mls/hr 11/15/19 15:15 Normal Saline - IV 11/16/19 04:34 ASDIR RONIT Nystatin 500,000 units 11/06/19 18:00 11/15/19 12:50 Nystatin Oral Suspension - PO 500,000 units Q6HPO RONIT Administration Trimethoprim/Sulfamethoxazole 1 each 11/07/19 10:00 09/21/20 09:20 Bactrim Ds - PO 1 each DAILY RONIT Administration cardio s1s2 pulm clear gi soft ext neg edema neuro awake and alert skin neg rash Impression 1. hyponatremia 2. hyperkalemia 3. r/o TB 4. HIV 5. polysubstance - heroin and cocaine 6. malnutrition 7. unintentional weight loss 8. mima with mildly elevated riveter hand Plan - repeat urine sodium and urine osm - give saline challenge as he appears hypovolemic - check am cortisol level - change bactrim to alternate agent as riveter hand and potassium elevated - restrict free water for now - will cont to trend sodium - check renal ultrasound
[2019-11-15 19:19] LABS: EPI CELLS 2 /uL (0-25.1); HYALINE CASTS 0 /uL (0-3.1); PH,URINE 6.5 (5.0-8.0); URINE APPEARANCE CLEAR; URINE BACTERIA 10 /uL (0-1359); URINE BILIRUBIN NEGATIVE (NEGATIVE); URINE COLOR YELLOW; URINE GLUCOSE (UA) NEGATIVE (NEGATIVE); URINE KETONE NEGATIVE (NEGATIVE); URINE LEUK ESTERASE NEGATIVE (NEGATIVE); URINE NITRITE NEGATIVE (NEGATIVE); URINE PROTEIN TRACE (NEGATIVE); URINE RBC 177 /uL (0-23.9); URINE UROBILINOGEN 0.2 mg/dL (0.2-1.0); URINE WBC 1 /uL (0-25.8)
--- NOTE | 2019-11-15 20:28 | PN ---
Physical Exam: SUBJECTIVE: Patient seen and examined at bedside. No acute events overnight. OBJECTIVE: Vital Signs Period Temp Pulse Resp BP Sys/Carrera Pulse Ox Last 24 Hr 98.8 F-99.7 F 96-111 18-19 102-104/60-75 95-98 GENERAL: Cachectic, NAD HEAD: Normal with no signs of trauma. EYES: EOMI Sclera Clear ENT: Ears normal, nares patent, oropharynx clear without exudates, moist mucous membranes. LUNGS: Clear bilaterally HEART: RRR no MRG S1S2 ABDOMEN: Soft NDNT EXTREMITIES: 2+ pulses, warm, well-perfused, no edema. NEUROLOGICAL: No focal neuro deficits appreciated PSYCH: Normal mood, normal affect. SKIN: Warm, dry, normal turgor, no rashes or lesions noted Laboratory Results - last 24 hr 11/15/19 11/15/19 11/15/19 05:30 05:30 15:00 WBC 6.1 RBC 4.40 Hgb 12.0 Hct 36.5 MCV 82.9 MCH 27.4 MCHC 33.0 RDW 15.3 Plt Count 285 MPV 7.7 Absolute Neuts (auto) 4.2 Neutrophils % 69.3 Neutrophils % (Manual) 68.0 Band Neutrophils % 1.0 Lymphocytes % 14.0 D Lymphocytes % (Manual) 13.4 D Monocytes % 7.6 Monocytes % (Manual) 6 D Eosinophils % 7.9 H D Eosinophils % (Manual) 8.3 H Basophils % 1.2 Basophils % (Manual) 1.0 D Myelocytes % (Man) 0 D Promyelocytes % (Man) 0 Blast Cells % (Manual) 0 Nucleated RBC % 0 Metamyelocytes 2 D Hypochromia 0 Platelet Estimate Normal Polychromasia 0 Poikilocytosis 0 Anisocytosis 0 Microcytosis 0 Macrocytosis 0 Sodium 126 L Potassium 5.4 H Chloride 96 L Carbon Dioxide 23 Anion Gap 7 L BUN 27.7 H Creatinine 1.3 Est GFR (CKD-EPI)AfAm 68.74 Est GFR (CKD-EPI)NonAf 59.31 Random Glucose 79 Serum Osmolality 274 L Calcium 7.9 L Urine Color Urine Appearance Urine pH Ur Specific Clark Urine Protein Urine Glucose (UA) Urine Ketones Urine Blood Urine Nitrite Urine Bilirubin Urine Urobilinogen Ur Leukocyte Esterase Urine WBC (Auto) Urine RBC (Auto) Urine Casts (Auto) U Epithel Cells (Auto) Urine Bacteria (Auto) Urine Osmolality 687 Ur Random Sodium 32 L Ur Random Potassium 66.0 Ur Random Chloride < 11 L 11/15/19 11/15/19 17:18 17:18 WBC RBC Hgb Hct MCV MCH MCHC RDW Plt Count MPV Absolute Neuts (auto) Neutrophils % Neutrophils % (Manual) Band Neutrophils % Lymphocytes % Lymphocytes % (Manual) Monocytes % Monocytes % (Manual) Eosinophils % Eosinophils % (Manual) Basophils % Basophils % (Manual) Myelocytes % (Man) Promyelocytes % (Man) Blast Cells % (Manual) Nucleated RBC % Metamyelocytes Hypochromia Platelet Estimate Polychromasia Poikilocytosis Anisocytosis Microcytosis Macrocytosis Sodium Potassium Chloride Carbon Dioxide Anion Gap BUN Creatinine Est GFR (CKD-EPI)AfAm Est GFR (CKD-EPI)NonAf Random Glucose Serum Osmolality Calcium Urine Color Yellow Urine Appearance Clear Urine pH 6.5 Ur Specific Clark 1.018 Urine Protein Trace Urine Glucose (UA) Negative Urine Ketones Negative Urine Blood 1+ H Urine Nitrite Negative Urine Bilirubin Negative Urine Urobilinogen 0.2 Ur Leukocyte Esterase Negative Urine WBC (Auto) 1 Urine RBC (Auto) 177 Urine Casts (Auto) 0 U Epithel Cells (Auto) 2 Urine Bacteria (Auto) 10 Urine Osmolality 555 Ur Random Sodium 46 Ur Random Potassium 52.0 Ur Random Chloride 27 L Active Medications Generic Name Dose Route Start Last Admin Trade Name Freq PRN Reason Stop Dose Admin Acetaminophen 650 mg 11/07/19 12:55 11/13/19 17:28 Tylenol - PO 650 mg Q6H PRN Administration PAIN LEVEL 4 - 6 Enoxaparin Sodium 40 mg 11/07/19 10:00 11/15/19 09:20 Lovenox - SQ 40 mg DAILY RONIT Administration Ceftriaxone Sodium 2 gm/ 100 mls @ 100 mls/hr 11/13/19 10:00 11/15/19 09:20 Dextrose IVPB 100 mls/hr DAILY RONIT Administration Protocol Sodium Chloride 1,000 mls @ 75 mls/hr 11/15/19 15:15 11/15/19 17:11 Normal Saline - IV 11/16/19 04:34 75 mls/hr ASDIR RONIT Administration Nystatin 500,000 units 11/06/19 18:00 11/15/19 17:43 Nystatin Oral Suspension - PO 500,000 units Q6HPO RONIT Administration Trimethoprim/Sulfamethoxazole 1 each 11/07/19 10:00 11/15/19 09:20 Bactrim Ds - PO 1 each DAILY RONIT Administration ASSESSMENT/PLAN: 58-year-old male past medical history of HIV for 30+ years, not currently on HAART, last CD4 count unknown, polysubstance abuse, history of TB, presents from [facility] for fever and cough. #Cavitary Pneumonia in the setting of untreated HIV, history of TB -fungitell positive: sent sputum fungal culture -+ Pneumoccal Ag -sputum cx show pansensitive klebsilla ID on case Dr Ritter----> HIV/AIDS CD4 6. C/w Ceftriaxone, f/u CXR Maintain AFB Isolation QuantiFERON negative AFB neg x3, pending PCR #HIV/AIDS CD4 count of 6. Patient reports was diagnosed with HIV in the late 80s, has been on HIV meds in the past, off for the last year -Currently on bactrim. 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 Pt is asymptomatic Trend sodium daily 1 L fluid restriction -Dr. Aggarwal on board---> " Obtain repeat urine electrolytes, urine osmolality. Serum osmolality 274, with concentrated urine osmolality and urine sodium greater than 100 suggestive of SIADH, however patient appears dry on exam. Suspect hypovolemic hyponatremia. Will challenge with IV normal saline at 75mL/ hour X1 Liter Agree with switching Bactrim to alternative agent given likely contribution to hyperkalemia Lokelma 10mg PO one time dose for hyperkalemia. Increased tubular flow with IV fluids will also assist with potassium excretion. Will also evaluate for adrenal insufficiency as potential etiology in setting of borderline BP. Follow AM cortisol Serum Creatinine increased to 1.3 (baseline at 1.0), consistent with SAMUEL. Will also obtain renal, bladder ultrasound. Monitor intake, output Avoid nephrotoxic agents Follow BMP #Hyperkalemia Possibly secondary to Bactrim. D/C Bactrim. Lokelma 10 mg po once. Trend BMP. #FEN No Fluids Monitor Electrolytes Reg Diet #DVT ppx: Michele SQ Daily #Dispo: Med Surg Visit type - Emergency Visit Emergency Visit: Yes ED Registration Date: 11/06/19 Care time: The patient presented to the Emergency Department on the above date and was hospitalized for further evaluation of their emergent condition. - New Patient This patient is new to me today: No - Critical Care Critical Care patient: No - Discharge Referral Referred to [facility] Med P.C[facility] No ATTENDING PHYSICIAN STATEMENT I saw and evaluated the patient. I reviewed the resident's note and discussed the case with the resident. I agree with the resident's findings and plan as documented. SUBJECTIVE: OBJECTIVE: ASSESSMENT AND PLAN:
[2019-11-16] MEDS: NYSTATIN 500,000 UNITS/5 ML SUSPENSION PO SCH ×3 (00:14→13:04)
--- NOTE | 2019-11-16 07:35 | PN ---
Progress Note, Physician History of Present Illness: pulmonary alert,comfortable ,-sob - Current Medication List Current Medications: Active Medications Acetaminophen (Tylenol -) 650 mg PO Q6H PRN PRN Reason: PAIN LEVEL 4 - 6 Last Admin: 11/13/19 17:28 Dose: 650 mg Documented by: Enoxaparin Sodium (Lovenox -) 40 mg SQ DAILY RONIT Last Admin: 11/15/19 09:20 Dose: 40 mg Documented by: Ceftriaxone Sodium 2 gm/ (Dextrose) 100 mls @ 100 mls/hr IVPB DAILY RONIT; Protocol Last Admin: 11/15/19 09:20 Dose: 100 mls/hr Documented by: Nystatin (Nystatin Oral Suspension -) 500,000 units PO Q6HPO RONIT Last Admin: 11/16/19 05:45 Dose: 500,000 units Documented by: Trimethoprim/Sulfamethoxazole (Bactrim Ds -) 1 each PO DAILY RONIT Last Admin: 11/15/19 09:20 Dose: 1 each Documented by: - Objective Vital Signs: Vital Signs Temperature 99 F 11/16/19 06:00 Pulse Rate 96 H 11/16/19 06:00 Respiratory Rate 18 11/16/19 06:00 Blood Pressure 95/57 L 11/16/19 06:00 O2 Sat by Pulse Oximetry (%) 98 11/16/19 06:00 Constitutional: Yes: Calm, Cachectic Eyes: Yes: WNL HENT: Yes: WNL Neck: Yes: WNL Cardiovascular: Yes: Regular Rate and Rhythm, S1, S2 Respiratory: Yes: Diminished Gastrointestinal: Yes: Normal Bowel Sounds, Soft Extremities: Yes: WNL Edema: No Labs: CBC, BMP 11/15/19 05:30 Problem List - Problems (1) Pneumonia Code(s): J18.9 - PNEUMONIA, UNSPECIFIED ORGANISM Qualifiers: Pneumonia type: due to unspecified organism Laterality: right Lung location: upper lobe of lung Qualified Code(s): J18.9 - Pneumonia, unspecified organism (2) HIV (human immunodeficiency virus infection) Code(s): B20 - HUMAN IMMUNODEFICIENCY VIRUS [HIV] DISEASE Qualifiers: HIV symptom status: unspecified Qualified Code(s): B20 - Human immunodeficiency virus [HIV] disease (3) Opioid dependence with withdrawal Code(s): F11.23 - OPIOID DEPENDENCE WITH WITHDRAWAL (4) CVA (cerebral vascular accident) Code(s): I63.9 - CEREBRAL INFARCTION, UNSPECIFIED (5) Cachexia associated with AIDS Code(s): B20 - HUMAN IMMUNODEFICIENCY VIRUS [HIV] DISEASE; R64 - CACHEXIA (6) Lives in homeless halfway Code(s): Z59.0 - HOMELESSNESS (7) Nicotine dependence Code(s): F17.200 - NICOTINE DEPENDENCE, UNSPECIFIED, UNCOMPLICATED (8) Cavitary pneumonia Code(s): J18.9 - PNEUMONIA, UNSPECIFIED ORGANISM; J98.4 - OTHER DISORDERS OF LUNG Assessment/Plan IMP CAVITARY PVEUMONIA HIV/AIDS NOT ON HAART H/O LATENT TB TREATED WITH INH X 6 MONTHS SUBSTANCE ABUSE TOBACCO ABUSE PLAN SUPPLEMENTAL O2 INHALED BRONCHODILATORS ABX PER ID COVID PCR NEGATIVE F/U CHEST X-RAYS DR LOVE Problem List - Problems (1) Pneumonia Code(s): J18.9 - PNEUMONIA, UNSPECIFIED ORGANISM Qualifiers: Pneumonia type: due to unspecified organism Laterality: right Lung location: upper lobe of lung Qualified Code(s): J18.9 - Pneumonia, unspecified organism (2) HIV (human immunodeficiency virus infection) Code(s): B20 - HUMAN IMMUNODEFICIENCY VIRUS [HIV] DISEASE Qualifiers: HIV symptom status: unspecified Qualified Code(s): B20 - Human immunodeficiency virus [HIV] disease (3) Opioid dependence with withdrawal Code(s): F11.23 - OPIOID DEPENDENCE WITH WITHDRAWAL (4) CVA (cerebral vascular accident) Code(s): I63.9 - CEREBRAL INFARCTION, UNSPECIFIED (5) Cachexia associated with AIDS Code(s): B20 - HUMAN IMMUNODEFICIENCY VIRUS [HIV] DISEASE; R64 - CACHEXIA (6) Lives in homeless halfway Code(s): Z59.0 - HOMELESSNESS (7) Nicotine dependence Code(s): F17.200 - NICOTINE DEPENDENCE, UNSPECIFIED, UNCOMPLICATED (8) Cavitary pneumonia Code(s): J18.9 - PNEUMONIA, UNSPECIFIED ORGANISM; J98.4 - OTHER DISORDERS OF LUNG
[2019-11-16] MEDS ORDERED: DEXTROSE 5%-WATER 100 ML IVPB ONE (08:56)
[2019-11-16] MEDS: ENOXAPARIN NA (PORCINE) 40 MG/0.4 ML DISP.SYRIN SQ SCH (09:06)
[2019-11-16] MEDS: CEFTRIAXONE 2 GM in DEXTROSE 5%-WATER 100 ML IVPB SCH (09:06)
[2019-11-16] MEDS: SULFAMETHOXAZOLE/TRIMETHOPRIM 800MG/160MG D.S. TABLET PO SCH (09:06)
[2019-11-16 11:52] LABS: BASO % 0.6 % (0-2.0); EOS % 10.1 % (0-4.5); HEMATOCRIT 35.2 % (35.4-49); HEMOGLOBIN 11.7 GM/dL (11.7-16.9); MCH 27.7 pg (25.7-33.7); MCHC 33.1 g/dl (32.0-35.9); MEAN CELL VOLUME 83.6 fl (80-96); MEAN PLT VOLUME 7.8 fl (7.5-11.1); MONO % 5.3 % (3.8-10.2); PLATELET COUNT 256 K/MM3 (134-434); RBC 4.21 M/mm3 (4.00-5.60); RDW 15.2 % (11.9-15.9); WHITE BLOOD COUNT 5.3 K/mm3 (4.0-10.0)
--- NOTE | 2019-11-16 12:02 | PN ---
Teaching Attending Note Name of Resident: Richar Aggarwal ATTENDING PHYSICIAN STATEMENT I saw and evaluated the patient. I reviewed the resident's note and discussed the case with the resident. I agree with the resident's findings and plan as documented. SUBJECTIVE: Seen and examined at bedside. Patient frustrated and wants to leave. Refused labs this morning. Requesting to leave AMA. Patient does not have any means of transportation or money to get back into the city. Social work asked to see patient OBJECTIVE PE: per resident note Labs/Imaging: reviewed ASSESSMENT/PLAN 58-year-old male past medical history of HIV for 30+ years, not currently on HAART, last CD4 count unknown, polysubstance abuse, history of TB, presents from [facility] for fever and cough. #Cavitary Pneumonia in the setting of untreated HIV, history of TB -fungitell positive: sent sputum fungal culture -sputum cx show pansensitive klebsilla ID on board: Appreciate recommendations QuantiFERON negitve AFB neg x3, pending PCR Continue ceftriaxone #HIV/AIDS CD4 count of 6. Patient reports was diagnosed with HIV in the late 80s, has been on HIV meds in the past, off for the last year -currently on bactrim -further recs per ID Discussed with ID: We will not restart on HAART now but will refer to the [facility] on discharge #Hyponatremia Nephrology on board: Appreciate recommendations Patient has refused labs this morning. If chooses to stay we will continue work-up #Hyperkalemia Possibly secondary to Bactrim. Will consult nephrology and discuss switching to alternate prophylactic medication with ID
[2019-11-16 12:17] LABS: ALBUMIN 1.7 g/dl (3.4-5.0); BILIRUBIN,TOTAL 0.1 mg/dL (0.2-1); BLOOD UREA NITROGEN 24.8 mg/dL (7-18); CREATININE 1.1 mg/dL (0.55-1.3); TOT PROT 8.7 g/dl (6.4-8.2)
--- NOTE | 2019-11-16 12:33 | PN ---
Progress Note, Physician History of Present Illness: Pt seen and examined at bedside. He is awake and alert. He had refused bloodwork in the morning. He agrees this afternoon after I spoke to home. He denies shortness of breath. - Current Medication List Current Medications: Active Medications Acetaminophen (Tylenol -) 650 mg PO Q6H PRN PRN Reason: PAIN LEVEL 4 - 6 Last Admin: 11/13/19 17:28 Dose: 650 mg Documented by: Enoxaparin Sodium (Lovenox -) 40 mg SQ DAILY [facility] Last Admin: 11/16/19 09:06 Dose: Not Given Documented by: Ceftriaxone Sodium 2 gm/ (Dextrose) 100 mls @ 100 mls/hr IVPB DAILY [facility]; Protocol Last Admin: 11/16/19 09:06 Dose: Not Given Documented by: Nystatin (Nystatin Oral Suspension -) 500,000 units PO Q6HPO [facility] Last Admin: 11/16/19 05:45 Dose: 500,000 units Documented by: Trimethoprim/Sulfamethoxazole (Bactrim Ds -) 1 each PO DAILY [facility] Last Admin: 11/16/19 09:06 Dose: Not Given Documented by: - Objective Vital Signs: Vital Signs Temperature 99 F 11/16/19 06:00 Pulse Rate 96 H 11/16/19 06:00 Respiratory Rate 18 11/16/19 06:00 Blood Pressure 95/57 L 11/16/19 06:00 O2 Sat by Pulse Oximetry (%) 98 11/16/19 06:00 Constitutional: Yes: Calm Eyes: Yes: Conjunctiva Clear HENT: Yes: Atraumatic Neck: Yes: Supple Cardiovascular: Yes: S1, S2 Respiratory: Yes: CTA Bilaterally Gastrointestinal: Yes: Soft Genitourinary: Yes: WNL Musculoskeletal: Yes: WNL Edema: No Neurological: Yes: Oriented Psychiatric: Yes: Oriented Labs: CBC, BMP 11/16/19 11:10 11/16/19 11:10 INR, PTT INR 1.77 (0.83-1.09) H 11/06/19 09:15 Assessment/Plan Current Medications Generic Name Dose Route Start Last Admin Trade Name Freq PRN Reason Stop Dose Admin Acetaminophen 650 mg 11/07/19 12:55 11/13/19 17:28 Tylenol - PO 650 mg Q6H PRN Administration PAIN LEVEL 4 - 6 Enoxaparin Sodium 40 mg 11/07/19 10:00 11/16/19 09:06 Lovenox - SQ Not Given DAILY [facility] Ceftriaxone Sodium 2 gm/ 100 mls @ 100 mls/hr 11/13/19 10:00 11/16/19 09:06 Dextrose IVPB Not Given DAILY [facility] Protocol Nystatin 500,000 units 11/06/19 18:00 11/16/19 05:45 Nystatin Oral Suspension - PO 500,000 units Q6HPO RONIT Administration Trimethoprim/Sulfamethoxazole 1 each 11/07/19 10:00 11/16/19 09:06 Bactrim Ds - PO Not Given DAILY [facility] Laboratory Tests 11/15/19 15:00 Urine Osmolality 687 Ur Random Sodium 32 L Impression 1. hyponatremia 2. hyperkalemia 3. r/o TB 4. HIV 5. polysubstance - heroin and cocaine 6. malnutrition 7. unintentional weight loss 8. mima with mildly elevated net front end developer Plan - sodium is improving - pt is responding to saline - cont with saline - repeat urine sodium was low which is consistent with a pre-renal picture particularly in the setting of a pt that appears hypovolemic - cont to monitor lytes - check bmp daily - can cont bactrim as net front end developer and potassium improved - will re-order cortisol as he refused labs this morning - check renal ultrasound
[2019-11-16 12:37] LABS: ANISOCYTOSIS 0; MACROCYTOSIS 0; PLATELET ESTIMATE NORMAL
[2019-11-16] MEDS ORDERED: SODIUM CHLORIDE 1,000 ML IV SCH (12:45)
[2019-11-16 14:48] VITALS: BP 104/62; PULSE 94; TEMP 98.9
--- NOTE | 2019-11-16 15:25 | DS ---
Physical Exam: SUBJECTIVE: Patient seen and examined at bedside. He is agitated, and refuses to stay in hospital any longer. OBJECTIVE: Vital Signs Period Temp Pulse Resp BP Sys/Carrera Pulse Ox Last 24 Hr 98.4 F-99.7 F 94-110 18-19 95-111/57-67 96-98 PHYSICAL EXAM GENERAL: The patient is awake, alert, and fully oriented. Agitated. HEAD: Normocephalic, atraumatic. EYES: PERRL, extraocular movements intact, sclera anicteric, conjunctiva clear. ENT: Oropharynx clear, without erythema or exudates. Dry mucous membranes. NECK: Supple without lymphadenopathy. LUNGS: Breath sounds equal, clear to auscultation bilaterally. No wheezes, no crackles. No accessory muscle use. HEART: Regular rate and rhythm. S1, S2 without murmur, rub or gallop. ABDOMEN: Soft, nondistended, nontender to palpation x4 quadrants. Normoactive bowel sounds x4 quadrants. EXTREMITIES: 2+ radial, dorsalis pedis pulses bilaterally. Warm, well-perfused. No lower extremity edema bilaterally. NEUROLOGICAL: Cranial nerves II through XII grossly intact. Normal speech. No gross focal deficits. PSYCH: Normal mood, normal affect upon my encounter. SKIN: Warm, dry. LABS Laboratory Results - last 24 hr 11/15/19 11/15/19 11/15/19 15:00 17:18 17:18 WBC RBC Hgb Hct MCV MCH MCHC RDW Plt Count MPV Absolute Neuts (auto) Neutrophils % Neutrophils % (Manual) Band Neutrophils % Lymphocytes % Lymphocytes % (Manual) Monocytes % Monocytes % (Manual) Eosinophils % Eosinophils % (Manual) Basophils % Basophils % (Manual) Myelocytes % (Man) Promyelocytes % (Man) Blast Cells % (Manual) Nucleated RBC % Metamyelocytes Hypochromia Platelet Estimate Polychromasia Poikilocytosis Anisocytosis Microcytosis Macrocytosis Sodium Potassium Chloride Carbon Dioxide Anion Gap BUN Creatinine Est GFR (CKD-EPI)AfAm Est GFR (CKD-EPI)NonAf Random Glucose Calcium Total Bilirubin AST ALT Alkaline Phosphatase Total Protein Albumin Urine Color Yellow Urine Appearance Clear Urine pH 6.5 Ur Specific [place] 1.018 Urine Protein Trace Urine Glucose (UA) Negative Urine Ketones Negative Urine Blood 1+ H Urine Nitrite Negative Urine Bilirubin Negative Urine Urobilinogen 0.2 Ur Leukocyte Esterase Negative Urine WBC (Auto) 1 Urine RBC (Auto) 177 Urine Casts (Auto) 0 U Epithel Cells (Auto) 2 Urine Bacteria (Auto) 10 Urine Osmolality 687 555 Ur Random Sodium 32 L 46 Ur Random Potassium 66.0 52.0 Ur Random Chloride < 11 L 27 L 11/16/19 11/16/19 11:10 11:10 WBC 5.3 RBC 4.21 Hgb 11.7 Hct 35.2 L MCV 83.6 MCH 27.7 MCHC 33.1 RDW 15.2 Plt Count 256 MPV 7.8 Absolute Neuts (auto) 3.8 Neutrophils % 71.0 Neutrophils % (Manual) 65.0 Band Neutrophils % 10.0 Lymphocytes % 13.0 Lymphocytes % (Manual) 13.0 Monocytes % 5.3 Monocytes % (Manual) 3 L Eosinophils % 10.1 H Eosinophils % (Manual) 6.0 H Basophils % 0.6 Basophils % (Manual) 1.0 Myelocytes % (Man) 0 Promyelocytes % (Man) 0 Blast Cells % (Manual) 0 Nucleated RBC % 0 Metamyelocytes 1 D Hypochromia 0 Platelet Estimate Normal Polychromasia 0 Poikilocytosis 0 Anisocytosis 0 Microcytosis 0 Macrocytosis 0 Sodium 128 L Potassium 5.0 Chloride 97 L Carbon Dioxide 27 Anion Gap 4 L BUN 24.8 H Creatinine 1.1 Est GFR (CKD-EPI)AfAm 84.12 Est GFR (CKD-EPI)NonAf 72.58 Random Glucose 99 Calcium 8.0 L Total Bilirubin 0.1 L AST 44 H ALT 27 Alkaline Phosphatase 95 Total Protein 8.7 H Albumin 1.7 L Urine Color Urine Appearance Urine pH Ur Specific [place] Urine Protein Urine Glucose (UA) Urine Ketones Urine Blood Urine Nitrite Urine Bilirubin Urine Urobilinogen Ur Leukocyte Esterase Urine WBC (Auto) Urine RBC (Auto) Urine Casts (Auto) U Epithel Cells (Auto) Urine Bacteria (Auto) Urine Osmolality Ur Random Sodium Ur Random Potassium Ur Random Chloride HOSPITAL COURSE: Date of Admission:11/06/19 Date of Discharge: 11/16/19 Patient is a 58 year old male with history of HIV (previously on HAART, however has not taken in the past year, CD4 count 6) polysubstance use disorder (heroin, crack cocaine), prior TB, presented from [facility] facility with complaint of fever and cough. CT chest revealed cavitary pneumonia. Quantiferon gold negative, in addition to AFB negative x3. Sputum culture positive for pansensitive klebsiella. Patient treated with Ceftriaxone, Bactrim. Noted SAMUEL with hyperkalemia and hypovolemic hyponatremia which improved with gentle IV normal saline hydration. Patient became agitated and refused to remain in hospital for further management. Patient is of sound mind with capacity to make decisions, and was counselled regarding risks. Patient was provided follow up information, and counselled to present to a hospital for further management. Minutes to complete discharge: 36 Discharge Summary Problems reviewed: Yes Reason For Visit: HIV INFECTION/PNEUMONIA Current Active Problems Cavitary pneumonia (Acute) Pneumonia (Acute) HIV (human immunodeficiency virus infection) (Chronic) Condition: Guarded - Instructions Diet, Activity, Other Instructions: You came in for fevers and cough. We imaged your chest and saw sign of an infection. We started you on IV antibiotics. ou were seen by an infectious Disease specialist. You have HIV and are not on medications to treat this. Please follow up with your PCP to start medications to treat your HIV. Please follow up with your PCP (Primary Care Provider) for routine cancer screening. You are very thin, which can be a sign that you have cancer. Please take Bactirim DS ONCE a day to prevent infections as your immune system is weak because of your HIV. Please STOP taking drugs as this can further weaken your immune system and may lead to a serious infection that can kill you. You tested positive for signs that you have or had Syphillis in the past. If you were never treated for this you NEED treatment. Please follow up with your PCP to continue treatment. Please follow up with your Infectious Disease specialist to begin/resume treatment for your HIV. We have provided Dr. Dan for you. Referrals: [facility] [place] [Provider Group] - 1 Week Theresa Dan MD [Staff Physician] - 1 Week Disposition: AGAINST MEDICAL ADVICE - Home Medications Comprehensive Discharge Medication List: Ambulatory Orders Nystatin Oral Suspension - [Nystatin Oral Susp 418440 Units/5 ML -] 500,000 units PO Q6HPO cup 11/03/19 Sulfamethoxazole/Trimethoprim [Bactrim DS -] 1 each PO DAILY #30 tablet 11/08/19 This patient is new to me today: No Emergency Visit: Yes ED Registration Date: 11/06/19 Care time: The patient presented to the Emergency Department on the above date and was hospitalized for further evaluation of their emergent condition. Critical Care patient: No - Discharge Referral Referred to [facility] No ATTENDING PHYSICIAN STATEMENT I saw and evaluated the patient. I reviewed the resident's note and discussed the case with the resident. I agree with the resident's findings and plan as documented. SUBJECTIVE: OBJECTIVE: ASSESSMENT AND PLAN:
--- NOTE | 2019-11-17 10:05 | EKG ---
Test Reason : Blood Pressure : / mmHG Vent. Rate : 094 BPM Atrial Rate : 094 BPM P-R Int : 142 ms QRS Dur : 074 ms QT Int : 344 ms P-R-T Axes : 070 081 062 degrees QTc Int : 430 ms POOR DATA QUALITY, INTERPRETATION MAY BE ADVERSELY AFFECTED NORMAL SINUS RHYTHM NORMAL ECG WHEN COMPARED WITH ECG OF 06-NOV-2019 10:14, NO SIGNIFICANT CHANGE WAS FOUND Confirmed by Neal Bruner ([id number]) on 11/17/2019 10:04:56 AM Referred By: Confirmed By:Neal Bruner
== END 2019-11-16 16:23 | disposition left against medical advice (07) | DRG 892 ==
LOC: JER 08:54 → JERBED 11:24 → J4S 19:17
PROVIDERS: ADMIT Internal Medicine; ATTEND Internal Medicine
DX: J18.8 Other pneumonia, unspecified organism (principal); B37.0 Candidal stomatitis; I69.351 Hemiplegia and hemiparesis following cerebral infarction affecting right dominant side; E87.2 Acidosis; D64.9 Anemia, unspecified; Z59.0 Homelessness; E87.5 Hyperkalemia; B96.1 Klebsiella pneumoniae [K. pneumoniae] as the cause of diseases classified elsewhere; R64 Cachexia; N17.9 Acute kidney failure, unspecified; Z68.1 Body mass index [BMI] 19.9 or less, adult; F14.20 Cocaine dependence, uncomplicated; E46 Unspecified protein-calorie malnutrition; E87.1 Hypo-osmolality and hyponatremia; F17.210 Nicotine dependence, cigarettes, uncomplicated; J98.4 Other disorders of lung; F11.23 Opioid dependence with withdrawal; B20 Human immunodeficiency virus [HIV] disease; Z86.15 Personal history of latent tuberculosis infection
CPT/HCPCS: 36415; 71045-TC-FY; 71250-TC; 80048; 80053; 81003; 82436; 82550; 82962; 83605; 83735; 83930; 83935; 84100; 84133; 84300; 84484; 85025; 85027; 85610; 85730; 86359; 86360; 86480; 87040; 87070; 87086; 87116; 87186; 87205; 87206; 87305; 87449; 87536; 87556; 87899; 93005; 93010; 97116-GP; 97162-GP; 99285-25; U0003